=== PATIENT | female | born 1995 | race Caucasian/White ===

== ENCOUNTER 2020-08-31 16:00 | Outpatient (RCR) | payer MEDICAID, SELFPAY | END 2020-09-14 10:52 | disposition other institution (70) | LOC: HO.PT 16:00 | PROVIDERS: PCP Emergency Medicine; Visit Provider Emergency Medicine | DX: M51.36 Other intervertebral disc degeneration, lumbar region (principal); M54.41 Lumbago with sciatica, right side | CPT/HCPCS: 97110; 97112; 97140; 97161 ==

== ENCOUNTER 2020-10-28 10:05 | Outpatient (REF) | payer MEDICAID, SELFPAY ==
[2020-10-29 12:02] LABS: BV Int Neg Control Negative (Negative); BV Int Pos Control Positive (Positive)
[2020-10-30 03:51] LABS: C. trachomatis RNA TMA NOT DETECTED (NOT DETECTED); N. gonorrhoeae RNA TMA NOT DETECTED (NOT DETECTED)
== END 2020-10-28 10:06 | disposition home or self-care (01) ==
LOC: HO.LAB 10:05
PROVIDERS: Visit Provider Advanced Practice Midwife
DX: Z01.419 Encounter for gynecological examination (general) (routine) without abnormal findings (principal); N92.6 Irregular menstruation, unspecified; E66.9 Obesity, unspecified; Z86.32 Personal history of gestational diabetes; Z20.2 Contact with and (suspected) exposure to infections with a predominantly sexual mode of transmission
CPT/HCPCS: 36415; 87480; 87491; 87510; 87591; 87660; 88142

== ENCOUNTER 2020-11-29 13:10 | Outpatient (REF) | payer MEDICAID, SELFPAY ==
[2020-11-29 14:39] LABS: Glucose Fasting 118 mg/dL (60-99)
[2020-11-30 08:47] LABS: Syphilis Screen Nonreactive (Nonreactive)
[2020-11-30 12:36] LABS: CT PCR NOT DETECTED (Not Detect.); NG PCR NOT DETECTED (Not Detect.)
[2020-12-01 04:34] LABS: HIV AB/AG Nonreactive (Nonreactive); HIV Num 1 0.16 S/CO (0.00-0.99); ~HepC Num1 0.07 S/CO (0.00-0.79); ~Hepatitis C Antibody Nonreactive (Nonreactive)
[2020-12-01 04:49] LABS: HBsAGNum1 0.21 S/CO (0.00-0.99); Hepatitis B Surface Antigen Negative (Negative)
== END 2020-11-29 13:11 | disposition home or self-care (01) ==
LOC: HO.LAB 13:10
PROVIDERS: Visit Provider Advanced Practice Midwife
DX: Z01.419 Encounter for gynecological examination (general) (routine) without abnormal findings (principal); Z01.84 Encounter for antibody response examination; Z11.3 Encounter for screening for infections with a predominantly sexual mode of transmission; Z11.4 Encounter for screening for human immunodeficiency virus [HIV]; N92.6 Irregular menstruation, unspecified; E66.9 Obesity, unspecified; Z20.2 Contact with and (suspected) exposure to infections with a predominantly sexual mode of transmission; Z86.32 Personal history of gestational diabetes
CPT/HCPCS: 82947; 86780; 86803; 87340; 87389; 87491; 87591

== ENCOUNTER → 2020-12-20 10:11 | Outpatient (BNVA) | payer MEDICAID, SELFPAY | PROVIDERS: Visit Provider Advanced Practice Midwife ==

== ENCOUNTER → 2021-01-09 09:01 | Outpatient (BNVA) | payer MEDICAID, SELFPAY | PROVIDERS: PCP Nurse Practitioner Family; Visit Provider Nurse Practitioner Family | DX: M53.3 Sacrococcygeal disorders, not elsewhere classified (principal); M54.16 Radiculopathy, lumbar region | CPT/HCPCS: 99202 ==

== ENCOUNTER 2021-01-25 19:00 | Emergency (ER) | payer MEDICAID, SELFPAY ==
--- NOTE | ~2021-01-25 | US_ITS ---
EXAMINATION: ULTRASOUND PELVIC, COMPLETE CLINICAL INFORMATION: Right lower quadrant pain. Positive test. COMPARISON: Pelvic ultrasound 01/29/2019 TECHNIQUE: Transvaginal: Used to better visualize pelvic structures Transabdominal: Not adequate for visualization Spectral Doppler and color Doppler exam was utilized. LMP: 12/16/2020. Gestational age by LMP is 5 weeks 5 days. LINDSAY 09/22/2021 FINDINGS: UTERUS: Single intrauterine gestation. Gestational sac and yolk sac present. Gestational sac, 0.44 cm. Estimated gestational age by this measurement is 5 weeks 0 days.. Gestational sac does lie close to the serosal wall the uterus measuring 0.6 cm in depth. Image 47/57. Gestational sac is at the fundus of the uterus. (This does not therefore meet criteria for interstitial .) Incidental note made of a subserosal cyst in the myometrium of uterus measuring 7 mm. Uterus measures 7.1 x 4.7 x 4.6 cm. ADNEXA: Ovarian vascularity:Doppler demonstrates both arterial and venous vascular flow in the right and left ovary. No evidence of ovarian torsion. Right Ovary: 4.1 x 2.3 x 2.5 cm. Corpus luteum cyst measuring 2.1 x 1.8 x 1.8 cm Left Ovary: 3.4 x 1.7 x 1.4 cm. There is a 0.7 cm echogenic focus without posterior acoustic shadowing within the left ovary. Cul-de-sac: No Fluid US/US OB pelvic and transvaginal IMPRESSION: Single intrauterine gestation. Gestational sac measures 0.44 cm correlating to estimated gestational age of 5 weeks 0 days. This result was discussed with Dr. Maguire. on 01/25/2021, 11:00 PM and it was ascertained that the content and urgency of the report was understood at the time of direct communication.
[2021-01-25 20:26] VITALS: BP 123/67; PULSE 112; RESP 16; TEMP 36.9; O2SAT 96; BMI 36.8
[2021-01-25 21:22] LABS: MANUAL DIFF FLAG NO
[2021-01-25 21:24] LABS: Basophils Percent Auto 0.2 % (0-2); Eosinophils Absolute Auto 0.2 X10*3/uL (0.0-0.4); Eosinophils Percent Auto 1.6 % (0-4); Hemoglobin 13.4 g/dl (12.0-16.0); Imm Gran Abs Auto 0.05 X10*3/uL (0.00-0.03); Imm Gran Pct Auto 0.4 % (0.0-0.4); Lymphocytes Absolute Auto 2.8 X10*3/uL (1.2-4.9); Mean Corpuscular HGB Conc 33.5 g/dl (31.0-35.0); Mean Corpuscular Hemoglobin 28.9 pg (27.0-33.0); Mean Corpuscular Volume 86.2 fL (80-98); Mean Platelet Volume 9.8 fL (9.4-12.3); Monocytes Absolute Auto 0.7 X10*3/uL (0.1-1.2); Monocytes Percent Auto 5.4 % (2-11); Neutrophils Absolute Auto 8.5 X10*3/uL (2.0-8.3); Neutrophils Percent Auto 69.4 % (45-73); Platelet Count 313 X10*3/uL (160-400); Red Blood Count 4.64 X10*6/uL (4.20-5.50); Red Cell Distribution Width 13.2 % (11.0-16.0); White Blood Count 12.2 X10*3/uL (4.8-10.8)
[2021-01-25 21:42] LABS: Appearance Urine HAZY; Color Urine YELLOW; Glucose Urine UA 250 MG/DL (NEG); Leukocyte Esterase Urine 1+ (NEG); Nitrite Urine NEG (NEG); Specific Gravity - Urine 1.025 (1.005-1.025); UACC Culture Trigger YES; Urine Blood NEG (NEG); Urine Ketones 5 MG/DL (NEG); Urine Protein NEG (NEG-TRACE)
[2021-01-25 21:47] LABS: Anion Gap 14 (12-20); Blood Urea Nitrogen 11 mg/dL (9-16); Calcium 9.5 mg/dL (8.4-10.2); Carbon Dioxide 23 mmol/L (22-29); Chloride 104 mmol/L (96-108); Creatinine Clr Calc Pharmacy 127.8; Estimated Glomerular Filt Rate > 60; Glucose Random 154 mg/dL (60-115); Potassium 3.9 mmol/L (3.3-5.1); Sodium 137 mmol/L (135-145)
[2021-01-25 21:51] LABS: Bacteria Urine 1+ /LPF; RBC Urine 0 /HPF (0); Squamous Epithelial Cell Urine 1+ /LPF; WBC Urine 0-2 /HPF (0-4)
--- NOTE | 2021-01-25 21:52 | ED_ITS ---
HPI - Abdominal Pain General Chief Complaint: Abdominal Pain Stated Complaint: pain on right side of stomach Time Seen by Provider: 01/25/21 21:04 Source: patient Mode of arrival: ambulatory History of Present Illness HPI narrative: This is a 25-year-old female, with LMP-12/21 and presents now with onset of right lower quadrant pain since 0 not associated with fever, chills, nausea, vomiting, but reports a couple episodes of diarrhea as well as urinary frequency but no urinary pain/burning. In addition, patient denies any trauma or vaginal bleeding to me but on review of report in triage states that she had a difficult (she does mention loss in the 1st ) and states that she was recently diagnosed with diabetes 2-3 weeks ago and was started on metformin at that time. Related Data Home Medications Medication Instructions Recorded Confirmed cholecalciferol (vitamin D3) 25 25 mcg PO DAILY 10/28/20 01/09/21 mcg (1,000 unit) capsule naproxen 375 mg tablet 375 mg PO BID PRN 01/09/21 01/09/21 Previous Rx's Medication Instructions Recorded metronidazole 0.75 % vaginal gel 1 appful VAGINAL BEDTIME 5 Days 11/08/20 #70 g nitrofurantoin monohyd/m-cryst 100 mg PO Q12H 7 Days #14 cap 01/26/21 [Macrobid] Allergies Allergy/AdvReac Type Severity Reaction Status Date / Time SEAFOOD AdvReac Unknown DIFFICULTY Uncoded 01/25/21 20:31 BREATHING Review of Systems Review of Systems Pertinent positives and negatives as stated in HPI 10 point review of systems is otherwise negative. Physical Exam Vital Signs: Vital Signs: Last Vital Signs Temp 98.2 F 01/25/21 22:00 Pulse 79 01/25/21 22:00 Resp 18 01/25/21 22:00 BP 111/69 01/25/21 22:00 Pulse Ox 99 01/25/21 22:00 Body Mass Index 36.8 VITAL SIGNS: Reviewed. GENERAL: Well developed, well nourished, in no acute distress. HEAD: Normocephalic/atraumatic EYES: PERRLA, EOMI OROPHARYNX: no oral lesions noted, posterior pharynx clear NECK: Supple, no adenopathy LUNGS: Normal breath sounds. No adventitious sounds or accessory muscle use. SpO2<96> CARDIOVASCULAR: Regular rate and rhythm without noted murmurs ABDOMEN: Soft, tenderness on palpation in the right lower quadrant without rebound, non-distended with bowel sounds. SKIN: Inspection of the skin reveals no rashes NEUROLOGIC: Alert and oriented x 4. Course Course Course Narrative: This is a 25-year-old female with history and clinical presentation concerning for possible ectopic, appendicitis, ovarian torsion and less likely UTI. On review of all investigations patient has a UTI and received initial antibiotics here in the emergency room and then was discharged with remaining course. In addition the case was discussed with Obstetrics, Dr. Iglesias, with recommendations for the patient to call in case abdominal pain and to repeat ultrasound in 24 hours to reassess. Reevaluation(s) Reevaluation #1: IUP at fundus, 5.5wks, yolk sac, no pole as it is too early. Time: 22:57 MDM - Abdominal Pain Lab Data Result diagrams: 01/25/21 22:01 01/25/21 21:17 Labs: Lab Results 01/25/21 01/25/21 01/25/21 Range/Units 21:17 21:17 21:17 WBC 12.2 H (4.8-10.8) X10*3/uL RBC 4.64 (4.20-5.50) X10*6/uL Hgb 13.4 (12.0-16.0) g/dl Hct 40.0 (37-47) % MCV 86.2 (80-98) fL MCH 28.9 (27.0-33.0) pg MCHC 33.5 (31.0-35.0) g/dl RDW 13.2 (11.0-16.0) % Plt Count 313 (160-400) X10*3/uL MPV 9.8 (9.4-12.3) fL Immature Gran % (Auto) 0.4 (0.0-0.4) % Neut % (Auto) 69.4 (45-73) % Lymph % (Auto) 23.0 (20-40) % Dickens % (Auto) 5.4 (2-11) % Eos % (Auto) 1.6 (0-4) % Baso % (Auto) 0.2 (0-2) % Lymph # (Auto) 2.8 (1.2-4.9) X10*3/uL Dickens # (Auto) 0.7 (0.1-1.2) X10*3/uL Eos # (Auto) 0.2 (0.0-0.4) X10*3/uL Baso # (Auto) 0.0 (0.0-0.2) X10*3/uL Abs Immat Gran (auto) 0.05 H (0.00-0.03) X10*3/uL Absolute Neuts (auto) 8.5 H (2.0-8.3) X10*3/uL Absolute Nucleated RBC 0.000 (0.0-0.012) X10*3/uL Nucleated RBC % (auto) 0.0 (0.0-0.2) /100WBC Sodium 137 (135-145) mmol/L Potassium 3.9 (3.3-5.1) mmol/L Chloride 104 (96-108) mmol/L Carbon Dioxide 23 (22-29) mmol/L Anion Gap 14 (12-20) BUN 11 (9-16) mg/dL Creatinine 0.75 (0.5-1.4) mg/dL Estim Creat Clear Calc 127.8 Estimated GFR > 60 Random Glucose 154 H (60-115) mg/dL Calcium 9.5 (8.4-10.2) mg/dL Beta HCG, Quant 2207 mIU/mL Urine Color Urine Appearance Urine pH (5.0-8.0) Ur Specific [place] (1.005-1.025) Urine Protein (NEG-TRACE) MG/DL Urine Glucose (UA) (NEG) MG/DL Urine Ketones (NEG) MG/DL Urine Blood (NEG) Urine Nitrite (NEG) Ur Leukocyte Esterase (NEG) Urine RBC (0) /HPF Urine WBC (0-4) /HPF Ur Squamous Epith Cells /LPF Urine Bacteria /LPF 01/25/21 01/25/21 Range/Units 21:17 22:01 WBC 12.2 H (4.8-10.8) X10*3/uL RBC 4.17 L (4.20-5.50) X10*6/uL Hgb 12.1 (12.0-16.0) g/dl Hct 36.2 L (37-47) % MCV 86.8 (80-98) fL MCH 29.0 (27.0-33.0) pg MCHC 33.4 (31.0-35.0) g/dl RDW 13.2 (11.0-16.0) % Plt Count 298 (160-400) X10*3/uL MPV 9.8 (9.4-12.3) fL Immature Gran % (Auto) 0.4 (0.0-0.4) % Neut % (Auto) 66.8 (45-73) % Lymph % (Auto) 24.5 (20-40) % Dickens % (Auto) 6.1 (2-11) % Eos % (Auto) 2.0 (0-4) % Baso % (Auto) 0.2 (0-2) % Lymph # (Auto) 3.0 (1.2-4.9) X10*3/uL Dickens # (Auto) 0.7 (0.1-1.2) X10*3/uL Eos # (Auto) 0.3 (0.0-0.4) X10*3/uL Baso # (Auto) 0.0 (0.0-0.2) X10*3/uL Abs Immat Gran (auto) 0.05 H (0.00-0.03) X10*3/uL Absolute Neuts (auto) 8.2 (2.0-8.3) X10*3/uL Absolute Nucleated RBC 0.000 (0.0-0.012) X10*3/uL Nucleated RBC % (auto) 0.0 (0.0-0.2) /100WBC Sodium (135-145) mmol/L Potassium (3.3-5.1) mmol/L Chloride (96-108) mmol/L Carbon Dioxide (22-29) mmol/L Anion Gap (12-20) BUN (9-16) mg/dL Creatinine (0.5-1.4) mg/dL Estim Creat Clear Calc Estimated GFR Random Glucose (60-115) mg/dL Calcium (8.4-10.2) mg/dL Beta HCG, Quant mIU/mL Urine Color YELLOW Urine Appearance HAZY Urine pH 6.0 (5.0-8.0) Ur Specific [place] 1.025 (1.005-1.025) Urine Protein NEG (NEG-TRACE) MG/DL Urine Glucose (UA) 250 H (NEG) MG/DL Urine Ketones 5 (NEG) MG/DL Urine Blood NEG (NEG) Urine Nitrite NEG (NEG) Ur Leukocyte Esterase 1+ H (NEG) Urine RBC 0 (0) /HPF Urine WBC 0-2 (0-4) /HPF Ur Squamous Epith Cells 1+ /LPF Urine Bacteria 1+ /LPF Discharge Plan Discharge Clinical Impression: , Abdominal pain during intrauterine Patient Disposition: Home, Self-Care Instructions: (ED) Additional Instructions: 1. Empiece a ana maría vitaminas prenatales si a?n no lo valdez hecho. 2. Establecer cuidados con obstetricia. 3. Si experimenta un aumento del dolor, llame a garnica obstetra o regrese a la antoinette de emergencias. 4. Puede usar Tylenol para el dolor t?ligia bruce el embarazo. Regrese a la antoinette de emergencias por cualquier empeoramiento real de beau s?ntomas. Prescriptions: New nitrofurantoin monohyd/m-cryst [Macrobid] 100 mg capsule 100 mg PO Q12H 7 Days Qty: 14 RF: 0 No Action metronidazole [Metrogel Vaginal] 0.75 % gel 1 appful vaginal BEDTIME 5 Days Qty: 70 RF: 0 cholecalciferol (vitamin D3) 25 mcg (1,000 unit) capsule 25 mcg PO DAILY RF: 0 naproxen 375 mg tablet 375 mg PO BID PRNRF: 0 Referrals: [facility] [Primary Care Provider] - 2 days Print Language: Irish [facility] Past Medical History Source: nursing notes reviewed Medical History Hx gestational diabetes Social History Social History Alcohol intake: never Patient Tobacco Use Status: Current everyday Tobacco user Cigarettes Per Day: 4 Use of substances other than those prescribed or required for medical reasons: No Advance Directives: No Patient : Yes Gender identity: female
[2021-01-25 21:54] LABS: HCG Quantitative 2207 mIU/mL
[2021-01-25 22:00] VITALS: BP 111/69; PULSE 79; RESP 18; TEMP 36.8; O2SAT 99
[2021-01-25 22:13] LABS: Basophils Percent Auto 0.2 % (0-2); Eosinophils Absolute Auto 0.3 X10*3/uL (0.0-0.4); Hematocrit 36.2 % (37-47); Hemoglobin 12.1 g/dl (12.0-16.0); Imm Gran Abs Auto 0.05 X10*3/uL (0.00-0.03); Imm Gran Pct Auto 0.4 % (0.0-0.4); Lymphocytes Percent Auto 24.5 % (20-40); MANUAL DIFF FLAG NO; Mean Corpuscular HGB Conc 33.4 g/dl (31.0-35.0); Mean Corpuscular Volume 86.8 fL (80-98); Mean Platelet Volume 9.8 fL (9.4-12.3); Monocytes Absolute Auto 0.7 X10*3/uL (0.1-1.2); Monocytes Percent Auto 6.1 % (2-11); Neutrophils Absolute Auto 8.2 X10*3/uL (2.0-8.3); Neutrophils Percent Auto 66.8 % (45-73); Platelet Count 298 X10*3/uL (160-400); Red Blood Count 4.17 X10*6/uL (4.20-5.50); Red Cell Distribution Width 13.2 % (11.0-16.0); White Blood Count 12.2 X10*3/uL (4.8-10.8)
[2021-01-25] MEDS: cefTRIAXone sodium 1 GM in 0.9 % Sodium Chloride 50 ML IV (23:10)
== END 2021-01-26 00:47 | disposition home or self-care (01) ==
PROVIDERS: Emergency Provider Student in an Organized Health Care Education/Training Program
DX: O26.891 Other specified pregnancy related conditions, first trimester (principal); R10.31 Right lower quadrant pain; O34.81 Maternal care for other abnormalities of pelvic organs, first trimester; N83.11 Corpus luteum cyst of right ovary; O34.591 Maternal care for other abnormalities of gravid uterus, first trimester; N85.8 Other specified noninflammatory disorders of uterus; O24.415 Gestational diabetes mellitus in pregnancy, controlled by oral hypoglycemic drugs; O99.331 Smoking (tobacco) complicating pregnancy, first trimester; F17.210 Nicotine dependence, cigarettes, uncomplicated; Z3A.01 Less than 8 weeks gestation of pregnancy
CPT/HCPCS: 36415; 76801; 76817; 80048; 81001; 81003; 84702; 85025; 87086; 96365; 99284; J0696

== ENCOUNTER 2021-02-02 10:19 | Outpatient (REF) | payer MEDICAID, SELFPAY ==
[2021-02-02 12:46] LABS: HCG Quantitative 11827 mIU/mL
== END 2021-02-02 10:20 | disposition home or self-care (01) ==
LOC: HO.LAB 10:19
PROVIDERS: Visit Provider Advanced Practice Midwife
DX: O20.0 Threatened abortion (principal); O99.330 Smoking (tobacco) complicating pregnancy, unspecified trimester; F17.210 Nicotine dependence, cigarettes, uncomplicated
CPT/HCPCS: 36415; 84702; 86850; 86900; 86901; 99212

== ENCOUNTER → 2021-02-07 10:31 | Outpatient (BNVA) | payer MEDICAID, SELFPAY | PROVIDERS: Visit Provider Advanced Practice Midwife ==

== ENCOUNTER 2021-02-10 14:27 | Outpatient (REF) | payer MEDICAID, SELFPAY ==
--- NOTE | ~2021-02-10 | US_ITS ---
EXAMINATION: US OBSTETRICAL ULTRASOUND CLINICAL INFORMATION: Bleeding COMPARISON: Previous OB ultrasound most recent 01/25/2021 LMP: 12/16/2020. Gestational age by maternal dates is 8 weeks 0 days. Estimated date of delivery by maternal dates is 09/22/2021. TECHNIQUE: Transabdominal first trimester OB ultrasound FINDINGS: There is a single intrauterine gestational sac with visible yolk sac, embryo/fetus, and cardiac activity. There is no significant subchorionic hemorrhage or hematoma. HR: 160 beats per minute. CRL (crown rump length): 1.35 cm (7 weeks 5 days +/- 4 days). LINDSAY (estimated date of delivery): 09/24/2021 +/- 4 days. MATERNAL ADNEXA: The right maternal ovary measures 3.6 x 3.1 x 2.3 cm. The left maternal ovary measures 3.4 x 1.9 x 1.8 cm. There is no significant maternal adnexal mass. No maternal pelvic ascites. US/US OB <= 14 weeks fetus IMPRESSION: 1. Single intrauterine gestation with ultrasound gestational age of 7 weeks 5 days +/- 4 days. 2. Estimated date of delivery is 09/24/2021 +/- 4 days.
== END 2021-02-10 14:28 | disposition home or self-care (01) ==
LOC: HO.US 14:27
PROVIDERS: Visit Provider Advanced Practice Midwife
DX: O20.9 Hemorrhage in early pregnancy, unspecified (principal)
CPT/HCPCS: 76801

== ENCOUNTER 2021-02-19 17:45 | Emergency (ER) | payer MEDICAID, SELFPAY ==
--- NOTE | ~2021-02-19 | US_ITS ---
EXAMINATION: US OBSTETRICAL ULTRASOUND CLINICAL INFORMATION: Vaginal bleeding Real-time imaging by the pulping machine operator. Findings; Single live intrauterine . Salome-rump length 2.2 cm corresponds to 8 weeks 6 days. Positive heart rate 169 bpm. There is a yolk sac. There is lucency seen adjacent to the gestational sac. This would be most consistent with subchorionic bleed. The right ovary is 3.9 x 3 x 2.9 cm. Small 2.1 x 1.7 cm cyst associated The left ovary is measuring 2.7 x 1.8 x 2.1 cm. No suspicious fluid in the cul-de-sac. US/US OB <= 14 weeks fetus IMPRESSION: Single live intrauterine . 9 weeks by ultrasound criteria. There is a fluid collection measured by the pulping machine operator adjacent to the gestational sac measuring 2.2 cm which would indicate an area of subchorionic hemorrhage. Continued follow-up recommended No free fluid. Small cyst associated with the right ovary
[2021-02-19 18:22] VITALS: BP 142/72; PULSE 109; RESP 16; TEMP 36.4; O2SAT 99; BMI 40.8
--- NOTE | 2021-02-19 19:09 | ED_ITS ---
HPI - General Chief complaint: Vaginal Bleeding Stated complaint: vaginal bleeding, 9 weeks preg Time Seen by Provider: 02/19/21 18:37 Source: patient Mode of arrival: ambulatory Limitations: no limitations History of Present Illness HPI Narrative: 25-year-old female who is currently 9 weeks with a last menstrual period of 12/16/2020 with an estimated due date of 09/22/2021 to confirmed by ultrasound who is 0 negative for blood type and is [id number] presenting to the ED with complaints of vaginal bleeding bright red blood with clots since 16:00 this afternoon. Reports that she has had to change her pad 3 times. Reports mild abdominal cramping. Patient was last seen by OBGYN on 02/02/2021. Denies any fevers, nausea / vomiting, chest pain or shortness of breath, any dizziness, palpitations, back pain, abnormal vaginal discharge or any other symptoms complaints or concerns at this time. 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 ) Pain Consistency: constant Quality: Cramping and Aching Associated symptoms: denies other symptoms Vaginal discharge: none Vaginal bleeding: heavy and clots Number of Weeks : 9 OB History - Current : no complications OB History - Previous Pregnancies: gestational diabetes and miscarriage care: followed by OB and previous ultrasound confirms IUP Related Data : 3 Para: 1 Total number of abortions (spontaneous and elective): 1 Home Medications Medication Instructions Recorded Confirmed cholecalciferol (vitamin D3) 25 25 mcg PO DAILY 10/28/20 01/09/21 mcg (1,000 unit) capsule naproxen 375 mg tablet 375 mg PO BID PRN 01/09/21 01/09/21 Previous Rx's Medication Instructions Recorded metronidazole 0.75 % vaginal gel 1 appful VAGINAL BEDTIME 5 Days 11/08/20 #70 g nitrofurantoin monohyd/m-cryst 100 mg PO Q12H 7 Days #14 cap 01/26/21 [Macrobid] vitamin with calcium 1 tab PO DAILY #30 tab 02/02/21 no.72-iron 27 mg-folic acid 1 mg tablet Allergies Allergy/AdvReac Type Severity Reaction Status Date / Time SEAFOOD AdvReac Unknown DIFFICULTY Uncoded 01/25/21 20:31 BREATHING Review of Systems Review of Systems: Constitutional : No Fever, No Chills ENT/Mouth : No sore throat, No Rhinorrhea Eyes: No Eye Pain, No Redness Cardiovascular : No Chest Pain, No SOB Respiratory : No Cough, No Sputum, No Wheezing Gastrointestinal : Positive abdominal pain, No Nausea, No Vomiting, No Diarrhea Genitourinary : Positive irregular bleeding, No Dysuria, No Urinary Frequency, No pelvic pain, No vaginal discharge, no hematuria Musculoskeletal : No Myalgias Skin : No rash Neuro : No Weakness, No Headache Psych : No Anxiety/Panic, No Depression Heme/Lymph: No bruising, No Lymphadenopathy Endocrine : No Polyuria, No Polydipsia Yes all other systems are reviewed and are negative [facility] Past Medical History Attestation statement: The following information was validated with the patient. Medical History Hx gestational diabetes : 3 Para: 1 Total number of abortions (spontaneous and elective): 1 Social History Social History Alcohol intake: never Patient Tobacco Use Status: Current everyday Tobacco user Cigarettes Per Day: 4 Advance Directives: No Advance Directives Information Provided: Yes Patient : No Gender identity: female Physical Exam Vital Signs: Vital Signs: Last Vital Signs Temp 97.6 F 02/19/21 18:22 Pulse 109 H 02/19/21 18:22 Resp 16 02/19/21 18:22 BP 142/72 H 02/19/21 18:22 Pulse Ox 99 02/19/21 18:22 Body Mass Index 40.8 vital signs have been reviewed as normal and appeared to be correct. Blood pressure hypertensive at 142/72. Heart rate tachycardic at 109. Respiration rate normal. Temperature normal. Oxygen saturation normal. Appearance: Alert. Oriented X3. No acute distress. Head: Normal external exam. Normocephalic. Atraumatic. \ Eyes: PERRLA. EOMI. Conjunctiva and sclera normal. Eyelids normal. ENT: EAC normal. TM's Normal. Pharynx normal. Uvula midline. Moist mucous membranes. Neck: Normal inspection. Neck supple. FROM. No adenopathy. Thyroid Normal. No meningeal signs. No neck mass noted. CVS: Normal heart rate and rhythm. Heart sound normal. No murmurs noted. Pulses normal throughout. Respiratory: No respiratory distress. Painless inspiration. Breath sounds normal. No wheezes/rales/rhonchi noted. Chest nontender. No accessory muscle usage noted or decreased air movement noted. Abdomen: Soft and nontender. Bowel sounds normal in all 4 quadrants. No distention noted. No organomegaly noted. No visible injury noted. : Supervised by KERWIN Schwarz. Normal external appearance of urethra. No lesions/lacerations or discharge or tenderness noted. Speculum exam normal appearance/palpation of vagina normal. patient does have vaginal bleeding she has bright red blood on exam and a clot right at the cervix when the clot was removed patient did not have any active bleeding. No abnormal vaginal discharge noted. Otherwise no vaginal erythema. No foreign bodies noted. No vaginal laceration/lesions noted. No tissue present in vagina. No vaginal mass noted. No vaginal swelling noted. No vaginal tenderness noted. Normal appearance of cervix. Normal palpation of cervix. Cervical os is closed. No abnormal cervical discharge noted. No cervical lesion/mass. No Bartholin cyst noted. No cervical motion tenderness noted. Negative chandelier sign. Normal bimanual exam. Uterine size normal. Bladder normal to palpation. Uterine consistency normal. Normal cervical palpation. Uterine mobility normal. Uterine shape normal. Normal adnexa. Normal rectovaginal exam. Back: No CVA tenderness. Full range of motion noted. Skin: Skin warm and dry. Normal skin color. Normal skin turgor. No rashes /lesions/lacerations noted. Extremities: No lower extremity edema. Extremities exhibit normal range of motion. Extremities nontender. Neuro: Oriented X 3. No motor deficit. No sensory deficit. Reflexes normal. Course Course Course Narrative: 18:40pm 25-year-old female who is currently 9 weeks with a last menstrual period of 12/16/2020 with an estimated due date of 09/22/2019 to confirmed by ultrasound who is O negative for blood type and is [id number] presenting to the ED with complaints of vaginal bleeding bright red blood with clots since 16:00 this afternoon. Reports that she has had to change her pad 3 times. Reports mild abdominal cramping. Plan: Labs, RH factor, OB US. Give the patient RhoGAM. Provide a L of IV fluids and re-evaluate. Reevaluation(s) Reevaluation #1: - sign out to Dillon, OTHER SPATIAL SCIENTIST pending above Time: 19:38 Procedures Perimortem Number of Weeks : 9 MDM - OB/Uterine Contractions Medical Records Attestation: I reviewed the patient's medical records. Lab Data Attestation: I reviewed the patient's lab results. Result diagrams: 02/19/21 19:18 02/19/21 19:17 Labs: Lab Results 02/19/21 Range/Units 19:18 WBC 12.5 H (4.8-10.8) X10*3/uL RBC 4.41 (4.20-5.50) X10*6/uL Hgb 12.5 (12.0-16.0) g/dl Hct 37.4 (37-47) % MCV 84.8 (80-98) fL MCH 28.3 (27.0-33.0) pg MCHC 33.4 (31.0-35.0) g/dl RDW 12.4 (11.0-16.0) % Plt Count 329 (160-400) X10*3/uL MPV 9.7 (9.4-12.3) fL Immature Gran % (Auto) 0.5 H (0.0-0.4) % Neut % (Auto) 71.2 (45-73) % Lymph % (Auto) 20.7 (20-40) % [place] % (Auto) 5.4 (2-11) % Eos % (Auto) 2.0 (0-4) % Baso % (Auto) 0.2 (0-2) % Lymph # (Auto) 2.6 (1.2-4.9) X10*3/uL [place] # (Auto) 0.7 (0.1-1.2) X10*3/uL Eos # (Auto) 0.3 (0.0-0.4) X10*3/uL Baso # (Auto) 0.0 (0.0-0.2) X10*3/uL Abs Immat Gran (auto) 0.06 H (0.00-0.03) X10*3/uL Absolute Neuts (auto) 8.9 H (2.0-8.3) X10*3/uL Absolute Nucleated RBC 0.000 (0.0-0.012) X10*3/uL Nucleated RBC % (auto) 0.0 (0.0-0.2) /100WBC Critical Care Time Critical Care Time Critical Care Time: Yes Total Critical Care Time: 60 Attestation: I personally attest to this time spent taking care of the patient Discharge Plan Discharge Clinical Impression: Vaginal bleeding Prescriptions: No Action metronidazole [Metrogel Vaginal] 0.75 % gel 1 appful vaginal BEDTIME 5 Days Qty: 70 RF: 0 nitrofurantoin monohyd/m-cryst [Macrobid] 100 mg capsule 100 mg PO Q12H 7 Days Qty: 14 RF: 0 cholecalciferol (vitamin D3) 25 mcg (1,000 unit) capsule 25 mcg PO DAILY RF: 0 naproxen 375 mg tablet 375 mg PO BID PRNRF: 0 Vitamin Plus Low Iron 27 mg iron- 1 mg tablet 1 tab PO DAILY Qty: 30 RF: 11
[2021-02-19] MEDS: 0.9 % Sodium Chloride 1,000 ML 999 ML IVCONT (19:21)
[2021-02-19 19:25] LABS: MANUAL DIFF FLAG NO
[2021-02-19 19:28] LABS: Basophils Percent Auto 0.2 % (0-2); Eosinophils Absolute Auto 0.3 X10*3/uL (0.0-0.4); Hematocrit 37.4 % (37-47); Hemoglobin 12.5 g/dl (12.0-16.0); Imm Gran Abs Auto 0.06 X10*3/uL (0.00-0.03); Imm Gran Pct Auto 0.5 % (0.0-0.4); Lymphocytes Absolute Auto 2.6 X10*3/uL (1.2-4.9); Lymphocytes Percent Auto 20.7 % (20-40); Mean Corpuscular HGB Conc 33.4 g/dl (31.0-35.0); Mean Corpuscular Hemoglobin 28.3 pg (27.0-33.0); Mean Corpuscular Volume 84.8 fL (80-98); Mean Platelet Volume 9.7 fL (9.4-12.3); Monocytes Absolute Auto 0.7 X10*3/uL (0.1-1.2); Monocytes Percent Auto 5.4 % (2-11); Neutrophils Absolute Auto 8.9 X10*3/uL (2.0-8.3); Neutrophils Percent Auto 71.2 % (45-73); Platelet Count 329 X10*3/uL (160-400); Red Blood Count 4.41 X10*6/uL (4.20-5.50); Red Cell Distribution Width 12.4 % (11.0-16.0); White Blood Count 12.5 X10*3/uL (4.8-10.8)
[2021-02-19 19:33] LABS: Prothrombin Time 11.9 SEC (10.8-13.0)
[2021-02-19 19:43] LABS: COVID-19 Test Negative (Negative)
[2021-02-19 19:48] LABS: Alanine Aminotransferase 10 U/L (0-31); Albumin Level 3.9 g/dL (3.5-5.0); Alkaline Phosphatase 88 U/L (39-117); Anion Gap 13 (12-20); Aspartate Amino Transferase 8 U/L (5-31); Bilirubin Total 0.3 mg/dL (0.0-1.0); Blood Urea Nitrogen 12 mg/dL (9-16); Calcium 9.4 mg/dL (8.4-10.2); Carbon Dioxide 24 mmol/L (22-29); Chloride 106 mmol/L (96-108); Creatinine Clr Calc Pharmacy 117.6; Estimated Glomerular Filt Rate > 60; Glucose Random 229 mg/dL (60-115); Potassium 4.5 mmol/L (3.3-5.1); Sodium 138 mmol/L (135-145); Total Protein 7.6 g/dL (6.5-8.0)
[2021-02-19 20:08] LABS: Glucose Urine UA >=1000 MG/DL (NEG); Leukocyte Esterase Urine NEG (NEG); Nitrite Urine NEG (NEG); PH 5.5 (5.0-8.0); Specific Gravity - Urine >= 1.030 (1.005-1.025); UPreg QC Valid YES; Urine Blood 3+ (NEG); Urine Ketones 15 MG/DL (NEG); Urine Pregnancy POSITIVE (NEGATIVE); Urine Protein 1+ MG/DL (NEG-TRACE)
[2021-02-19 20:09] LABS: Appearance Urine CLOUDY
[2021-02-19 20:10] LABS: Color Urine PINK
[2021-02-19 20:15] LABS: HCG Quantitative 37345 mIU/mL
[2021-02-19 20:25] LABS: Bacteria Urine TRACE /LPF; RBC Urine TNTC /HPF (0); Squamous Epithelial Cell Urine TRACE /LPF; WBC Urine 0-2 /HPF (0-4)
[2021-02-19] MEDS: Rho(D) Immune Globulin 300 MCG SYRINGE IM (20:56)
[2021-02-20 02:51] LABS: CT PCR NOT DETECTED (Not Detect.); NG PCR NOT DETECTED (Not Detect.)
[2021-02-20 09:17] LABS: BV Int Neg Control Negative (Negative); BV Int Pos Control Positive (Positive)
== END 2021-02-19 22:20 | disposition home or self-care (01) ==
PROVIDERS: Physician Assistant Medical; Emergency Provider Internal Medicine
DX: O20.9 Hemorrhage in early pregnancy, unspecified (principal); O36.0110 Maternal care for anti-D [Rh] antibodies, first trimester, not applicable or unspecified; O34.81 Maternal care for other abnormalities of pelvic organs, first trimester; N83.201 Unspecified ovarian cyst, right side; Z3A.09 9 weeks gestation of pregnancy
CPT/HCPCS: 36415; 36430; 76801; 80053; 81001; 81025; 83735; 84702; 85025; 85610; 86900; 86901; 87480; 87491; 87510; 87591; 87635; 87660; 96360; 96372; 99284; 99291; J2790

== ENCOUNTER → 2021-02-20 13:56 | Outpatient (BNVA) | payer MEDICAID, SELFPAY | PROVIDERS: Visit Provider Advanced Practice Midwife | DX: O26.891 Other specified pregnancy related conditions, first trimester (principal); M53.3 Sacrococcygeal disorders, not elsewhere classified; O99.211 Obesity complicating pregnancy, first trimester; E66.9 Obesity, unspecified; O99.810 Abnormal glucose complicating pregnancy; Z3A.09 9 weeks gestation of pregnancy | CPT/HCPCS: 99212 ==

== ENCOUNTER → 2021-03-03 13:38 | Outpatient (BNVA) | payer MEDICAID, SELFPAY | PROVIDERS: Visit Provider Advanced Practice Midwife | DX: O24.311 Unspecified pre-existing diabetes mellitus in pregnancy, first trimester (principal); O99.810 Abnormal glucose complicating pregnancy; Z86.32 Personal history of gestational diabetes; Z3A.10 10 weeks gestation of pregnancy | CPT/HCPCS: 81003; 99212 ==

== ENCOUNTER 2021-03-10 11:40 | Outpatient (REF) | payer MEDICAID, SELFPAY ==
--- NOTE | ~2021-03-10 | US_ITS ---
EXAMINATION: OBSTETRICAL ULTRASOUND, FIRST TRIMESTER HISTORY: 25-year-old at 12.0 weeks of gestation History of delivery NT screening COMPARISON: 02/19/2021 TECHNIQUE: Real time transabdominal imaging with color and M-mode Doppler. FINDINGS: A single, live IUP CRL of 50.4 mm c/w 11.6wks is noted. Heart Rate: 150 beats per minute. Normal yolk sac seen. NT was 1.6.mm. NB Present The embryo appears sonographically wnl for this GA. Both maternal ovaries are seen and appear normal. GESTATIONAL AGE: 1. Established GA: 12.0 wks 2. GA from AUA: 11.6 wks ESTIMATED DATE OF DELIVERY: 1. Established LINDSAY: 09/22/2021 2. LINDSAY from AUA: 09/23/2021 US/US OB 1T nuc measure IMPRESSION: 1. A single live IUP 2. Size equals dates 3. NT of 1.6 mm MFM Consultation: I reviewed the ultrasound findings along with significance of NT measurement. The NT of less than 3mm is generally reassuring. However, the sensitivity for T21 detection is only 60%. I reviewed the availability of serum aneuploidy screening which includes cell-free DNA and placental protein based tests. I discussed the sensitivity, false-positive rate, and other limitations associated with each test. I also reviewed the availability of invasive diagnostic tests that are associated small but definite risk of miscarriage. We also reviewed the differences between screening tests and diagnostic tests. After our discussion, she opted for the First trimester screening that is based on cell-free DNA or non-invasive testing (NIPT). Her first resulted in delivery at approximately 32 weeks of gestation. The baby lived for approximately 1 day due to prematurity. The delivery was in [place]. Her second was approximately 4 years ago. She received weekly IM progesterone injection and went to term. Delivered a healthy baby with weight of approximately 8 lbs. She is 2 years of age and healthy. The recurrence risk of delivery is approximately 30%. Although there is controversy regarding the effectiveness of preventing delivery, given her history, I would suggest starting weekly IM progesterone injection btw 16 to 20 weeks of gestation until 36 wks. A follow up at 18 weeks for survey has been scheduled. Thank you very much for this referral. Total time 30 minutes. The time spent was devoted to counseling the patient about the disease and diagnosis, coordinating care including reviewing her records, pertinent lab data and studies, as well as discussing diagnostic evaluation and workup, plan therapeutic interventions and future disposition of care. This includes any additional research needed to obtain further information in formulating the plan of care of this patient. This note was generated with a voice recognition program. Please excuse any errors which may have been overlooked during my review of this note. Sometimes these errors may affect the content or meaning of a given sentence.
== END 2021-03-10 11:41 | disposition home or self-care (01) ==
LOC: HO.US 11:40
PROVIDERS: Visit Provider Advanced Practice Midwife
DX: Z34.91 Encounter for supervision of normal pregnancy, unspecified, first trimester (principal)
CPT/HCPCS: 76813

== ENCOUNTER → 2021-03-22 10:04 | Outpatient (BNVA) | payer MEDICAID, SELFPAY | PROVIDERS: Visit Provider Advanced Practice Midwife | DX: O24.311 Unspecified pre-existing diabetes mellitus in pregnancy, first trimester (principal); E11.9 Type 2 diabetes mellitus without complications; Z3A.13 13 weeks gestation of pregnancy; Z79.84 Long term (current) use of oral hypoglycemic drugs | CPT/HCPCS: 99212 ==

== ENCOUNTER 2021-05-19 10:04 | Emergency (ER) | payer MEDICAID, SELFPAY ==
[2021-05-19 10:17] VITALS: BP 131/68; PULSE 100; RESP 19; TEMP 37; O2SAT 97; BMI 37.2
--- NOTE | 2021-05-19 10:40 | ED_ITS ---
HPI - URI/Sore Throat General Chief Complaint: Upper Respiratory Symptoms Stated Complaint: COUGH RUNNING NOSE Time Seen by Provider: 05/19/21 10:40 Source: patient Mode of arrival: ambulatory Limitations: language barrier History of Present Illness HPI Narrative: 25-year-old female who is 22 weeks presents for cough and runny nose that started yesterday. No fevers, no abdominal pain, no nausea, no vomiting, no cough. Patient has been feeling the baby move, has no vaginal discharge, no vaginal bleeding. Patient states her right ear is a little sore. Patient is due for an ultrasound on Saturday because 3 days ago she had a very scant brown discharge. 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 Saturday Related Data Home Medications Medication Instructions Recorded Confirmed cholecalciferol (vitamin D3) 25 25 mcg PO DAILY 10/28/20 03/22/21 mcg (1,000 unit) capsule metformin 500 mg tablet 500 mg PO DAILY 03/03/21 03/22/21 Previous Rx's Medication Instructions Recorded vitamin with calcium 1 tab PO DAILY #30 tab 02/02/21 no.72-iron 27 mg-folic acid 1 mg tablet ( Vitamins Plus Low Iron) Allergies Allergy/AdvReac Type Severity Reaction Status Date / Time SEAFOOD AdvReac Unknown DIFFICULTY Uncoded 03/22/21 10:25 BREATHING Review of Systems Constitutional: Constitutional: Denies body ache(s), Denies chills, Denies fatigue, Denies fever(s), Denies headache(s), Denies malaise and Denies weakness Eyes: Eyes: Denies diplopia ENT: Denies vertigo, Denies dizziness, Reports otalgia, Denies headache(s), Denies sore throat and Denies throat swelling Cardiovascular: Cardiovascular: Denies chest pain, Denies syncope, Denies leg edema, Denies lightheadedness, Denies Loss of Consciousness, Denies palpitations and Denies dyspnea Respiratory: Respiratory: Denies chest congestion, Reports cough, Denies pain on inspiration, Denies pain with cough and Denies dyspnea Gastrointestinal: Gastrointestinal: Denies abdominal pain, Denies hematochezia, Denies constipation, Denies diarrhea and Denies vomiting Genitourinary: Genitourinary: Denies abnormal vaginal bleeding, Denies hematuria, Denies dysuria, Denies pelvic pain and Denies vaginal discharge Musculoskeletal: Musculoskeletal: Reports no additional musculoskeletal complaints Neurologic: Denies confusion, Denies vertigo, Denies dizziness, Denies syncope, Denies headache(s) and Denies weakness Psychiatric: Psychiatric: Denies anxiety, Denies confusion and Denies depression Endocrine: Endocrine: Denies fatigue and Denies palpitations Allergic/Immunologic: Allergic/Immunologic: Denies throat swelling PMFSH Past Medical History Medical History Hx gestational diabetes Family History Family History Mother Diabetes mellitus Lupus Asthma Maternal Grandmother Diabetes mellitus HTN (hypertension) CAD (coronary artery disease) Maternal Grandfather No problems noted. 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 Current occupational exposures/hazards: No Gender identity: Female Physical Exam Vital Signs: Vital Signs: Last Vital Signs Temp 98.6 F 05/19/21 10:17 Pulse 100 05/19/21 10:17 Resp 19 05/19/21 10:17 BP 131/68 05/19/21 10:17 Pulse Ox 97 05/19/21 10:17 Body Mass Index 37.2 Const: General: No confusion Nutritional Appearance: well nourished Orientation/consciousness: No confusion Limitations: no limitations HENMT: Head: Yes normal to inspection, Yes normocephalic and Yes atraumatic Ears: hearing grossly normal bilaterally, external ears normal, TM's normal bilaterally and EAC's normal General nose exam: Normal external nose present Face and sinus: Yes normal facial exam and Yes sinuses nontender Mouth: Normal oral and palatal mucosa present Throat: Yes posterior oropharynx normal Eyes: Conjunctivae: conjunctivae normal Pupils: Equal, round and reactive pupils present EOM: EOMs intact bilaterally Neck: Neck: Yes full ROM, Yes no lymphadenopathy and Yes supple Resp: Effort & Inspection: normal respiratory effort and able to speak in complete sentences Auscultation: clear to auscultation bilaterally, no crackles, no rales, no rhonchi and no wheezes Cardio: Rate: regular rate Rhythm: regular rhythm Heart sounds: S1 normal heart sound present and S2 normal heart sound present GI: Inspection: Yes normal to inspection Palpation (GI): Soft to palpation, nontender, no guarding and not rigid Percussion: Yes normal to percussion Auscultation: normal bowel sounds Skin: General skin exam: no rashes or lesions noted Neuro: General: No confusion Cranial nerves: Yes Equal, round and reactive pupils present Extrem: General: Yes normal to inspection and Yes full ROM Psych: Appearance: grossly normal Affect: normal affect Attitude: cooperative Thought process: Normal thought process present Course Course Course Narrative: Patient COVID negative, counseled supportive treatment such as push fluids, take Tylenol, rest MDM - URI/Sore Throat Lab Data Labs: Lab Results 05/19/21 Range/Units 10:48 COVID-19 (MYRA) Negative (Negative) COVID-19 Clin Com See Note Discharge Plan Discharge Clinical Impression: Viral syndrome Patient Disposition: Home, Self-Care Instructions: Viral Syndrome (ED) Additional Instructions: Please rest, drink plenty of fluids, follow-up with your OBGYN for appointment on Saturday Prescriptions: No Action cholecalciferol (vitamin D3) 25 mcg (1,000 unit) capsule 25 mcg PO DAILY RF: 0 Vitamin Plus Low Iron 27 mg iron- 1 mg tablet 1 tab PO DAILY Qty: 30 RF: 11 metformin 500 mg tablet 500 mg PO DAILY RF: 0 Stand Alone Forms: Work/School Release Interventions: ED Discharge Assessment Last Done: 05/19/21 11:58 Discharge Date/Time: 05/19/21 11:58
[2021-05-19 11:12] LABS: COVID-19 Test Negative (Negative); IDNOW Serial# 9DD0AD1C
== END 2021-05-19 11:58 | disposition home or self-care (01) ==
PROVIDERS: Physician Assistant; Emergency Provider Emergency Medicine
DX: O98.512 Other viral diseases complicating pregnancy, second trimester (principal); Z3A.22 22 weeks gestation of pregnancy; R05 Cough; Z20.822 Contact with and (suspected) exposure to COVID-19
CPT/HCPCS: 36415; 87635; 99283

== ENCOUNTER 2021-08-22 11:24 | Emergency (ER) | payer MEDICAID, SELFPAY ==
[2021-08-22 12:29] VITALS: BP 125/92; PULSE 132; RESP 18; TEMP 36.8; O2SAT 99; BMI 36.2
[2021-08-22 13:37] LABS: Influenza A PCR NEGATIVE (Negative); Influenza B PCR NEGATIVE (Negative); Resp Syncy Virus RNA Qual PCR NEGATIVE (Negative); SARS COV2 PCR INHOUSE NEGATIVE (Negative)
--- NOTE | 2021-08-22 16:14 | ED_ITS ---
HPI - URI/Sore Throat General Chief Complaint: Upper Respiratory Symptoms Stated Complaint: COVID Symptoms Time Seen by Provider: 08/22/21 15:42 History of Present Illness HPI Narrative: Patient who is 34 weeks complains of vomiting and diarrhea x1 day congestion and a mild sore throat, congestion and sore throat have been 2 or 3 days vomiting and diarrhea started yesterday She is able to eat peanuts and drink some water at this time She never had abdominal pain no shortness of breath no chest pain no vaginal bleeding Related Data Home Medications Medication Instructions Recorded Confirmed cholecalciferol (vitamin D3) 25 25 mcg PO DAILY 10/28/20 03/22/21 mcg (1,000 unit) capsule metformin 500 mg tablet 500 mg PO DAILY 03/03/21 03/22/21 Previous Rx's Medication Instructions Recorded vitamin with calcium 1 tab PO DAILY #30 tab 02/02/21 no.72-iron 27 mg-folic acid 1 mg tablet ( Vitamins Plus Low Iron) ondansetron HCl 4 mg tablet 4 mg PO Q6H PRN #10 tab 08/22/21 (Zofran) Allergies Allergy/AdvReac Type Severity Reaction Status Date / Time SEAFOOD AdvReac Unknown DIFFICULTY Uncoded 03/22/21 10:25 BREATHING Review of Systems Review of Systems: Positive for some vomiting and diarrhea and nasal congest ion and sore throat Negatives are no fever no chills no dizziness no weakness no fainting no feeling faint no headache no neck pain no stiff neck is no chest pain no shortness of breath no abdominal pain no vaginal bleeding no dysuria Yes all other systems are reviewed and are negative PMFSH Past Medical History [facility] Narrative: Patient is 36 weeks Source: nursing notes reviewed Medical History Hx gestational diabetes Family History Family History Mother Diabetes mellitus Lupus Asthma Maternal Grandmother Diabetes mellitus HTN (hypertension) CAD (coronary artery disease) Maternal Grandfather No problems noted. 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 Current occupational exposures/hazards: No Gender identity: Female Physical Exam Vital Signs: Vital Signs: Last Vital Signs Temp 98.2 F 08/22/21 12:29 Pulse 132 H 08/22/21 12:29 Resp 18 08/22/21 12:29 BP 125/92 H 08/22/21 12:29 Pulse Ox 99 08/22/21 12:29 BMI result Body Mass Index 36.2 General appearance is no acute distress The pupils equal round reactive to light extraocular motions are intact, anicteric no pallor The pharynx is dry mucous membranes no redness swelling or exudate The neck is supple Chest is clear to auscultation bilateral with full symmetric equal breath sounds Heart no murmur The abdomen is gravid but nontender Extremities full range of motion x4 Course Course Course Narrative: Patient vital signs were noted to have an initial pulse of 132 With no treatment we repeated it 117 was the pulse after she drank some water Prior to discharge I have manually checked her pulse which was 107 Her tachycardia was likely related to very mild dehydration and improved quickly now that she is tolerating p.o. and able to take fluids Right now she is not nauseous and has no discomfort and is discharged with a prescription for Zofran and recommended to hydrate well She can feel the baby moving and has no discomfort MDM - URI/Sore Throat Lab Data Labs: Lab Results 08/22/21 Range/Units 12:46 Influenza Type A (PCR) NEGATIVE (Negative) Influenza Type B (PCR) NEGATIVE (Negative) RSV RNA Qual (PCR) NEGATIVE (Negative) SARS-CoV-2 RNA (RT-PCR) NEGATIVE (Negative) Discharge Plan Discharge Clinical Impression: Gastroenteritis, Acute viral syndrome, Patient Disposition: Home, Self-Care Additional Instructions: In the ER your able to drink water without throwing up We wrote a prescription for Zofran anti nausea medication to use only if needed Drink plenty of fluids Return to the ER any time for abdominal pain, uncontrolled vomiting, dehydrat ion, vaginal bleeding, any worse condition or any concerns Your COVID test was negative but the symptoms you have are a classic COVID symptoms and as you are symptomatic I would recommend 5 days off work as being symptomatic you may be infectious Prescriptions: New ondansetron HCl [Zofran] 4 mg tablet 4 mg PO Q6H PRN (Reason: nausea and vomiting) Qty: 10 RF: 0 No Action cholecalciferol (vitamin D3) 25 mcg (1,000 unit) capsule 25 mcg PO DAILY RF: 0 Vitamin Plus Low Iron 27 mg iron- 1 mg tablet 1 tab PO DAILY Qty: 30 RF: 11 metformin 500 mg tablet 500 mg PO DAILY RF: 0 Stand Alone Forms: Work/School Release Interventions: ED Discharge Assessment Last Done: 08/22/21 18:07 Discharge Date/Time: 08/22/21 18:08
--- NOTE | 2021-08-22 18:08 | PC.NURSE ---
this patient was not seen by this nurse, pt discharged by provider
== END 2021-08-22 18:08 | disposition home or self-care (01) ==
PROVIDERS: Emergency Provider Emergency Medicine Emergency Medical Services
DX: O99.613 Diseases of the digestive system complicating pregnancy, third trimester (principal); K52.9 Noninfective gastroenteritis and colitis, unspecified; O98.513 Other viral diseases complicating pregnancy, third trimester; B34.9 Viral infection, unspecified; Z3A.34 34 weeks gestation of pregnancy; Z20.822 Contact with and (suspected) exposure to COVID-19
CPT/HCPCS: 0241U; 99283

== ENCOUNTER 2023-01-23 08:58 | Emergency (ER) | payer MEDICAID, SELFPAY ==
[2023-01-23 08:59] VITALS: BP 136/88; PULSE 110; RESP 20; TEMP 36.1; O2SAT 99; BMI 36.6
[2023-01-23 09:27] LABS: Hematocrit 42.1 % (37.0-47.0); Mean Corpuscular HGB Conc 33.3 g/dl (31.0-35.0); Mean Corpuscular Hemoglobin 28.7 pg (27.0-33.0); Mean Corpuscular Volume 86.3 fL (80.0-98.0); Mean Platelet Volume 10.2 fL (9.4-12.3); Platelet Count 287 X10*3/uL (160-400); Red Blood Count 4.88 X10*6/uL (4.20-5.50); Red Cell Distribution Width 13.2 % (11.0-16.0); White Blood Count 12.7 X10*3/uL (4.8-10.8)
[2023-01-23 09:40] LABS: Alanine Aminotransferase 11 U/L (0-31); Albumin Level 4.1 g/dL (3.5-5.0); Alkaline Phosphatase 86 U/L (39-117); Anion Gap 16 (12-20); Aspartate Amino Transferase 12 U/L (5-31); Bilirubin Direct 0.1 mg/dL (0.0-0.5); Bilirubin Total 0.4 mg/dL (0.0-1.0); Blood Urea Nitrogen 12 mg/dL (9-16); Calcium 9.5 mg/dL (8.4-10.2); Carbon Dioxide 23 mmol/L (22-29); Chloride 105 mmol/L (96-108); Creatinine Clr Calc Pharmacy 128.3; Estimated Glomerular Filt Rate > 60; Glucose Random 213 mg/dL (60-115); Lipase 15 U/L (8-78); Potassium 4.6 mmol/L (3.3-5.1); Sodium 139 mmol/L (135-145); Total Protein 8.2 g/dL (6.5-8.0)
--- NOTE | 2023-01-23 09:58 | ED.NAVMDI ---
HPI - Nausea/Vomiting/Diarrhea General Chief complaint: Nausea/Vomiting/Diarrhea Stated complaint: Sore throat/N/V/D Time Seen by Provider: 01/23/23 09:43 Source: patient Limitations: no limitations History of Present Illness HPI Narrative: Patient states she developed nausea vomiting and diarrhea yesterday. She states multiple episodes of vomiting as well as watery diarrhea since then. Last episode of both was earlier this morning. She has been unable to keep p.o. down since symptoms started. She attempted to drink coffee once but vomited it back up almost immediately. No fevers or chills No history of similar issues No sick contacts of which he is aware No other recent medical illnesses. She complains of some abdominal pain. Diffuse but maximum in the right mid to lower abdomen Related Data Home Medications Medication Instructions Recorded Confirmed cholecalciferol (vitamin D3) 25 25 mcg PO DAILY 10/28/20 03/22/21 mcg (1,000 unit) capsule metformin 500 mg tablet 500 mg PO DAILY 03/03/21 03/22/21 Previous Rx's Medication Instructions Recorded vitamin with calcium 1 tab PO DAILY #30 tabs 02/02/21 no.72-iron 27 mg-folic acid 1 mg tablet ( Vitamins Plus Low Iron) ondansetron HCl 4 mg tablet 4 mg PO Q6H PRN nausea and 08/22/21 (Zofran) vomiting #10 tabs ondansetron 4 mg disintegrating 4 mg PO Q8H PRN nausea and 01/23/23 tablet vomiting #14 tabs Allergies Allergy/AdvReac Type Severity Reaction Status Date / Time SEAFOOD AdvReac Unknown DIFFICULTY Uncoded 03/22/21 10:25 BREATHING Review of Systems Constitutional: Comments: No fevers or chills. Positive general malaise Cardiovascular: Comments: No chest pain Respiratory: Comments: No respiratory symptom Gastrointestinal: Gastrointestinal: Reports as per HPI Genitourinary: Comments: No urinary symptoms Integumentary/Breasts: Comments: No rash Neurologic: Comments: No focal weakness PMFSH Past Medical History Medical History Hx gestational diabetes Family History Family History Mother Diabetes mellitus Lupus Asthma Maternal Grandmother Diabetes mellitus HTN (hypertension) CAD (coronary artery disease) Maternal Grandfather No problems noted. 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 No acute distress. Vital signs stable but mildly tachycardic at 110 beats per minute HEENT: Other: Mucosa dry Resp: Other: Clear and equal bilaterally without wheezes rales or rhonchi Cardio: Other: Regular rate and rhythm without murmurs rubs or gallops GI: Other: Soft, nondistended. Some tenderness right mid to low abdomen without guarding or rebound Skin: Other: Warm pink and dry without rash Neuro: Other: Nonfocal neuro exam Medications Administered Discontinued Medications Generic Name Dose Route Start Last Admin Trade Name Freq PRN Reason Stop Dose Admin Al Hydroxide/Mg Hydroxide 30 ml 01/23/23 09:57 01/23/23 11:19 Magnesium Hydrox/Alum Hydrox 30 Ml Oral.Susp PO 01/23/23 09:58 30 ml ONCE ONE Administration Sodium Chloride 1,000 mls @ 999 mls/hr 01/23/23 10:00 01/23/23 12:24 Ns IV 01/23/23 11:00 Infused .Q1H1M WICHO Infusion Lidocaine HCl 15 ml 01/23/23 09:57 01/23/23 11:19 Lidocaine Hcl Viscous 2 % 15 Ml Solution PO 01/23/23 09:58 15 ml ONCE ONE Administration Ondansetron HCl 4 mg 01/23/23 09:57 01/23/23 11:19 Ondansetron Hcl 4 Mg/2 Ml Vial IVPUSH 01/23/23 09:58 4 mg ONCE ONE Administration Medical Decision Making Medical Decision Making [facility] Narrative: Patient with nausea vomiting diarrhea, likely viral gastroenteritis. She does have some abdominal tenderness which could be related to episodes of vomiting. Will treat with IV fluids and IV antiemetics and reassess. 10:02. CBC shows a white count of 12.2 which is at her baseline. Remainder of CBC is normal. Chemistries show normal electrolytes, normal creatinine. Glucose is mildly elevated to 213 which is also similar to past results. LFTs and lipase are normal. 13:59. After treatment patient is feeling much better. Able to tolerate p.o. so without difficulty. Will discharge home with a prescription for Zofran Lab Data 01/23/23 09:13 01/23/23 09:13 Labs: Lab Results 01/23/23 01/23/23 01/23/23 Range/Units 09:13 09:13 10:09 WBC 12.7 H (4.8-10.8) X10*3/uL RBC 4.88 (4.20-5.50) X10*6/uL Hgb 14.0 (12.0-16.0) g/dl Hct 42.1 (37.0-47.0) % MCV 86.3 (80.0-98.0) fL MCH 28.7 (27.0-33.0) pg MCHC 33.3 (31.0-35.0) g/dl RDW 13.2 (11.0-16.0) % Plt Count 287 (160-400) X10*3/uL MPV 10.2 (9.4-12.3) fL Absolute Nucleated RBC 0.000 (0.0-0.012) X10*3/uL Nucleated RBC % (auto) 0.0 (0.0-0.2) /100WBC Sodium 139 (135-145) mmol/L Potassium 4.6 (3.3-5.1) mmol/L Chloride 105 (96-108) mmol/L Carbon Dioxide 23 (22-29) mmol/L Anion Gap 16 (12-20) BUN 12 (9-16) mg/dL Creatinine 0.73 (0.5-1.4) mg/dL Estim Creat Clear Calc 128.3 Estimated GFR > 60 Random Glucose 213 H (60-115) mg/dL Calcium 9.5 (8.4-10.2) mg/dL Total Bilirubin 0.4 (0.0-1.0) mg/dL Direct Bilirubin 0.1 (0.0-0.5) mg/dL AST 12 (5-31) U/L ALT 11 (0-31) U/L Alkaline Phosphatase 86 (39-117) U/L Total Protein 8.2 H (6.5-8.0) g/dL Albumin 4.1 (3.5-5.0) g/dL Lipase 15 (8-78) U/L Urine Color Yellow Urine Appearance Clear Urine pH 5.5 (5.0-9.0) Ur Specific [place] >= 1.030 H (1.005-1.025) Urine Protein Trace (Neg-Trace) mg/dL Urine Glucose (UA) >=1000 H (Negative) mg/dL Urine Ketones 15 (Negative) mg/dL Urine Blood Negative (Negative) Urine Nitrite Negative (Negative) Ur Leukocyte Esterase Small (1+) H (Negative) Urine RBC 3-5 H (0-2) /HPF Urine WBC 6-10 H (0-5) /HPF Ur Squamous Epith Cells 6-10 (0-2) /HPF Urine Bacteria 1+ (None Seen) Hyaline Casts 0-2 (0-2) /LPF Urine Test (NEGATIVE) 01/23/23 Range/Units 10:09 WBC (4.8-10.8) X10*3/uL RBC (4.20-5.50) X10*6/uL Hgb (12.0-16.0) g/dl Hct (37.0-47.0) % MCV (80.0-98.0) fL MCH (27.0-33.0) pg MCHC (31.0-35.0) g/dl RDW (11.0-16.0) % Plt Count (160-400) X10*3/uL MPV (9.4-12.3) fL Absolute Nucleated RBC (0.0-0.012) X10*3/uL Nucleated RBC % (auto) (0.0-0.2) /100WBC Sodium (135-145) mmol/L Potassium (3.3-5.1) mmol/L Chloride (96-108) mmol/L Carbon Dioxide (22-29) mmol/L Anion Gap (12-20) BUN (9-16) mg/dL Creatinine (0.5-1.4) mg/dL Estim Creat Clear Calc Estimated GFR Random Glucose (60-115) mg/dL Calcium (8.4-10.2) mg/dL Total Bilirubin (0.0-1.0) mg/dL Direct Bilirubin (0.0-0.5) mg/dL AST (5-31) U/L ALT (0-31) U/L Alkaline Phosphatase (39-117) U/L Total Protein (6.5-8.0) g/dL Albumin (3.5-5.0) g/dL Lipase (8-78) U/L Urine Color Urine Appearance Urine pH (5.0-9.0) Ur Specific [place] (1.005-1.025) Urine Protein (Neg-Trace) mg/dL Urine Glucose (UA) (Negative) mg/dL Urine Ketones (Negative) mg/dL Urine Blood (Negative) Urine Nitrite (Negative) Ur Leukocyte Esterase (Negative) Urine RBC (0-2) /HPF Urine WBC (0-5) /HPF Ur Squamous Epith Cells (0-2) /HPF Urine Bacteria (None Seen) Hyaline Casts (0-2) /LPF Urine Test NEGATIVE (NEGATIVE) Discharge Plan Discharge Clinical Impression: Gastroenteritis Patient Disposition: Home, Self-Care Instructions: Gastroenteritis (ED) Prescriptions: New ondansetron 4 mg tablet,disintegrating 4 mg PO Q8H PRN (Reason: nausea and vomiting) Qty: 14 0RF No Action ondansetron HCl [Zofran] 4 mg tablet 4 mg PO Q6H PRN (Reason: nausea and vomiting) Qty: 10 0RF cholecalciferol (vitamin D3) 25 mcg (1,000 unit) capsule 25 mcg PO DAILY Vitamin Plus Low Iron 27 mg iron- 1 mg tablet 1 tab PO DAILY Qty: 30 11RF metformin 500 mg tablet 500 mg PO DAILY Stand Alone Forms: Work/School Release
[2023-01-23 10:19] LABS: Appearance Urine Clear; Color Urine Yellow; Glucose Urine UA >=1000 mg/dL (Negative); Leukocyte Esterase Urine Small (1+) (Negative); Nitrite Urine Negative (Negative); PH 5.5 (5.0-9.0); Specific Gravity - Urine >= 1.030 (1.005-1.025); UMIC TRIGGER UACC YES; Urine Blood Negative (Negative); Urine Ketones 15 mg/dL (Negative); Urine Protein Trace mg/dL (Neg-Trace)
[2023-01-23 10:21] LABS: UPreg QC Valid YES; Urine Pregnancy NEGATIVE (NEGATIVE)
[2023-01-23 10:44] LABS: Bacteria Urine 1+ (None Seen); Hyaline Casts Urine 0-2 /LPF (0-2); UACC Culture Trigger YES
[2023-01-23] MEDS: Lidocaine HCl Viscous 2 % 15 ML SOLUTION PO (11:19)
[2023-01-23] MEDS: Magnesium Hydrox/Alum Hydrox 30 ML ORAL.SUSP PO (11:19)
[2023-01-23] MEDS: 0.9 % Sodium Chloride 1,000 ML 999 ML IV (11:19)
[2023-01-23] MEDS: ondansetron HCL 4 MG/2 ML VIAL IVPUSH (11:19)
== END 2023-01-23 14:07 | disposition home or self-care (01) ==
PROVIDERS: Emergency Provider Emergency Medicine; PCP Registered Nurse
DX: K52.9 Noninfective gastroenteritis and colitis, unspecified (principal); R11.2 Nausea with vomiting, unspecified
CPT/HCPCS: 36415; 80048; 80076; 81001; 81025; 83690; 85027; 87086; 96361; 96374; 99284; J2405

== ENCOUNTER 2023-02-25 12:42 | Emergency (ER) | payer MEDICAID, SELFPAY ==
[2023-02-25 12:51] VITALS: BP 128/83; PULSE 90; RESP 16; TEMP 36.3; O2SAT 99; BMI 36.4
--- NOTE | 2023-02-25 13:48 | ED.GENADULT ---
HPI - General Adult General Chief complaint: Dental/Oral Stated complaint: Dental & Ear Pain Time Seen by Provider: 02/25/23 16:40 Source: patient, RN notes reviewed and labeling specialist Mode of arrival: ambulatory Limitations: no limitations History of Present Illness HPI narrative: 27-year-old female presents for evaluation of left upper tooth pain Patient reports her pain started this morning when she woke up Pain radiates to her left ear Patient reports that she cannot chew on that side due to the pain. She reports trying [id number] benzocaine without any improvement of symptoms Denies any fevers or chills Denies any recent tooth fractures She reports that she had surgery on an adjacent tooth a couple years ago Related Data Home Medications Medication Instructions Recorded Confirmed cholecalciferol (vitamin D3) 25 25 mcg PO DAILY 10/28/20 03/22/21 mcg (1,000 unit) capsule metformin 500 mg tablet 500 mg PO DAILY 03/03/21 03/22/21 Previous Rx's Medication Instructions Recorded vitamin with calcium 1 tab PO DAILY #30 tabs 02/02/21 no.72-iron 27 mg-folic acid 1 mg tablet ( Vitamins Plus Low Iron) ondansetron HCl 4 mg tablet 4 mg PO Q6H PRN nausea and 08/22/21 (Zofran) vomiting #10 tabs ondansetron 4 mg disintegrating 4 mg PO Q8H PRN nausea and 01/23/23 tablet vomiting #14 tabs amoxicillin 500 mg capsule 500 mg PO TID #21 caps 02/25/23 naproxen 500 mg tablet 500 mg PO BID #14 tabs 02/25/23 Allergies Allergy/AdvReac Type Severity Reaction Status Date / Time SEAFOOD AdvReac Unknown DIFFICULTY Uncoded 03/22/21 10:25 BREATHING Review of Systems ENT: Reports otalgia, Reports facial pain and Reports mouth pain PMFSH Past Medical History Medical History Hx gestational diabetes Family History Family History Mother Diabetes mellitus Lupus Asthma Maternal Grandmother Diabetes mellitus HTN (hypertension) CAD (coronary artery disease) Maternal Grandfather No problems noted. Social History Social History Household Members: Children and Other Housing: Apartment Are you a primary adult live in caregiver to a significant other at home: No Do you presently have visiting nurse or other home services: No Alcohol intake: never Patient Tobacco Use Status: Former Tobacco user Cigarettes Per Day: 0 Advance Directives: No Advance Directives Information Provided: Yes Current occupational status: employed Current occupation: [employer] Current occupational exposures/hazards: No Gender identity: Female Physical Exam ED Vital Signs: Vital Signs - 24 hr 02/25/23 12:51 02/25/23 16:32 Temperature 97.3 F 97.1 F Pulse Rate 90 83 Respiratory Rate 16 16 Blood Pressure 128/83 118/70 Pulse Oximetry 99 100 Oxygen Delivery Method Room Air Room Air BMI result Body Mass Index 36.4 Const General: healthy appearing, comfortable, no acute distress, alert and awake Nutritional Appearance: well nourished Orientation/consciousness: patient oriented x3 HENMT Head: Yes normocephalic and Yes atraumatic Ears: TM normal on the left and EAC's normal (On left) Mouth: Normal oral and palatal mucosa present, lip normal and tongue normal Teeth and gingiva: caries (Tooth 14. Minimal surrounding erythema, no significant edema or abscess) and fair dentition Throat: Yes posterior oropharynx normal Eyes Eyelids: Yes eyelids normal Conjunctivae: conjunctivae normal Sclerae: sclerae normal Corneas: corneas normal Pupils: Equal, round and reactive pupils present EOM: EOMs intact bilaterally Neck Neck: Yes full ROM Resp Effort & Inspection: normal respiratory effort, able to speak in complete sentences and not labored Skin General skin exam: no rashes or lesions noted and elasticity normal Neuro General: patient oriented x3 Cranial nerves: Yes Equal, round and reactive pupils present and Yes Bilaterally intact EOM present Cognition (Neuro): normal cognition Extrem Other: Moving all extremities well without any obvious deformities Course Course Course Narrative: RME: 27 yold female presents for left upper dental molar pain. patient has no facial swelling and denies any recent trauma. Medical Decision Making Medical Decision Making MDM Narrative: 27-year-old male presents for evaluation of left upper dental pain. The pain radiates to her left ear. Her exam is consistent with a developing left dental infection, no obvious abscess. Patient was started on amoxicillin and referred to her dentist. Differential Diagnosis Dental caries Dental abscess Gingivitis Otitis media Otitis externa Facial pain Discharge Plan Discharge Clinical Impression: Acute facial pain, Dental infection Patient Disposition: Home, Self-Care Instructions: Dental Abscess (ED) Additional Instructions: Take the amoxicillin 3 times daily for the next 7 days Use naproxen up to twice daily for pain You may want to take this on a full stomach to prevent GI upset Call your dentist as soon as possible to schedule follow-up Prescriptions: New amoxicillin 500 mg capsule 500 mg PO TID Qty: 21 0RF naproxen 500 mg tablet 500 mg PO BID Qty: 14 0RF No Action ondansetron HCl [Zofran] 4 mg tablet 4 mg PO Q6H PRN (Reason: nausea and vomiting) Qty: 10 0RF ondansetron 4 mg tablet,disintegrating 4 mg PO Q8H PRN (Reason: nausea and vomiting) Qty: 14 0RF cholecalciferol (vitamin D3) 25 mcg (1,000 unit) capsule 25 mcg PO DAILY Vitamin Plus Low Iron 27 mg iron- 1 mg tablet 1 tab PO DAILY Qty: 30 11RF metformin 500 mg tablet 500 mg PO DAILY Stand Alone Forms: Work/School Release Interventions: ED Discharge Assessment Last Done: 02/25/23 17:01 Discharge Date/Time: 02/25/23 17:02
[2023-02-25 16:32] VITALS: BP 118/70; PULSE 83; RESP 16; TEMP 36.2; O2SAT 100
== END 2023-02-25 17:02 | disposition home or self-care (01) ==
PROVIDERS: Emergency Provider Internal Medicine; PCP Registered Nurse
DX: R51.9 Headache, unspecified (principal); K04.7 Periapical abscess without sinus; K08.89 Other specified disorders of teeth and supporting structures; Z79.84 Long term (current) use of oral hypoglycemic drugs; Z79.899 Other long term (current) drug therapy; Z87.891 Personal history of nicotine dependence
CPT/HCPCS: 99282; 99283

== ENCOUNTER 2023-03-14 15:47 | Emergency (ER) | payer MEDICAID, SELFPAY ==
--- NOTE | ~2023-03-14 | XR_ITS ---
EXAMINATION: XR FOOT, LEFT CLINICAL INFORMATION: First toe metatarsal pain. COMPARISON: None available. TECHNIQUE: AP, lateral, and oblique views of the left foot. FINDINGS: Soft tissues appear unremarkable. No fracture appreciated. Small Achilles calcaneal spur. Alignment is anatomic. Question very mild degenerative change of the first MTP joint. Joint spaces otherwise appear maintained. XR/XR foot LT min 3V IMPRESSION: No acute finding. Question very mild degenerative change of the first MTP joint. Small Achilles calcaneal spur.
[2023-03-14 16:03] VITALS: BP 131/65; PULSE 116; RESP 18; TEMP 36.3; O2SAT 98; BMI 36.7
--- NOTE | 2023-03-14 16:07 | ED.GENADULT ---
HPI - General Adult General Chief complaint: Extremity Injury, Lower Stated complaint: left foot pain Time Seen by Provider: 03/14/23 17:53 Source: patient Mode of arrival: ambulatory Limitations: no limitations History of Present Illness HPI narrative: 27-year-old female presenting to the ER with complaints of left great toe pain after a Pallet fell onto her foot/great toe while she was at work on Saturday. She reports since then she has been trying to bear all her weight on her calcaneus aspect of the foot and now she is having pain to that area. She denies an actual fall, paresthesias, erythema, fevers or chills, weakness or any other symptoms complaints or concerns at this time. complaint: left great toe pain Onset (ago): day(s) (2) Radiation: non-radiation Severity: moderate Quality: aching Pain Consistency: constant Relieving factors: none Exacerbating factors: movement ( Palpation and ambulation/weight-bearing) Associated symptoms: denies other symptoms Treatments prior to arrival: none Related Data Home Medications Medication Instructions Recorded Confirmed cholecalciferol (vitamin D3) 25 25 mcg PO DAILY 10/28/20 03/22/21 mcg (1,000 unit) capsule metformin 500 mg tablet 500 mg PO DAILY 03/03/21 03/22/21 Previous Rx's Medication Instructions Recorded vitamin with calcium 1 tab PO DAILY #30 tabs 02/02/21 no.72-iron 27 mg-folic acid 1 mg tablet ( Vitamins Plus Low Iron) ondansetron HCl 4 mg tablet 4 mg PO Q6H PRN nausea and 08/22/21 (Zofran) vomiting #10 tabs ondansetron 4 mg disintegrating 4 mg PO Q8H PRN nausea and 01/23/23 tablet vomiting #14 tabs amoxicillin 500 mg capsule 500 mg PO TID #21 caps 02/25/23 naproxen 500 mg tablet 500 mg PO BID #14 tabs 02/25/23 ibuprofen 800 mg tablet 800 mg PO Q8H PRN pain #14 tabs 03/14/23 tramadol 50 mg tablet 50 mg PO Q8H PRN pain #14 tabs 03/14/23 Allergies Allergy/AdvReac Type Severity Reaction Status Date / Time SEAFOOD AdvReac Unknown DIFFICULTY Uncoded 03/22/21 10:25 BREATHING Review of Systems Review of Systems: Constitutional : No Weight loss, No Fever, No Chills, No Night Sweats, No Fatigue, No Malaise ENT/Mouth : No Hearing loss, No Ear Pain, No Nasal Congestion, No Sinus Pain, No Hoarseness, No sore throat, No Rhinorrhea, No Swallowing Difficulty Eyes: No Eye Pain, No Swelling, No Redness, No Foreign Body, No Discharge, No Vision Changes Cardiovascular : No Chest Pain, No SOB, No Dyspnea on Exertion, No Orthopnea, No Edema, No Palpitations Respiratory : No Cough, No Sputum, No Wheezing, No Smoke Exposure, No Dyspnea Gastrointestinal : No Nausea, No Vomiting, No Diarrhea, No Constipation, No abdominal Pain, No Hematochezia, No Melena Genitourinary : no irregular bleeding, No Dysuria, No Urinary Frequency, No Hematuria, No Urinary Incontinence, No Urgency, No Flank Pain, No Urinary Flow Changes, No Hesitancy Musculoskeletal : + left great toe joint pain, No Myalgias, No Joint Swelling Skin : No Skin Lesions, No rash Neuro : No Weakness, No Numbness, No Paresthesias, No Loss of Consciousness, No Dizziness, No Headache Psych : No Anxiety/Panic, No Depression, No SI/HI/AH/VH, No Social Issues, Heme/Lymph: No Bruising, No Bleeding,No Lymphadenopathy Endocrine : No Polyuria, No Polydipsia, No Temperature Intolerance Yes all other systems are reviewed and are negative [facility] Past Medical History Attestation statement: The following information was validated with the patient. Source: old records reviewed and nursing notes reviewed Medical History Hx gestational diabetes Family History Family History Mother Diabetes mellitus Lupus Asthma Maternal Grandmother Diabetes mellitus HTN (hypertension) CAD (coronary artery disease) Maternal Grandfather No problems noted. Social History Social History Household Members: Children and Other Housing: Apartment Are you a primary managed care manager to a significant other at home: No Do you presently have visiting nurse or other home services: No Alcohol intake: never Patient Tobacco Use Status: Former Tobacco user Cigarettes Per Day: 0 Advance Directives: No Advance Directives Information Provided: Yes Current occupational status: employed Current occupation: [employer]OR Current occupational exposures/hazards: No Gender identity: Female Physical Exam ED Vital Signs: Vital Signs - 24 hr 03/14/23 16:03 Temperature 97.3 F Pulse Rate 116 H Respiratory Rate 18 Blood Pressure 131/65 Pulse Oximetry 98 Oxygen Delivery Method Room Air BMI result Body Mass Index 36.7 vital signs have been reviewed as normal and appeared to be correct. Blood pressure normal. Heart rate 116. Respiration rate normal. Temperature normal. Oxygen saturation normal. Appearance: Alert. Oriented X3. No acute distress. Head: Normal external exam. Normocephalic. Atraumatic. Eyes: PERRLA. EOMI. Conjunctiva and sclera normal. Eyelids normal. ENT: Uvula midline. Moist mucous membranes. No lesions/ulcerations or masses noted on the tongue. Normal voice. No trismus noted. No drooling noted. No muffled voice noted. Neck: Normal inspection. Neck supple. FROM. No adenopathy. No meningeal signs. CVS: Normal heart rate and rhythm. Heart sound normal. Pulses normal throughout. No murmurs/rales/gallops. Respiratory: No respiratory distress. Painless inspiration. Breath sounds normal. No wheezes/rales/rhonchi noted. Chest nontender. No accessory muscle usage noted or decreased air movement noted. No signs of trauma. Abdomen: Soft and nontender. Bowel sounds normal in all 4 quadrants. No distention noted. No organomegaly noted. No visible injury noted. Back: No CVA tenderness. Full range of motion noted. Nontender. No signs of trauma. Patient neuro intact bilaterally and distally on all 4 extremities. Patient's reflexes intact bilaterally and distally on all 4 extremities. No rashes/lesion/induration/fluctuance or signs of infection noted. Skin: Skin warm and dry. Normal skin color. Normal skin turgor. No rashes/lesions/lacerations noted. Extremities: to left great toe patient has tenderness palpation overlying the distal aspect of the left great toe there is some ecchymosis noted although no obvious ligamentous or tendon injury. Not consistent with septic joint. No erythema or streaking. No subungual hematoma. Otherwise all other Extremities exhibit normal range of motion and nontender. Neuro: Oriented X 3. No motor deficit. No sensory deficit. Reflexes normal. Normal steady gait. No focal neuro deficits noted. CN's II-XII intact bilaterally? Vascular: + radial pulses/+ 2 distal pedal pulses/+2 dorsalis pedis b/l. Normal cap refill. No cyanosis noted to upper extremity nails and lower extremity toes nails. Course Course Course Narrative: This is an RME: Additional HPI, ROS, PE not included below will be deferred to primary provider. This is a [id number]-female presenting to the ER with complaints of left great toe pain x 2 days. Pt states that a pallet fell onto her left great toe. Pain worsens with ambulation. +Subugual hematoma and TTP over left great toe and metatarsal. Plan: Xray left great toe ordered Reevaluation(s) Reevaluation #1: patient able to bear weight on affected foot / toe. Patient most likely sprain. X-ray was obtained and negative for fracture. Not consistent with 5th metatarsal fracture. Not consistent with Achilles rupture. Not a Maisonneuve fx. No evidence of vascular injury. Therefore at this time will place and a ortho shoe provide crutches treat symptomatically and instructed follow-up with PCP/ [facility] and Orthopedics in the persist for longer than 2-3 weeks. Patient understands agrees with this plan. Time: 18:11 Medical Decision Making Medical Decision Making MDM Narrative: see course Differential Diagnosis Differential Diagnoses: The differential diagnosis associated with the presentation includes see course Independent Interpretation I performed an independent interpretation of an: Plain X-Ray ( X-ray of left foot reviewed by myself agreeable with radiologist reports no acute findings only chronic changes) Radiology Impression Discussion of test interpretation with radiology: I have reviewed the radiologist's reading. Radiologist Impression: FINDINGS: Soft tissues appear unremarkable. No fracture appreciated. Small Achilles calcaneal spur. Alignment is anatomic. Question very mild degenerative change of the first MTP joint. Joint spaces otherwise appear maintained.? XR/XR foot LT min 3V IMPRESSION: ? No acute finding. ? Question very mild degenerative change of the first MTP joint. ? Small Achilles calcaneal spur. External Record Review External record reviewed: Inpatient record, Office record, Outpatient record, Prior outpatient labs, Prior outpatient radiology, Primary care record and Outside ED record all prior labs/ imaging /EKG and notes that are accessible in our system reviewed by myself Prescription Management I considered prescription management with: Pain Medication Social Determinants Patient?s care significantly limited by Social Determinants of Health including: Low income and Other Social Determinant of Health Discharge Plan Discharge Clinical Impression: Sprain of great toe of left foot, Work related injury Patient Disposition: Home, Self-Care Instructions: Foot Sprain (ED) Prescriptions: New ibuprofen 800 mg tablet 800 mg PO Q8H PRN (Reason: pain) Qty: 14 0RF tramadol 50 mg tablet 50 mg PO Q8H PRN (Reason: pain) Qty: 14 0RF Rx Instructions: May partially fill upon patient request No Action ondansetron HCl [Zofran] 4 mg tablet 4 mg PO Q6H PRN (Reason: nausea and vomiting) Qty: 10 0RF ondansetron 4 mg tablet,disintegrating 4 mg PO Q8H PRN (Reason: nausea and vomiting) Qty: 14 0RF amoxicillin 500 mg capsule 500 mg PO TID Qty: 21 0RF naproxen 500 mg tablet 500 mg PO BID Qty: 14 0RF cholecalciferol (vitamin D3) 25 mcg (1,000 unit) capsule 25 mcg PO DAILY Vitamin Plus Low Iron 27 mg iron- 1 mg tablet 1 tab PO DAILY Qty: 30 11RF metformin 500 mg tablet 500 mg PO DAILY Referrals: [facility] [Provider Group] ( call to make a follow-up appointment within the next few weeks if symptoms persist) [facility] [Provider Group] ( follow-up with [facility] for your job) Lea Santiago FNP [Primary Care Provider] - 2 days Stand Alone Forms: Work/School Release
== END 2023-03-14 18:22 | disposition home or self-care (01) ==
PROVIDERS: Emergency Provider Emergency Medicine; PCP Registered Nurse
DX: S93.502A Unspecified sprain of left great toe, initial encounter (principal); W20.8XXA Other cause of strike by thrown, projected or falling object, initial encounter; Z87.891 Personal history of nicotine dependence; Y93.89 Activity, other specified; Y92.512 Supermarket, store or market as the place of occurrence of the external cause; Y99.0 Civilian activity done for income or pay
CPT/HCPCS: 73630; 99282; 99283

== ENCOUNTER 2023-04-09 03:07 | Emergency (ER) | payer MEDICAID, SELFPAY ==
--- NOTE | ~2023-04-09 | US_ITS ---
EXAMINATION: US ABDOMEN LIMITED CLINICAL INFORMATION: Right upper quadrant pain. Question cholecystitis.. COMPARISON: 04/15/2020 TECHNIQUE: Real-time imaging of the right upper quadrant abdominal viscera. FINDINGS: PANCREAS: Not evaluated. LIVER: Limited evaluation showing hepatic steatosis with focal fatty sparing along the gallbladder fossa. GALLBLADDER: Normal. The gallbladder is physiologically distended without evidence of stones, sludge, polyps, wall thickening or pericholecystic fluid. COMMON BILE DUCT: Normal in caliber measuring 0.3 cm in diameter. RIGHT KIDNEY: Not evaluated on this study. FREE FLUID: None. US/US abdomen limited IMPRESSION: 1. No evidence of cholelithiasis or cholecystitis. 2. Hepatic steatosis.
[2023-04-09 03:26] VITALS: BP 108/78; PULSE 109; RESP 18; TEMP 36.4; O2SAT 97; BMI 36.6
[2023-04-09 04:03] LABS: MANUAL DIFF FLAG NO
[2023-04-09 04:04] LABS: Basophils Percent Auto 0.2 % (0-2); Eosinophils Absolute Auto 0.3 X10*3/uL (0.0-0.4); Eosinophils Percent Auto 2.3 % (0-4); Hematocrit 40.4 % (37.0-47.0); Hemoglobin 13.6 g/dl (12.0-16.0); Imm Gran Abs Auto 0.05 X10*3/uL (0.00-0.03); Imm Gran Pct Auto 0.4 % (0.0-0.4); Lymphocytes Absolute Auto 2.8 X10*3/uL (1.2-4.9); Lymphocytes Percent Auto 24.5 % (20-40); Mean Corpuscular HGB Conc 33.7 g/dl (31.0-35.0); Mean Corpuscular Hemoglobin 28.5 pg (27.0-33.0); Mean Corpuscular Volume 84.5 fL (80.0-98.0); Mean Platelet Volume 10.1 fL (9.4-12.3); Monocytes Absolute Auto 0.7 X10*3/uL (0.1-1.2); Monocytes Percent Auto 6.1 % (2-11); Neutrophils Absolute Auto 7.7 x10*3/uL (2.0-8.3); Neutrophils Percent Auto 66.5 % (45-73); Platelet Count 293 X10*3/uL (160-400); Red Blood Count 4.78 X10*6/uL (4.20-5.50); White Blood Count 11.5 X10*3/uL (4.8-10.8)
[2023-04-09 04:18] LABS: Alanine Aminotransferase 12 U/L (0-31); Alkaline Phosphatase 79 U/L (39-117); Anion Gap 14 (12-20); Aspartate Amino Transferase 9 U/L (5-31); Bilirubin Direct < 0.2 mg/dL (0.0-0.5); Bilirubin Total 0.2 mg/dL (0.0-1.0); Blood Urea Nitrogen 13 mg/dL (9-16); Calcium 10.2 mg/dL (8.4-10.2); Carbon Dioxide 20 mmol/L (22-29); Chloride 108 mmol/L (96-108); Creatinine Clr Calc Pharmacy 118.5; Estimated Glomerular Filt Rate > 60; Glucose Random 224 mg/dL (60-115); Lipase 19 U/L (8-78); Sodium 138 mmol/L (135-145)
--- NOTE | 2023-04-09 04:45 | ED.ABDPAIN ---
HPI - Abdominal Pain General Chief Complaint: Abdominal Pain Stated Complaint: Abdominal pain, vomiting Time Seen by Provider: 04/09/23 04:45 Source: patient Mode of arrival: ambulatory Limitations: no limitations History of Present Illness HPI narrative: Patient with no significant abdominal complaints in the past had watery stool yesterday and today since 02:00 notice epigastric pain with nausea vomiting vomited about 8 times prior to arrival no fever no chills denies any urinary symptoms never had similar pain the past no history of kidney stone gallstones denies any recent travel Related Data Home Medications Medication Instructions Recorded Confirmed cholecalciferol (vitamin D3) 25 25 mcg PO DAILY 10/28/20 03/22/21 mcg (1,000 unit) capsule metformin 500 mg tablet 500 mg PO DAILY 03/03/21 03/22/21 Previous Rx's Medication Instructions Recorded vitamin with calcium 1 tab PO DAILY #30 tabs 02/02/21 no.72-iron 27 mg-folic acid 1 mg tablet ( Vitamins Plus Low Iron) ondansetron HCl 4 mg tablet 4 mg PO Q6H PRN nausea and 08/22/21 (Zofran) vomiting #10 tabs ondansetron 4 mg disintegrating 4 mg PO Q8H PRN nausea and 01/23/23 tablet vomiting #14 tabs amoxicillin 500 mg capsule 500 mg PO TID #21 caps 02/25/23 naproxen 500 mg tablet 500 mg PO BID #14 tabs 02/25/23 ibuprofen 800 mg tablet 800 mg PO Q8H PRN pain #14 tabs 03/14/23 tramadol 50 mg tablet 50 mg PO Q8H PRN pain #14 tabs 03/14/23 ondansetron 4 mg disintegrating 4 mg PO Q6-8H PRN nausea and 04/09/23 tablet vomiting #7 tabs Allergies Allergy/AdvReac Type Severity Reaction Status Date / Time SEAFOOD AdvReac Unknown DIFFICULTY Uncoded 03/22/21 10:25 BREATHING Review of Systems Review of Systems Yes all other systems are reviewed and are negative [facility] Past Medical History Medical History Hx gestational diabetes Family History Family History Mother Diabetes mellitus Lupus Asthma Maternal Grandmother Diabetes mellitus HTN (hypertension) CAD (coronary artery disease) Maternal Grandfather No problems noted. 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 Oriented X3. No acute distress. Eyes: PERRLA, No Nystagmus ENT: Pharynx normal. Oral Mucosa moist Neck: Normal inspection. Neck supple. CVS: Normal heart rate and rhythm. Pulses normal. Respiratory: No respiratory distress. Equal air entry bilateral, no wheezing/rales/rhonchi Abdomen: Soft , tenderness right upper quadrant epigastric area. Bowel sounds are present, no mass palpable, no CVA tenderness Skin: Skin warm and dry. Normal skin color. Normal skin turgor. Extremities: No lower extremity edema. No calf tenderness Neuro: Oriented X 3. Medical Decision Making Medical Decision Making [facility] Narrative: Patient with Gastroenteritis with upper abdominal pain ultrasound negative for cholelithiasis/cholecystitis patient taking p.o. fluids will check the UA plan to DC patient home Differential Diagnosis Differential Diagnoses: The differential diagnosis associated with the presentation includes Gastroenteritis/cholecystitis/cholelithiasis/UTI Lab Data [facility] Lab Attestation statement: I reviewed the patient's lab results. 04/09/23 04:00 04/09/23 04:00 Labs: Lab Results 04/09/23 04/09/23 Range/Units 04:00 04:00 WBC 11.5 H (4.8-10.8) X10*3/uL RBC 4.78 (4.20-5.50) X10*6/uL Hgb 13.6 (12.0-16.0) g/dl Hct 40.4 (37.0-47.0) % MCV 84.5 (80.0-98.0) fL MCH 28.5 (27.0-33.0) pg MCHC 33.7 (31.0-35.0) g/dl RDW 13.0 (11.0-16.0) % Plt Count 293 (160-400) X10*3/uL MPV 10.1 (9.4-12.3) fL Immature Gran % (Auto) 0.4 (0.0-0.4) % Neut % (Auto) 66.5 (45-73) % Lymph % (Auto) 24.5 (20-40) % [place] % (Auto) 6.1 (2-11) % Eos % (Auto) 2.3 (0-4) % Baso % (Auto) 0.2 (0-2) % Lymph # (Auto) 2.8 (1.2-4.9) X10*3/uL [place] # (Auto) 0.7 (0.1-1.2) X10*3/uL Eos # (Auto) 0.3 (0.0-0.4) X10*3/uL Baso # (Auto) 0.0 (0.0-0.2) X10*3/uL Abs Immat Gran (auto) 0.05 H (0.00-0.03) X10*3/uL Absolute Neuts (auto) 7.7 (2.0-8.3) x10*3/uL Absolute Nucleated RBC 0.000 (0.0-0.012) X10*3/uL Nucleated RBC % (auto) 0.0 (0.0-0.2) /100WBC Sodium 138 (135-145) mmol/L Potassium 4.0 (3.3-5.1) mmol/L Chloride 108 (96-108) mmol/L Carbon Dioxide 20 L (22-29) mmol/L Anion Gap 14 (12-20) BUN 13 (9-16) mg/dL Creatinine 0.79 (0.5-1.4) mg/dL Estim Creat Clear Calc 118.5 Estimated GFR > 60 Random Glucose 224 H (60-115) mg/dL Calcium 10.2 D (8.4-10.2) mg/dL Total Bilirubin 0.2 (0.0-1.0) mg/dL Direct Bilirubin < 0.2 (0.0-0.5) mg/dL AST 9 (5-31) U/L ALT 12 (0-31) U/L Alkaline Phosphatase 79 (39-117) U/L Total Protein 8.0 (6.5-8.0) g/dL Albumin 4.0 (3.5-5.0) g/dL Lipase 19 (8-78) U/L Medications Administered Discontinued Medications Generic Name Dose Route Start Last Admin Trade Name Freq PRN Reason Stop Dose Admin Famotidine 20 mg 04/09/23 04:55 04/09/23 05:02 Famotidine/Pf 20 Mg/2 Ml Vial IVPUSH 04/09/23 04:56 20 mg ONCE ONE Administration Sodium Chloride 1,000 mls @ 999 mls/hr 04/09/23 04:50 04/09/23 05:02 Ns IV 04/09/23 05:50 999 mls/hr .Q1H1M ONE Administration Ketorolac Tromethamine 30 mg 04/09/23 04:50 04/09/23 05:01 Ketorolac Tromethamine 30 Mg/Ml Vial IVPUSH 04/09/23 04:51 30 mg ONCE ONE Administration Ondansetron HCl 4 mg 04/09/23 04:50 04/09/23 05:02 Ondansetron Hcl 4 Mg/2 Ml Vial IVPUSH 04/09/23 04:51 4 mg ONCE ONE Administration Discharge Plan Discharge Clinical Impression: Gastroenteritis Patient Disposition: Home, Self-Care Instructions: Gastroenteritis (ED) Prescriptions: New ondansetron 4 mg tablet,disintegrating 4 mg PO Q6-8H PRN (Reason: nausea and vomiting) Qty: 7 0RF No Action ondansetron HCl [Zofran] 4 mg tablet 4 mg PO Q6H PRN (Reason: nausea and vomiting) Qty: 10 0RF ondansetron 4 mg tablet,disintegrating 4 mg PO Q8H PRN (Reason: nausea and vomiting) Qty: 14 0RF amoxicillin 500 mg capsule 500 mg PO TID Qty: 21 0RF naproxen 500 mg tablet 500 mg PO BID Qty: 14 0RF ibuprofen 800 mg tablet 800 mg PO Q8H PRN (Reason: pain) Qty: 14 0RF tramadol 50 mg tablet 50 mg PO Q8H PRN (Reason: pain) Qty: 14 0RF Rx Instructions: May partially fill upon patient request cholecalciferol (vitamin D3) 25 mcg (1,000 unit) capsule 25 mcg PO DAILY Vitamin Plus Low Iron 27 mg iron- 1 mg tablet 1 tab PO DAILY Qty: 30 11RF metformin 500 mg tablet 500 mg PO DAILY
[2023-04-09] MEDS: Ketorolac Tromethamine 30 MG/ML VIAL IVPUSH (05:01)
[2023-04-09] MEDS: Famotidine/PF 20 MG/2 ML VIAL IVPUSH (05:02)
[2023-04-09] MEDS: 0.9 % Sodium Chloride 1,000 ML 999 ML IV (05:02)
[2023-04-09] MEDS: ondansetron HCL 4 MG/2 ML VIAL IVPUSH (05:02)
[2023-04-09 06:36] VITALS: BP 94/57; PULSE 88; RESP 16; TEMP 36.9; O2SAT 98
--- NOTE | 2023-04-09 06:45 | PC.NURSE ---
this rn placed 20g iv in R Ac. pt medicated according to mar
[2023-04-09 08:08] VITALS: BP 113/64; PULSE 96; RESP 18; O2SAT 95
[2023-04-09 08:26] LABS: Appearance Urine Cloudy; Color Urine Yellow; Glucose Urine UA 500 mg/dL (Negative); Leukocyte Esterase Urine Trace (Negative); Nitrite Urine Negative (Negative); PH 5.5 (5.0-9.0); Specific Gravity - Urine >= 1.030 (1.005-1.025); UMIC TRIGGER UACC YES; Urine Blood Negative (Negative); Urine Ketones Trace mg/dL (Negative); Urine Protein 30 (1+) mg/dL (Neg-Trace)
[2023-04-09 08:27] LABS: Bacteria Urine 3+ (None Seen); UACC Culture Trigger YES; UPreg QC Valid YES; Urine Pregnancy NEGATIVE (NEGATIVE)
[2023-04-09 10:14] VITALS: BP 113/62; PULSE 92; RESP 17; O2SAT 99
[2023-04-09 12:08] VITALS: BP 117/63; PULSE 92; RESP 18; O2SAT 100
[2023-04-09] MEDS: Nitrofurantoin Monohyd/M-Cryst 100 MG CAPSULE PO (12:09)
--- NOTE | 2023-04-09 13:04 | PC.NURSE ---
denies si/hi/ah/vh. aox4. calm coopeartive. VSS. resting. talks w/o distress.
== END 2023-04-09 12:19 | disposition home or self-care (01) ==
PROVIDERS: Emergency Provider Internal Medicine; PCP Registered Nurse
DX: K52.9 Noninfective gastroenteritis and colitis, unspecified (principal); N39.0 Urinary tract infection, site not specified; B95.1 Streptococcus, group B, as the cause of diseases classified elsewhere; R10.13 Epigastric pain; E11.9 Type 2 diabetes mellitus without complications; Z79.84 Long term (current) use of oral hypoglycemic drugs; Z79.899 Other long term (current) drug therapy
CPT/HCPCS: 36415; 76705; 80048; 80076; 81001; 81025; 83690; 85025; 87086; 87147; 96361; 96374; 96375; 99285; J1885; J2405

== ENCOUNTER 2023-08-06 11:06 | Outpatient (AMB) | payer MEDICAID, SELFPAY ==
[2023-08-06 11:08] VITALS: BP 110/76; PULSE 111; BMI 34.4
--- NOTE | 2023-08-06 11:08 | A.OFFVIS_ITS ---
Intake Vital Signs 08/06/23 11:08 Height 5 ft 4 in Weight 200 lb 2.876 oz BMI 34.4 BP 110/76 Blood Pressure Location Lt brachial Position Sitting Pulse 111 H Intake Visit Reasons: NPV/Tachycardia/Lea Gilbert Intake Note: NPV w/ EKG Civil Engineering Director Required: Yes Civil Engineering Director Language: Policy And Planning Manager Name: [id number] Erby Accompanied by: Daughter Allergies SEAFOOD Adverse Reaction (Unknown, Uncoded 08/06/23 11:10) DIFFICULTY BREATHING Medication List - Last Reconciled 08/06/23 by Montez Douglas MD dulaglutide (Trulicity) mg subcut QWEEK ibuprofen 800 mg PO Q8H PRN naproxen 500 mg PO BID HPI HPI Comments History of Present Illness Details Yao is here for consultation regarding tachycardia. patient does not have any history of coronary disease myocardial infarction or cardiomyopathy or in fact any other cardiac issues. It seems that she developed gestational diabetes and now she has type 2 diabetes. She is on Trulicity. She does feel some sensations of rapid heartbeat off and on and she has felt this way for the last couple of years or so. Otherwise, no clear-cut chest pains. Otherwise, generally feeling okay. [facility] Medical History (Updated 08/06/23 @ 11:24 by Montez Douglas MD) Hx gestational diabetes Surgical History (Updated 08/06/23 @ 11:12 by Ese Ardon) Hx of tubal ligation Family History Mother Diabetes mellitus Lupus Asthma Maternal Grandmother Diabetes mellitus HTN (hypertension) CAD (coronary artery disease) Maternal Grandfather No problems noted. 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 Current occupational exposures/hazards: No Gender identity: Female Female Reproductive History Menstrual Age of Menarche: 10 Review of Systems Const Denies chills, Denies daytime sleepiness, Denies fatigue, Denies fever(s), Denies frequent falls, Denies night sweats, Denies snoring, Denies weakness, Denies weight gain and Denies weight loss Eyes Denies loss of vision ENT Denies dizziness and Denies hearing loss Card Denies chest pain, Denies chest pain with activity, Denies syncope, Denies rapid heart rate, Denies edema, Denies claudication, Denies leg edema, Denies lightheadedness, Denies dyspnea on exertion and Denies orthopnea Resp Denies cough, Denies excessive phlegm production, Denies dyspnea on exertion, Denies snoring and Denies wheezing GI Denies abdominal pain, Denies hematochezia, Denies change in bowel habits, Denies change in stool character, Denies heartburn, Denies nausea and Denies vomiting Denies hematuria, Denies urinary frequency and Denies dysuria Musc Denies arthralgias, Denies muscle weakness, Denies numbness and Denies tingling Skin/Breast Denies nail changes and Denies rash Neuro Denies Abnormal speech present, Denies dizziness, Denies syncope, Denies frequent falls, Denies loss of vision, Denies memory loss, Denies numbness, Denies tingling and Denies weakness Psych Denies depression and Denies memory loss Endo Denies fatigue Aller/Immun Denies wheezing Physical Exam Vital Signs: Last Vital Signs Pulse 111 H 08/06/23 11:08 BP 110/76 08/06/23 11:08 BMI result Body Mass Index 34.4 Const General: comfortable and no acute distress Orientation/consciousness: patient oriented x3 HEENT Other: Unremarkable Head: Yes normal to inspection Neck Neck: Yes normal visual inspection Chest Chest palpation & inspection: normal inspection of the chest Resp Auscultation: clear to auscultation bilaterally Cardio Palpation: normal PMI Heart sounds: S1 normal heart sound present, S2 normal heart sound present, no gallops, no murmurs and no rubs GI Palpation (GI): Soft to palpation Back/Spine/Pelvis Other: unremarkable Skin General skin exam: no rashes or lesions noted Neuro General: patient oriented x3 Speech: No Abnormal speech present Extrem General: Yes normal to inspection Psych Mental Status: mental status grossly normal Office Procedures EKG Details: EKG with sinus tachycardia at 111/Min; cannot exclude old anterior infarct but could be from body habitus; [place] [id number], Complete Assessment & Plan Assessment & Plan (1) Sinus tachycardia by electrocardiogram: Code(s): R00.0 - Tachycardia, unspecified (2) Type 2 diabetes mellitus with unspecified complications: Code(s): E11.8 - Type 2 diabetes mellitus with unspecified complications Plan EKG shows sinus tachycardia. Heart rate recorded in PCP's office was also high at 110/Min. She seems to have chronic sinus tachycardia. Unclear etiology. Needs evaluation for cardiomyopathy. Will also do 24 hour Holter for average heart rates. Follow-up after the above. Orders: Orders CA echo transthoracic complete Today R00.0 - Tachycardia, unspecified ECG holter monitor 48 hour Today R00.0 - Tachycardia, unspecified, R00.2 - Palpitations Coding Level of Care Code New Pt Level 3 (08166) Diagnoses Sinus tachycardia by electrocardiogram R00.0 Type 2 diabetes mellitus with unspecified complications E11.8 CPT Codes EKG - CPT: 47249-[id number], Complete ([id number])
== END 2023-08-06 11:59 | disposition home or self-care (01) ==
PROVIDERS: PCP Registered Nurse; Visit Provider Internal Medicine
DX: R00.0 Tachycardia, unspecified (principal); E11.8 Type 2 diabetes mellitus with unspecified complications
CPT/HCPCS: 93010; 99203

== ENCOUNTER → 2023-08-06 11:06 | Outpatient (BNVA) | payer MEDICAID, SELFPAY | PROVIDERS: PCP Registered Nurse; Visit Provider Internal Medicine | DX: R00.0 Tachycardia, unspecified (principal); E11.8 Type 2 diabetes mellitus with unspecified complications | CPT/HCPCS: 93005; 99202 ==

== ENCOUNTER 2023-08-07 15:43 | Outpatient (REF) | payer MEDICAID, SELFPAY ==
--- NOTE | 2023-08-07 16:35 | MHC.AU.HA1 ---
Hearing Aid Evaluation Date of Visit: 08/07/23 Historical Information: Description of Hearing: Mild to moderate sensorineural hearing loss, bilaterally. Hearing Aid Prescription: Based on the individual?s shared listening needs, communication environments, dexterity, desire for connectivity, and personal preferences, the following prescription for amplification has been made: Right ear: Make, Model, Color: Oticon Real 2 miniRITE R Battery Size: Rechargeable Visual Specialist/Slim Tube: #1 85g Type of Earmold/Dome/CShell/SlimTip: 6mm dbl young Left ear: Left ear prescription to be same as Right Hearing Aid above: Make, Model, Color: Oticon Real 2 miniRITE R Battery Size: Rechargeable Visual Specialist/Slim Tube: #1 85g Type of Earmold/Dome/CShell/SlimTip: 6mm dbl young Plan of Care: Patient wishes to purchase hearing aids as prescribed Action Taken/Action Needed: Medical Clearance to be requested from PCP/ENT Comments: Yao reports longstanding hearing loss that she believes has gotten worse recently. She has a significant family history of hearing loss including her daughter, mother, and grandmother. We discussed a possible ENT consult to gain more insight into why her hearing might be changing at a young age; she plans to discuss this with her PCP at an appointment later this week. She states she has tried her mothers hearing aids and was impressed by how well she could hear while wearing them. Yao gets frustrated by having to ask people to repeat themselves to the point that they raise their voice, and struggles to hear people if they are not facing her directly. We discussed hearing aid styles and options, and she selected Oticon Real 2 miniRITE R in chroma beige. She is looking forward to pairing them with her iPhone. Primary Diagnosis: H90.3 Bilateral Sensorineural Hearing Loss Signature: Provider: Will Willard, CCC-A
--- NOTE | 2023-08-07 16:43 | MHC.AU.MED ---
Medical Clearance for Hearing Instrumentation Date: 08/07/23 Patient Name: Yao Ugarte Date of : 1995 Referring Provider: GENE Huntley We have seen your patient on 08/07/23 and have determined that they are a candidate for amplification (See accompanying report). Specifically, they would benefit from: Hearing aid use in both ears There is a statute that addresses Medical Evaluation Requirements prior to fitting a patient with a hearing aid. According to [place] statute 265 CMR:6.03(1), (a) General. Except as provided in 265 CMR 6.03(1)(b), a trap setter shall not sell a hearing aid unless the prospective user has presented to the trap setter a written statement signed by a licensed physician that states that the patient's hearing loss has been medically evaluated and the patient may be considered a candidate for a hearing aid. The medical evaluation must have taken place within the preceding six months. Please note: Due to the [place] Statute referenced above, we cannot accept a signature other than that of a licensed physician. TRENCH DIGGING MACHINE OPERATOR and PA signatures cannot be accepted. I am in agreement with the above recommendation. There is no medical contraindication for hearing instrumentation. Physician Signature Date Physician Name (Printed)
== END 2023-08-07 15:44 | disposition home or self-care (01) ==
LOC: HO.SH 15:43
PROVIDERS: Visit Provider Registered Nurse
DX: Z01.118 Encounter for examination of ears and hearing with other abnormal findings (principal); Z46.1 Encounter for fitting and adjustment of hearing aid; H90.3 Sensorineural hearing loss, bilateral
CPT/HCPCS: 92557; 92591

== ENCOUNTER 2023-08-09 | Outpatient (REF) | payer MEDICAID, SELFPAY ==
[2023-08-12 11:24] LABS: C. trachomatis RNA TMA NOT DETECTED (NOT DETECTED); Candida glabrata RNA NOT DETECTED (NOT DETECTED); Candida species RNA NOT DETECTED (NOT DETECTED); N. gonorrhoeae RNA TMA NOT DETECTED (NOT DETECTED); Trichomonas vaginalis RNA NOT DETECTED (NOT DETECTED)
== END 2023-08-09 00:01 | disposition home or self-care (01) ==
LOC: HO.HHCLNP
PROVIDERS: Visit Provider Registered Nurse
DX: Z01.419 Encounter for gynecological examination (general) (routine) without abnormal findings (principal)
CPT/HCPCS: 81513; 87481; 87491; 87591; 87661; 88142

== ENCOUNTER → 2023-08-23 11:05 | Outpatient (REF) | payer MEDICAID, SELFPAY ==
--- NOTE | 2023-08-23 11:07 | HM_ITS ---
Conclusion: 1. Patient was monitored for total of 2 days 2. Baseline was normal sinus rhythm with average heart of 101 beats per minute 3. No significant pauses noted 4. Frequent sinus tachycardia noted with 43% of time heart rate about 100 beats per minute 5. Patient reported to events of heart racing 1 correlated with sinus rhythm the other with sinus tachycardia. MTDD
--- NOTE | 2023-08-23 11:07 | CA_ITS ---
Transthoracic Echocardiogram Patient (Last, First, Middle): Yao Sanches M Gender: Female Date of : 1995 Age: 28 Procedure Date: 08/23/2023 Procedure Type: Transthoracic Echocardiogram Location: OP Height: 162.56 cm Weight: 92.53 kg BSA: 1.97 m2 Heart Rate: bpm BP: 110 / 70 mmHg Job Placement Officer: TO Referring MD: Montez Douglas MD Symptoms: R00.0 - Tachycardia, unspecified Study Quality: Adequate ECG Rhythm: Sinus Conclusions: - The left ventricular systolic function is normal. The calculated ejection fraction is 60% by biplane method. - No obvious valvular pathology seen on this study. Findings Left Ventricle Normal left ventricular cavity size. There is normal left ventricular wall thickness. The left ventricular systolic function is normal. The calculated ejection fraction is 60% by biplane method. There is no evidence of regional wall motion abnormalities. Diastolic function is normal for age. LV peak GLS -19.2%. Right Ventricle Normal right ventricular cavity size and systolic function. Atria Both atria are normal in size. Aortic Valve There is a normal trileaflet aortic valve. There is no aortic valve stenosis. There is no aortic valve regurgitation. Mitral Valve The mitral valve appears normal. There is no mitral valve regurgitation. There is no mitral valve stenosis. Pulmonic Valve The pulmonic valve is likely normal. Tricuspid Valve There is no tricuspid valve regurgitation. Tricuspid regurgitation envelope is inadequate for calculation of right ventricular systolic pressure. Great Vessels The asc aorta is normal in size. Venous The inferior vena cava was not well visualized. The inferior vena cava is normal in size. Pericardium/Pleural There is a trivial pericardial effusion. Prior Study Comparison No prior study available for comparison. Recommendations, Care & Conclusions No obvious valvular pathology seen on this study. Measurements 2D Linear Measurements IVSd: 0.98 0.6-0.9/0.6-1.0 cm LVIDd: 4.13 3.9-5.3/4.2-5.9 cm LVIDd Index: 2.10 2.4-3.2/2.2-3.1 cm/m2 LVIDs: 2.69 2.0-3.6 cm LVPWd: 0.98 0.7-1.1 cm LA Diam: 3.90 2.7-3.8/3.0-4.0 cm LAIDs Index: 1.98 1.5-2.3 cm/m2 LV Mass: 161.64 67-162/88-224 g LV Mass Index: 82.05 43-95/49-115 g/m2 LVOT Diam: 2.10 3.0+(-)1.3 cm 2D Systolic Function EF 4C: 61.40 >55% EF 2C: 57.70 >55% EF BiP: 59.60 >55% Mitral Valve MV Pk E: 0.92 MV PK A: 0.53 MV Decel Time: 215.00 E/A: 1.70 E'Lateral: 10.70 E'Medial: 8.49 E/E' Med: 10.80 E/E' Lat: 8.60 PHT: 63.00 MVA PHT: 3.49 Decel Meriwether: 4.29 Aortic Valve AoV Pk Joel: 1.52 AoV Mn Joel: 1.08 AoV VTI: 0.29 AoV Pk Grad: 9.00 Aov Mn Grad: 5.00 JUAN R Cont.VTI: 2.29 LVOT LVOT Pk Joel: 1.10 LVOT Mn Joel: 0.64 LVOT VTI: 0.19 LVOT Pk Grad: 5.00 LVOT Mn Grad: 2.00 LVOT Diam: 2.10 LVOT Area: 3.46 Diastolic Function MV Pk E: 0.92 MV Pk A: 0.53 E/A: 1.70 E'Medial: 8.49 E/E' Med: 10.80 E' Laterial: 10.70 E/E' Lat: 8.60 Right Ventricle TAPSE (mm): 20.70 TVS' Joel: 12.60 Tricuspid Valve RA Press: 3.00 Great Vessels Aorta Sinus of Valsalva: 2.69 2.0-3.5 cm Ao Asc: 2.80 2.1-3.4 cm Updated in Other Vendor System with Status of Final Montez Douglas MD electronically signed on 08/24/2023 1:51:04 PM with status of Final
== END ==
LOC: HO.CARD 11:05
PROVIDERS: PCP Registered Nurse; Visit Provider Internal Medicine
DX: R00.0 Tachycardia, unspecified (principal); R00.2 Palpitations
CPT/HCPCS: 93225; 93306; 93356

== ENCOUNTER → 2023-08-23 11:07 | Outpatient (BNV) | payer MEDICAID, SELFPAY | PROVIDERS: PCP Registered Nurse; Visit Provider Internal Medicine | DX: R00.0 Tachycardia, unspecified (principal) | CPT/HCPCS: 93227; 93306 ==

== ENCOUNTER 2023-10-04 09:46 | Outpatient (REF) | payer MEDICAID, SELFPAY ==
--- NOTE | 2023-10-04 11:25 | MHC.AU.HA2 ---
Hearing Instrument Fitting- Adult- Binaural Date of Visit: 10/04/23 Hearing Instruments Dispensed: Right Ear: Make, Model, Color, Serial Number: Oticon Real 2 miniRITE R Chroma Beige SN [id number] Aviation Safety Inspector Repair Warranty: 09/28/2026 Aviation Safety Inspector Loss and Damage Warranty: 09/28/2026 [facility] Service Plan: 10/04/24 Battery Size: Rechargeable Assistant Teaching Professor/Slim Tube: #1 85g Earmold/Dome/CShell/SlimTip: 6mm dbl young Type of Wax Guard: ProWax MiniFit Left Ear: Make, Model, Color, Serial Number: Oticon Real 2 miniRITE R Chroma Beige SN [id number] Aviation Safety Inspector Repair Warranty: 09/28/2026 Aviation Safety Inspector Loss and Damage Warranty: 09/28/2026 [facility] Service Plan: 10/04/24 Battery Size: Rechargeable Assistant Teaching Professor/Slim Tube: #1 85g Earmold/Dome/CShell/SlimTip: 6mm dbl young Type of Wax Guard: ProWax MiniFit Accessories/Assistive Technology: Oticon Delivery Associate SN [id number] Summary of Fitting: Yao is here for hearing aid fitting with Real 2 miniRITE R. She is a first-time hearing aid user. Programmed to DSL 5.0 and adjusted from real ear measurements. Reduced to level 2 with auto adapt on for 1 month, as Yao has had hearing loss since childhood and never worn hearing aids. Her initial reaction was very positive. VC is active. Paired with her phone, she plans to download cristóbal at home. Reviewed basic use, cleaning/care, charging instructions. Follow up in 2-3 weeks. Recommendations: Recommendations: A hearing instrument follow-up is recommended in 2-3 weeks. Diagnosis Code(s): Primary Diagnosis: H90.3 Bilateral Sensorineural Hearing Loss Signature: Provider: Will Willard, [facility]
== END 2023-10-04 09:47 | disposition home or self-care (01) ==
LOC: HO.HAP 09:46
PROVIDERS: Visit Provider Registered Nurse
DX: Z46.1 Encounter for fitting and adjustment of hearing aid (principal); H90.3 Sensorineural hearing loss, bilateral
CPT/HCPCS: V5011; V5020; V5160; V5261

== ENCOUNTER 2023-10-29 11:23 | Outpatient (REF) | payer MEDICAID, SELFPAY | END 2023-10-29 11:24 | disposition home or self-care (01) | LOC: HO.HAP 11:23 | PROVIDERS: Visit Provider Registered Nurse | DX: Z13.89 Encounter for screening for other disorder (principal) ==

== ENCOUNTER 2023-11-19 15:25 | Outpatient (REF) | payer MEDICAID, SELFPAY | END 2023-11-19 15:26 | disposition home or self-care (01) | LOC: HO.HAP 15:25 | PROVIDERS: PCP Registered Nurse; Visit Provider Registered Nurse | DX: Z13.89 Encounter for screening for other disorder (principal) ==

== ENCOUNTER 2024-04-22 09:00 | Emergency (ER) | payer MEDICAID, SELFPAY ==
[2024-04-22 09:03] VITALS: BP 126/83; PULSE 123; RESP 19; TEMP 36.6; O2SAT 98; BMI 36.0
--- NOTE | 2024-04-22 09:21 | ED_ITS ---
HPI - General Adult General Chief complaint: Wound/Laceration Stated complaint: cyst on back Time Seen by Provider: 04/22/24 09:20 Source: patient and RN notes reviewed Mode of arrival: ambulatory Limitations: no limitations History of Present Illness ED Provider: Rabia Cota PA-C HPI narrative: This is a 28-year-old female, with a history of diabetes, who presents emergency department with complaints of lesion on back times 5 days. Patient states that she noticed an area of redness and swelling to her left back. She states that the area has been increasing in redness, pain and size. She states that she noticed that the area started to drain today. She denies any fevers or chills. She does endorse a slight headache. She denies history of similar symptoms in the past. She denies any body aches, chest pain, shortness breath, abdominal pain, nausea, vomiting or diarrhea. No other complaints or concerns at this time. MD complaint: Cellulitis Onset (ago): day(s) Radiation: non-radiation Pain Consistency: constant Relieving factors: none Exacerbating factors: none Associated symptoms: denies other symptoms Treatments prior to arrival: none Related Data Home Medications ?Medication ?Instructions ?Recorded ?Confirmed dulaglutide 0.75 mg/0.5 mL mg subcut QWEEK 08/06/23 08/06/23 subcutaneous [facility] Previous Rx's ?Medication ?Instructions ?Recorded naproxen 500 mg tablet 500 mg PO BID #14 tabs 02/25/23 ibuprofen 800 mg tablet 800 mg PO Q8H PRN pain #14 tabs 03/14/23 cephalexin 500 mg capsule 500 mg PO QID 7 days #28 caps 04/22/24 doxycycline hyclate 100 mg capsule 100 mg PO BID 7 days #14 caps 04/22/24 Allergies Allergy/AdvReac Type Severity Reaction Status Date / Time SEAFOOD AdvReac Unknown DIFFICULTY Uncoded 04/22/24 09:04 BREATHING Review of Systems Review of Systems: Yes all other systems are reviewed and are negative Constitutional: Constitutional: Reports as per HPI [facility] Past Medical History Medical History (Updated 04/22/24 @ 11:08 by STEPHANIE Kuhn) Hx gestational diabetes Surgical History (Updated 08/06/23 @ 11:12 by Ese Ardon) Hx of tubal ligation Family History Family History Mother Diabetes mellitus Lupus Asthma Maternal Grandmother Diabetes mellitus HTN (hypertension) CAD (coronary artery disease) Maternal Grandfather No problems noted. 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 Current occupational exposures/hazards: No Gender identity: Female Physical Exam ED Vital Signs: Vital Signs - 24 hr 04/22/24 09:03 04/22/24 11:15 Temperature 98 F 98.2 F Pulse Rate 123 H 100 Respiratory Rate 19 16 Blood Pressure 126/83 110/55 L Pulse Oximetry 98 100 Oxygen Delivery Method Room Air Room Air BMI result Body Mass Index 36.0 Const General: cooperative, comfortable and no acute distress Orientation/consciousness: patient oriented x3 Limitations: no limitations [facility] Head: Yes normal to inspection, Yes normocephalic and Yes atraumatic Ears: hearing grossly normal bilaterally General nose exam: Normal external nose present Face and sinus: Yes normal facial exam Mouth: Normal oral and palatal mucosa present, oropharynx normal and moist mucous membranes Throat: Yes posterior oropharynx normal Eyes General: appearance normal, both eyes and all related structures Eyelids: Yes eyelids normal Conjunctivae: conjunctivae normal Sclerae: sclerae normal Pupils: Equal, round and reactive pupils present EOM: EOMs intact bilaterally Neck Neck: Yes normal visual inspection, Yes full ROM and Yes no lymphadenopathy Lymphatic: no lymphadenopathy noted Chest Chest palpation & inspection: normal inspection of the chest Resp Effort & Inspection: normal respiratory effort and able to speak in complete sentences Auscultation: clear to auscultation bilaterally, no crackles, no rales, no rhonchi and no wheezes Cardio Rate: regular rate Rhythm: regular rhythm Heart sounds: S1 normal heart sound present and S2 normal heart sound present GI Inspection: Yes normal to inspection Skin Other: Left flank with 8x2cm area of erythema, induration, and tenderness. There is a pustule noted in the central region, normoactive drainage. No fluctuance. General skin exam: no rashes or lesions noted Trauma: no lacerations or abrasions Wounds: no wounds Neuro General: patient oriented x3 and moves all extremities Cranial nerves: Yes Equal, round and reactive pupils present Extrem General: Yes normal to inspection Right upper extremity: normal to inspection Left upper extremity: normal to inspection Right lower extremity: normal to inspection Left lower extremity: normal to inspection Medical Decision Making Medical Decision Making [facility] Narrative: This is a 28-year-old female who presents emergency department with complaints of left flank cellulitis which started 5 days ago. On arrival, vital signs within normal limits besides pulse of 123. She is afebrile and nontoxic appearing. She does have tenderness palpation along the left flank with associated cellulitis. No evidence of abscess, does not need to be drained at this time. Discussed findings with patient. She does have a history of diabetes, would like her sugars to be checked. Will treat with doxycycline, Keflex, and given strict return precautions. Area was outlined with skin marker. Blood glucose 182. Given return precautions. Patient stable for discharge. Differential Diagnosis Differential Diagnoses: The differential diagnosis associated with the presentation includes Cellulitis, abscess, folliculitis, contact dermatitis Lab Data [facility] Lab Attestation statement: I reviewed the patient's lab results. Labs: Lab Results 04/22/24 Range/Units 10:55 POC Glucose 182 H (60-115) mg/dL Discharge Plan Discharge Clinical Impression: Cellulitis Patient Disposition: Home, Self-Care Instructions: Cellulitis (ED) Additional Instructions: You were seen in the emergency department due to a skin infection. Please take prescribed antibiotics as directed. Finish the entire course even if your symptoms improve. Apply warm compresses 5-6 times per day. You may microwave a warm Joon clots, or apply a tea bag to the area to help get infection to the surface. Alternate between ibuprofen and Tylenol as needed for pain. If any new or worsening symptoms occur including but not limited to increased redness, swelling, pain, please return for re-evaluation. Your blood glucose level was 187 today. Please continue all at-home medications. Prescriptions: New doxycycline hyclate 100 mg capsule 100 mg PO BID 7 Days Qty: 14 0RF cephalexin 500 mg capsule 500 mg PO QID 7 Days Qty: 28 0RF No Action naproxen 500 mg tablet 500 mg PO BID Qty: 14 0RF ibuprofen 800 mg tablet 800 mg PO Q8H PRN (Reason: pain) Qty: 14 0RF Trulicity 0.75 mg/0.5 mL pen injector subcut QWEEK Interventions: ED Discharge Assessment Last Done: 04/22/24 11:15 Discharge Date/Time: 04/22/24 11:16 Print Language: Yoruba
[2024-04-22 10:59] LABS: Glucose, Whole Blood 182 mg/dL (60-115)
[2024-04-22 11:15] VITALS: BP 110/55; PULSE 100; RESP 16; TEMP 36.8; O2SAT 100
== END 2024-04-22 11:16 | disposition home or self-care (01) ==
PROVIDERS: Emergency Provider Emergency Medicine Emergency Medical Services; PCP Registered Nurse
DX: L03.312 Cellulitis of back [any part except buttock and flank] (principal); E11.9 Type 2 diabetes mellitus without complications; Z79.85 Long-term (current) use of injectable non-insulin antidiabetic drugs
CPT/HCPCS: 82947; 99282; 99283

== ENCOUNTER 2024-05-20 14:47 | Outpatient (REF) | payer MEDICAID, SELFPAY ==
[2024-05-20 16:53] LABS: Alanine Aminotransferase 16 U/L (0-31); Alkaline Phosphatase 73 U/L (39-117); Anion Gap 14 (12-20); Aspartate Amino Transferase 13 U/L (5-31); Bilirubin Total 0.2 mg/dL (0.0-1.0); Blood Urea Nitrogen 11 mg/dL (9-16); Calcium 9.4 mg/dL (8.4-10.2); Carbon Dioxide 24 mmol/L (22-29); Chloride 104 mmol/L (96-108); Estimated Glomerular Filt Rate > 60; Glucose Random 203 mg/dL (60-115); Potassium 3.8 mmol/L (3.3-5.1); Sodium 138 mmol/L (135-145); Total Protein 8.3 g/dL (6.5-8.0)
[2024-05-20 17:22] LABS: Creatinine Urine 137.08 mg/dL; Microalbum/Creatinine Ratio Ur 5.8 ug/mg cr (<30)
[2024-05-23 01:38] LABS: TS Negative Control Passed; TS Panel A 3; TS Panel B 2; TS Positive Control Passed; TSpotTB Negative (Negative)
== END 2024-05-20 14:48 | disposition home or self-care (01) ==
LOC: HO.HHCL 14:47
PROVIDERS: Visit Provider Registered Nurse
DX: E11.9 Type 2 diabetes mellitus without complications (principal); Z11.1 Encounter for screening for respiratory tuberculosis
CPT/HCPCS: 36415; 80053; 82043; 82570; 86481

== ENCOUNTER 2024-09-03 13:32 | Outpatient (REF) | payer MEDICAID, SELFPAY ==
[2024-09-04 02:25] LABS: CT PCR NOT DETECTED (Not Detect.); NG PCR NOT DETECTED (Not Detect.)
[2024-09-04 08:35] LABS: Bacterial Vaginosis PCR POSITIVE (Negative); Candida Group PCR NOT DETECTED (Not Detect); Candida glab krusei PCR NOT DETECTED (Not Detect); Trichomonas vaginalis PCR NOT DETECTED (Not Detect)
== END 2024-09-03 13:33 | disposition home or self-care (01) ==
LOC: HO.HHCLNP 13:32
PROVIDERS: Visit Provider Family Medicine
DX: R10.2 Pelvic and perineal pain (principal)
CPT/HCPCS: 81515; 87086; 87491; 87591

== ENCOUNTER 2024-11-27 12:22 | Outpatient (REF) | payer MEDICAID, SELFPAY ==
--- OUTSIDE RECORDS SUMMARY | 2024-11-27 14:15 | XMS_ITS | Encounter Summary ---
Author Organization [employer] Address [address] [place] [address] Care Team Providers Care Coremaker Bench Name Role Phone Lea Santiago [employer] Primary Care Provider [phone] Reason for Visit * Reason Onset Date Comments Med Refill 11/04/2023 Encounter Details Date Type Department Care Team (Late st Contact Info) Description 11/04/2023 Refill [facility] [address] [place] [address] Rizwan Almanzar MD [address] [place] [address] Social History Tobacco Use Types Packs/Day Years Used Date Smoking Tobacco: Former Cigarettes Q uit: 12/01/2022 Passive Smoke Exposure: Past Smokeless Tobacco: Never Alcohol Use Standard Drinks/Week Comments Not Currently 0 (1 standard drink = 0.6 oz pur e alcohol) Depression Answer Date Recorded Patient Health Questionnaire-9 Score 0 07/10/2023 Patient Health Questionnaire-9 Score 0 07/10/2023 Last PHQ-9: Questionnaire Data Not on file 1 09/09/2022 Housing Stability Answer Date Recorded What is your housing situation today? I have lizett perez 06/25/[address] you li ve. Do you have problems with any of the following? None of the above 06/25/2023 Food Insecurity Answer Date Recorded Within the past 12 months, y ou worried that your food would run out before you got money to buy more: Never True 06/25/2023 Within the past 12 months,th e food you bought just didn't last and you didn't have enough money to get more: Never True Transportation Answer Date Recorded In the past 12 months, has l ack of transportation kept you from medical appts, meetings, work or from getting things needed for daily living? No 06/25/2023 Utilities Answer Date Recorded In the past 12 months, has t he electric, gas, oil or water company threatened to shut off services in your home? No 06/25/2023 Depression Answer Date Recorded Patient Health Questionnaire-2 Score 0 07/10/2023 Comments Unknown Sex and Gender Information Value Date Recorded Sex Assigned at Female 06/25/2022 10:14 AM EDT Legal Sex Female 10:14 AM EDT Gender Identity Female 06/25/2022 10:14 AM EDT Sexual Orientation Straight 06/25/2022 10 :14 AM EDT documented as of this encounter Plan of Treatment Not on file documented as of this encounter Visit Diagnoses Not on filedocumented in this encounter Additional Health Concerns Assessment Noted Time PHQ-9 Depression Total Score: 0 07/10/20 23 10:14 AM EST documented as of this encounter Care Teams Coremaker Bench Relationship Specialty Start Date End Date Lea Santiago FNP [address] [place] [id number] PCP - General Family Medicine 04/22/22 documented as of this encounter
--- OUTSIDE RECORDS SUMMARY | 2024-11-27 14:15 | XMS_ITS | Clinical Summary ---
Author Organization [employer] Address [address] [place] [address] Care Team Providers Care Contact Lens Manufacturer Name Role Phone Lea Santiago SIGN LANGUAGE INTERPRETER Primary Care Provider Allergies Active Allergy Reactions Criticality Noted Date Comments Shellfish Allergy Shortness of breath High 1 Shellfish-Derived Products 7 Medications ketotifen (Zaditor) 0.025 % ophthalmic solutionIndicat ions:Mild intermittent asthma without complication ADMINISTER 1 DROP INTO BOTH EYES TWICE A DAY 10 mL 11/06/19 24 Active albuterol 108 (90 Base) MCG/ACT inhalerIndicati ons:Mild intermittent asthma without complication INHALE 2 PUFFS BY MOUTH EVERY 6 HOURS IF NEEDED FOR WHEEZING 18 g 11 01/27/20 24 Active triamcinolone (Nasacort) 55 MCG/ACT nasal inhaler SPRAY 2 SPRAYS INTO EACH NOSTRIL IN THE MORNING 50.7 mL 1 04/20/20 24 Active acetaminophen (Tylenol) 500 MG tablet TAKE 2 TABLETS BY MOUTH EVERY 6 HOURS IF NEEDED FOR MODERATE PAIN OR FEVER 50 tablet 05/04/20 24 Active Spacer/Aero-Hol ding Chambers (AeroChamber MV) inhalerIndicati ons:Mild intermittent asthma without complication USE as INSTRUCTED 1 each 2 05/04/20 24 Active Blood Glucose Monitoring Suppl (GNP Easy Touch Glucose Meter) deviceIndicatio ns:Type 2 diabetes mellitus without complication, without long-term current use of insulin (CMS/HCC) Use as directed to check blood sugar four times daily 1 each 05/08/20 24 Active loratadine (Claritin) 10 MG tablet TAKE 1 TABLET BY MOUTH EVERY DAY IN THE MORNING 90 tablet 10/07/19 25 Active Diclofenac Sodium 1 % gelIndications: Arthralgia of both hands APPLY 2 GRAMS TOPICALLY TO THE AFFECTED AREA TWICE A DAY 100 g 10/07/19 25 Active celecoxib (CeleBREX) 200 MG capsuleIndicati ons:Chronic pain of both feet Take 1 capsule (200 mg) by mouth 2 times daily. 60 capsule 11/28/19 25 025 Active Dulaglutide 0.75 MG/0.5ML solution auto-injectorIn dications:Type 2 diabetes mellitus without complication, without long-term current use of insulin (CMS/HCC) Inject 0.75 mg under the skin 1 (one) time per week. 2 mL 3 11/28/19 25 026 Active FreeStyle lancetsIndicati ons:Type 2 diabetes mellitus without complication, without long-term current use of insulin (CMS/HCC) 1 each by Other route 4 times daily. USE TO TEST BLOOD SUGAR FOUR TIMES A DAY 100 each 11/28/19 25 Active glucose blood test stripIndication s:Type 2 diabetes mellitus without complication, without long-term current use of insulin (CMS/HCC) USE TO TEST BLOOD SUGAR FOUR TIMES A DAY 100 each 11/28/19 25 Active Alcohol Swabs (Alcohol Prep) padsIndications :Type 2 diabetes mellitus without complication, without long-term current use of insulin (CMS/HCC) Use one pad each to prep skin prior to injection as directed 100 each 11/28/19 25 Active dulaglutide (Trulicity) 0.75 MG/0.5ML solution pen-injectorInd ications:Type 2 diabetes mellitus without complication, without long-term current use of insulin (CMS/HCC) Inject 0.75 mg under the skin 1 (one) time per week. 4 each 05/08/20 24 025 Discontinued(R eorder (will not trigger notification to Pharmacy)) Alcohol Swabs (Alcohol Prep) padsIndications :Type 2 diabetes mellitus without complication, without long-term current use of insulin (CMS/HCC) Use one pad each to prep skin prior to injection as directed 100 each 07/08/20 24 025 Discontinued(R eorder (will not trigger notification to Pharmacy)) FreeStyle lancetsIndicati ons:Type 2 diabetes mellitus without complication, without long-term current use of insulin ([facility]) 1 each by Other route 4 times daily. USE TO TEST BLOOD SUGAR FOUR TIMES A DAY 100 each 11 07/08/20 24 025 Discontinued(R eorder (will not trigger notification to Pharmacy)) glucose blood test stripIndication s:Type 2 diabetes mellitus without complication, without long-term current use of insulin ([facility]) USE TO TEST BLOOD SUGAR FOUR TIMES A DAY 100 each 11 07/08/20 24 025 Discontinued(R eorder (will not trigger notification to Pharmacy)) naproxen (Naprosyn) 500 MG tabletIndicatio ns:Arthralgia of both hands TAKE 1 TABLET BY MOUTH TWICE DAILY NEEDED FOR MODERATE PAIN 30 tablet 1 07/08/20 24 025 Discontinued ibuprofen 600 MG tablet Take 1 tablet (600 mg) by mouth every 6 (six) hours if needed for mild pain. 40 tablet 1 09/03/19 25 025 Active Problems Problem Noted Date Diagnosed Date Tachycardia 02/21/2023 Overview (02/21/2023): ?? Hx of intermittent tachycardia with shortness of breath ?? EKG neg 12/2022 ?? TSH/CBC WNL 11/2022 ?? Referral to cardiology 12/2022 Assessment & Plan (02/21/2023 5:59 AM EDT): ?? Has upcoming assessment with cardiology ?? Continue to monitor ?? ED if a/w shortness of breath, weakness, chest pain Healthcare maintenance 02/21/2023 Overview (02/21/2023): Mammo: Routine age 43 Pap: Approx 2 years ago, normal at [facility] C-scope: Routine age 43 Assessment & Plan (05/13/2023 11:21 AM EDT): ?? Pt declines flu vaccine today ?? Would prefer to follow up with cervical cancer screening through [facility]. Will schedule patient for pap follow up Mild intermittent asthma without complication Overview (02/21/2023): Albuterol PRN Assessment & Plan (02/21/2023 6:00 AM EDT): ?? Inhaler refilled ?? Contact HC if requiring rescue inhaler >2x/week ?? ACT score at follow up Intervertebral disc disorder of lumbar region with myelopathy 12/05/2022 Overview (02/21/2023): ?? Duloxetine Type 2 diabetes mellitus without complication Overview (05/13/2023): ?? Trulicity .75mg ?? Unable to tolerate metformin 01/2023- 9.0 BMP: 12/2022 Microalbumin: Pending Foot Exam: Complete at follow up Eye Exam: Referral placed 04/2023 Lipid panel:12/2022 Statin: No ASA: No SERGE/ARB: No Encouraged regular aerobic exercise for improved glycemic control Encouraged daily foot checks Encouraged lean protein snacks and to avoid foods high in sugar and simple carbohydrates Treatment Goals: A1c goal: <7% FBG goal: <130 2 hour post prandial goal: <180 Assessment & Plan (08/27/2023 9:31 PM EST): Lab Results Component Value Date HGBA1C 8.5 (A) 08/09/2023 ?? INCREASE Trulicity to 1.5mg subcutaneous ?? Plan to update labs at follow up Assessment & Plan (05/13/2023 11:20 AM EDT): Lab Results Component Value Date HGBA1C 8.5 (A) 05/13/2023 ?? A1c improving. Enaged in shared decision making with patient re treatment options. Patient prefers to restart trulicity at lower dose and trial strict dietary changes. ?? Accepts referral to [facility] DM educator Assessment & Plan (02/21/2023 5:52 AM EDT): Lab Results Component Value Date HGBA1C 9.0 (A) 02/18/2023 ?? INCREASE trulicity to 1.5mg Vitamin D deficiency 04/09/2017 Hypercholesterolemia 11/01/2015 Resolved Problems Problem Noted Date Diagnosed Date Resolved Date Lumbar disc disorder with myelopathy 04/27/2020 02/21/2023 Thoracic disc disorder with myelopathy 04/27/2020 02/21/2023 Disorder of thyroid gland 11/01/2015 Encounters Date Type Department Care Team Description 11/27/2024 11:00 AM EDT Office Visit [facility] [address] [place] [phone] Lea Santiago FNP Type 2 diabetes mellitus without complication, without long-term current use of insulin ([facility]) (Primary Dx); Chronic pain of both feet 11/27/2024 Travel 11/24/2024 Telephone [facility] [address] [place] [phone] Lea Santiago FNP Nurse Triage 11/24/2024 Telephone [facility] [address] [place] [phone] Lea Santiago FNP Med Refill 11/06/2024 Population Health Risk Score [facility] Department [address] [place] [phone] Provider, Population Health Generic 10/05/2024 Refill [facility] [address] [place] [address] Lea Santiago FNP Arthralgia of both hands; Type 2 diabetes mellitus without complication, without long-term current use of insulin (CMS/HCC) 09/03/2024 10:20 AM EST Office Visit [facility] [address] [place] [phone] Jody Ingram DO Suprapubic pain (Primary Dx); Vaginal discharge from Last 3 Months Immunizations Name Administration Dates Next Due Influenza injectable quadrivalent preservative f ree 07/10/2023,06/11/2016 Influenza, IIV3, injectable 06/23/2021 Influenza, Injectable, MDCK, preservative free 0 05/08/2024 Pneumococcal Conjugate PCV 20 05/08/2024 Tdap 06/23/2021 Family History Medical History Relation Name Comments Diabetes Mother Hypertension Mother Lupus Mother Breast cancer Neg Hx Colon cancer Neg Hx Relation Name Status Comments Mother Social History Tobacco Use Types Packs/Day Years Used Date Smoking Tobacco: Former Cigarettes Q uit: 12/01/2022 Passive Smoke Exposure: Past Smokeless Tobacco: Never Tobacco Cessation:Counseling Given: Not Answered Alcohol Use Standard Drinks/Week Comments Not Currently 0 (1 standard drink = 0.6 oz pur e alcohol) Depression Answer Date Recorded Patient Health Questionnaire-9 Score 0 07/10/2023 Patient Health Questionnaire-9 Score 0 07/10/2023 Last PHQ-9: Questionnaire Data Not on file 1 09/09/2022 Housing Stability Answer Date Recorded What is your housing situation today? I have housing today, but I am worried about losing housing in the future 06/15/[address] you li ve. Do you have problems with any of the following? None of the above 06/15/2024 Food Insecurity Answer Date Recorded Within the past 12 months, y ou worried that your food would run out before you got money to buy more: Sometimes True 2023 Within the past 12 months,th e food you bought just didn't last and you didn't have enough money to get more: Sometimes True 06/15/2024 Transportation Answer Date Recorded In the past 12 months, has l ack of transportation kept you from medical appts, meetings, work or from getting things needed for daily living? No 06/15/2024 Utilities Answer Date Recorded In the past 12 months, has t he electric, gas, oil or water company threatened to shut off services in your home? No 06/15/2024 Depression Answer Date Recorded Patient Health Questionnaire-2 Score 0 07/10/2023 Internet Access Answer Date Recorded Internet Access Q1 Yes 06/15/2024 Internet Access Q2 Not on file 06/15/2024 Comments Unknown Sex and Gender Information Value Date Recorded Sex Assigned at Female 06/25/2022 10:14 AM EDT Legal Sex Female 10:14 AM EDT Gender Identity Female 06/25/2022 10:14 AM EDT Sexual Orientation Straight 06/25/2022 10 :14 AM EDT Last Filed Vital Signs Vital Sign Reading Time Taken Comments Blood Pressure 124/82 11/27/2024 11:00 AM EDT Pulse 76 11/27/2024 11:00 AM EDT Temperature 36.2 ??C (97.2 ??F) 11/27/2024 1 1:00 AM EDT Respiratory Rate 20 11/27/2024 11:0 0 AM EDT Oxygen Saturation 98% 09/03/2024 10: 17 AM EST Inhaled Oxygen Concentration - - Weight 91.5 kg (201 lb 12.8 oz) 025 11:00 AM EDT Height 162.6 cm (5' 4 ) 11/27/2024 11:0 0 AM EDT Body Mass Index 34.64 11/27/2024 11:00 AM EDT Plan of Treatment Health Maintenance Due Date Last Done Comments HIV Screening 1995 Eye Exam 2003 Alcohol/Substance Use Screening 2005 Family Planning (PISQ) 2008 Hepatitis B Vaccines (1 of 3 - 19+ 3-dose series) 2012 Lipid Panel 03/28/2023 03/28/2022, 11/25, 05/31/2020 HPV/Cotest 2023 COVID-19 Vaccine ( season) 2024 08/15/2021, 07/14/2021 Depression Screening 07/10/2024 07/10/2023, 07/10/20 23 Diabetes: Hemoglobin A1C 08/07/2024 024, 08/09/2023, 05/13/2023, Additional history exists Diabetes: Foot Exam 05/08/2025 05/08/2024, 05/08/2024, 05/08/2024, Additional history exists Diabetes: Urine Protein Screening 05/20/2025 05/20/2024 SDOH Screening 06/15/2025 06/15/2024 Tobacco Screening 11/27/2025 11/27/2024 Cervical Cancer Screening 08/09/2028 Pap Smear 08/09/2028 08/09/2023 DTaP/Tdap/Td Vaccines (2 - Td or Tdap) 06/23/2031 06/23/2021 Zoster Vaccines (1 of 2) 2043 RSV Patients and Patients Aged 60 years or older (1 - 1-dose 75+ series) 2068 Hepatitis C Screening Completed 12/14/2020 Influenza Vaccine Completed 05/08/2024, , 06/23/2021, Additional history exists Pneumococcal Vaccine: Pediatrics (0 to 5 Years) and At-Risk Patients (6 to 49) Years) Completed 05/08/2024 HIB Vaccines Aged Out No longer eligi ble based on patient's age to complete this topic HPV Vaccines Aged Out No longer eligi ble based on patient's age to complete this topic Hepatitis A Vaccines Aged Out No long er eligible based on patient's age to complete this topic IPV Vaccines Aged Out No longer eligi ble based on patient's age to complete this topic Meningococcal Vaccine Aged Out No kirill shorty eligible based on patient's age to complete this topic RSV under 20 months Aged Out No longe r eligible based on patient's age to complete this topic Rotavirus Vaccines Aged Out No longer eligible based on patient's age to complete this topic Procedures Procedure Name Priority Date/Time Associated Diagnosis Comments POCT URINALYSIS DIPSTICK Routine 09/03/2024 11:44 AM EST Suprapubic pain CHLAMYDIA/N. GONORRHOEAE RNA, TMA, UROGENITAL Routine 09/03/2024 10:54 AM EST Suprapubic pain BACTERIAL VAGINOSIS PANEL Routine 09/03/2024 10:54 AM EST Suprapubic pain CULTURE, URINE, ROUTINE Routine 09/03/2024 10:54 AM EST Suprapubic pain ALBUMIN, RANDOM URINE W/CREATININE Routine 05/20/2024 3:03 PM EDT Type 2 diabetes mellitus without complication, without long-term current use of insulin ([facility]) POCT GLYCOSYLATED HEMOGLOBIN (HGB A1C) Routine 05/08/2024 12:04 PM EDT Type 2 diabetes mellitus without complication, without long-term current use of insulin ([facility]) PAP SMEAR Routine 08/09/2023 2:56 PM EST Encounter for routine gynecological examination with Papanicolaou smear of cervix LIPID PANEL, STANDARD Routine 03/28/2022 1:05 PM EDT DALIA HISTORICAL HEPATITIS C AB W/REFL TO HCV RNA, QN, PCR Routine 12/14/2020 11:04 AM EDT from Last 3 Months or Most Recently Relevant to Health Maintenance Results * POCT urinalysis dipstick manually resulted (09/03/2024 11:44 AM EST) Color, UA Yellow Clarity, UA Clear Glucose, UA Negative Bilirubin, UA Negative Ketones, UA Negative Spec Grav, UA 1.025 Blood, UA Negative Negative, None Detected pH, UA 5.5 Protein, UA Negative Urobilinogen, UA 0.2 Leukocytes, UA Negative Negative, Rare, Trace Nitrite, UA Negative Negative, None Detected Urine 09/03/2024 11:4 4 AM EST Jody Ingram DO POINT OF CARE TEST ENTER/ALYSSA T ORDERABLES Final Result * (ABNORMAL) Bacterial Vaginosis Panel (09/03/2024 10:54 AM EST) TRICHOMONAS VAGINALIS DETECTION BY PCR NOT DETECTED Not Detect [facility] BACTERIAL VAGINOSIS DETECTION BY PCR POSITIVE(A) Negative [facility] Comment:The BV organism targ ets of the Xpert Xpress MVP test can becommensal in women; Xpert Xpress MVP positive results forbacterial vaginosis should be considered in conjunction withother clinical and patient information to determine thedisease status. Organisms that are not detected by the XpertXpress MVP test have also been reported to be associatedwith BV and aerobic vaginitis.The Xpert Xpress MVP test performance has not been evaluatedin patients under the age of 14. KATINA GROUP DETECTION BY PCR NOT DETECTED Not Detect [facility] Katina glab krusei PCR NOT DETECTED Not Detect [facility] Swab Vaginal structure / Unknown 09/03/2024 10:54 AM EST 09/03/2024 1:33 PM EST Jody Ingram DO LAB MICROBIOLOGY - GENERAL O RDERABLES Final Result [facility] [address] [place] [phone] * Chlamydia/N. Gonorrhoeae RNA, TMA, Urogenitial (09/03/2024 10:54 AM EST) CT PCR NOT DETECTED Not Detect. [facility] Comment:A not detected test result does not exclude the possibilityof infection because test results can be affected byimproper specimen collection, concurrent antibiotic therapy,or the number of organisms in the specimen which may bebelow the sensitivity of the test. As with many diagnostictests, results from the Xpert CT/NG assay should beinterpreted in conjunction with other laboratory andclinical data available to the clinician.Xpert CT/NG performance has not been evaluated in patientsless than 14 years of age. The assay should not be used forthe evaluationof suspected sexual abuse or for other medico-legalindications. Additional testing is recommended in anycircumstance when false positive or false negative resultscould lead to adverse medical, social or psychologicalconsequences. NG PCR NOT DETECTED Not Detect. [facility] Comment:A not detected test result does not exclude the possibilityof infection because test results can be affected byimproper specimen collection, concurrent antibiotic therapy,or the number of organisms in the specimen which may bebelow the sensitivity of the test. As with many diagnostictests, results from the Xpert CT/NG assay should beinterpreted in conjunction with other laboratory andclinical data available to the clinician.Xpert CT/NG performance has not been evaluated in patientsless than 14 years of age. The assay should not be used forthe evaluationof suspected sexual abuse or for other medico-legalindications. Additional testing is recommended in anycircumstance when false positive or false negative resultscould lead to adverse medical, social or psychologicalconsequences. Swab (Vaginal Swab) 09/03/2024 10:54 AM EST 09/03/2024 1:33 PM EST Narrative [facility] - 09/04/2024 2:25 AM EST Vaginal Jody Juan Jose JARQUIN LAB MICROBIOLOGY - GENERAL O RDERABLES Final Result Performing Organization Address City/[facility]/ZIP Co de Phone Number [facility] [address] [place] [address] [phone] * Culture, Urine, Routine (09/03/2024 10:54 AM EST) Urine Urine specimen obtained by clean catch procedure / Unknown 09/03/2024 10:54 AM EST 09/03/2024 1:33 PM EST Comment:UACC Narrative [facility] - 09/04/2024 11:50 AM EST Urine Culture No growth. Specimen Source: Urine clean catch Jody Ingram DO LAB MICROBIOLOGY - GENERAL O RDERABLES Final Result Performing Organization Address [facility] Co de Phone Number [facility] [address] [place] [address] [phone] * Albumin, Random Urine W/Creatinine (05/20/2024 3:03 PM EDT) Creatinine, Urine 137.08 mg/dL [facility] Microalbumin Urine 8.0 mg/L [facility] Microalbum Creatinine Ratio Ur 5.8 <30 ug/mg cr [facility] Comment:Albumin/Creatinine R atio Reference Ranges: Normal: < 30 ug/mg creatinine Microalbuminuria: 30 - 300 ug/mg creatinineClinical Albuminuria: > 300 ug/mg creatinine Urine 05/20/2024 3:03 PM EDT 05/20/2024 4:26 PM EDT [facility] LAB URINE ORDERABLES Final Re sult Performing Organization Address City/[facility]/ZIP Co de Phone Number [facility] [address] [place] [address] [phone] * (ABNORMAL) POCT glycosylated hemoglobin (Hgb A1c) (05/08/2024 12:04 PM EDT) Hemoglobin A1C 7.8(A) 4.0 - 6.0 % QC Media Lot # [id number] Lot# Expiration Date [id number] Blood Capillary blood specimen / Unknown 05/08/2024 12:04 PM EDT [facility] SIGN LANGUAGE INTERPRETER POINT OF CARE TEST ENTER/EDIT ORDERABLES Final Result * Pap Smear (08/09/2023 2:56 PM EST) Swab 08/09/2023 2:56 PM EST 08/12/2023 12:00 PM EST Narrative [facility] - 08/14/2023 11:37 AM EST ----- ------- Name: Yao Sanches ? Age/Sex: 28/F ? : 1995 Unit#: [id number] ?? Attend Dr: ?Re08/09/23 ?Status: PRE REF ? Location: HO.LNP ?Disch: ? ----- ------- SPEC : [id number] ?RECD: 08/12/23-1200 ? STATUS: ??SOUT ? REQ NUM: [id number] ? BATSHEVA: 08/09/23-6496 ? SUBM DR: Lea Santiago ? ENTERED: ??08/12/23-5 ?SP TYPE: Pap Smr ?OTHR DR: ? ORDERED: ??Pap Smear ? Interpretation ?? Satisfactory for evaluation. ?? Coccobacilli consistent with shift in vaginal lurdes. ?? Negative for intraepithelial lesion or malignancy. ?Clinical Information LMP: 07/31/2023 Previous PAP test: Unknown date/findings ? Material Received ?? ThinPrep-Vaginal/Cervical ----- ------- Signed (signature on file) GURMEET Cali (ASCP) 08/14/23 1137 ? ----- ------- ? END OF REPORT ? [facility] LAB CYTOLOGY ORDERABLES Final Result [facility] [address] [place] [phone] * (ABNORMAL) LIPID PANEL, STANDARD (03/28/2022 1:05 PM EDT) Chol/HDLC Ratio 4.5 <5.0 (calc) [facility] Cholesterol, Total 250(H) <200 mg/dL [facility] HDL Cholesterol 56 > OR = 50 mg/dL [facility] LDL Cholesterol 147(H) mg/dL (calc) [facility] Comment: Reference range: <100 ?? Desirable range <100 mg/dL for primary prevention; ?? <70 mg/dL for patients with CHD or diabetic patients ?? with > or = 2 CHD risk factors. ?? LDL-C is now calculated using the Vickie ?? calculation, which is a validated novel method providing ?? better accuracy than the Friedewald equation in the ?? estimation of LDL-C. ?? Ricci YAÑEZ et al. PRETTY. 2013;310(19): 6835-4149 ?? (http://education.PublicStuff.Workec/faq/HOF359) Non-HDL Cholesterol 194(H) <130 mg/dL (calc) [facility] Comment: For patients with diabetes plus 1 major ASCVD risk ?? factor, treating to a non-HDL-C goal of <100 mg/dL ?? (LDL-C of <70 mg/dL) is considered a therapeutic ?? option. Triglycerides 305(H) <150 mg/dL [facility] Comment: ?? If a non-fasting specimen was collected, consider repeat triglyceride testing on a fasting specimen if clinically indicated. ?? Nikhil et al. J. of Clin. Lipidol. 2015;9:129-169. ?? 03/28/2022 1:05 PM EDT Honey Cooper SIGN LANGUAGE INTERPRETER LAB BLOOD ORDERABLES Final Res ult Performing Organization Address [facility] de Phone Number [facility] [address] * HEPATITIS C AB W/REFL TO HCV RNA, QN, PCR (12/14/2020 11:04 AM EDT) HEPATITIS C ANTIBODY NON-REACT FRITZ NON-REACT FRITZ [facility] INDEX 0.03 <1.00 [facility] Comment: ?? HCV antibody was non-reactive. There is no laboratory ?? evidence of HCV infection. ?? In most cases, no further action is required. However, if recent HCV exposure is suspected, a test for HCV RNA (test code 75266) is suggested. ?? For additional information please refer to http://education.Datadecision/faq/SZZ84n2 (This link is being provided for informational/ educational purposes only.) ?? 12/14/2020 11:0 4 AM EDT Honey Kenneth SIGN LANGUAGE INTERPRETER HISTORICAL/NON ORDERABLE LABS Final Result Performing Organization Address [facility] de Phone Number [facility] [address] from Last 3 Months or Most Recently Relevant to Health Maintenance Insurance [facility]3 Care Teams Contact Lens Manufacturer Relationship Specialty Start Date End Date Lea Santiago FNP [address] [place] [phone] PCP - General Family Medicine 04/22/22
--- OUTSIDE RECORDS SUMMARY | 2024-11-27 14:15 | XMS_ITS | Encounter Summary ---
Author Organization [employer] Address [address] [facility] 7t [place] [address] Care Team Providers Care Flatbed Owner Operator Name Role Phone [facility] Primary Care Provider [phone] Reason for Visit * Reason Onset Date Comments Med Refill 11/24/2024 Encounter Details Date Type Department Care Team (Late st Contact Info) Description 11/24/2024 Telephone [facility] [address] [place] [address] [facility] 230 [place] [address] Med Refill Social History Tobacco Use Types Packs/Day Years [...] AM EDT documented as of this encounter Miscellaneous Notes * Telephone Encounter - Jody Dubon LPN - 11/24/2024 1:06 PM EDT Medication was sent to [facility] with 11 refills please advise patient to call pharmacy and transfer medication. * Telephone Encounter - Dawson Ruffin - 11/24/2024 12:23 PM EDT TC from pt requesting medication refill. Medications needing refill : dulaglutide (Trulicity) 0.75 MG/0.5ML solution pen-injector To be sent to: [facility]/pharmacy #[id number] [facility] [place] - [address] [place] [address] documented in this encounter Plan of Treatment Not on file documented as of this encounter Visit Diagnoses Not on filedocumented in this encounter Additional Health Concerns Assessment Noted Time PHQ-9 Depression Total Score: 0 07/10/20 10:14 AM EST documented as of this encounter Care Teams Flatbed Owner Operator Relationship Specialty Start Date End Date [facility] GENE Tate [address] [place] [address] PCP - General Family Medicine 04/22/22 documented as of this encounter
--- OUTSIDE RECORDS SUMMARY | 2024-11-27 14:15 | XMS_ITS | Encounter Summary ---
Author Organization [employer] Address [address] [facility] 7t [place] [address] Care Team Providers Care Rn Lab Name Role Phone Lea Santiago TREATING ENGINEER Primary Care Provider [phone] Reason for Visit * Reason Onset Date Comments Med Refill 11/04/2023 Encounter Details Date Type Department Care Team (Late st Contact Info) Description 11/04/2023 Refill [facility] 230 [place] [address] Jody Ingram DO [address] [place], [place] [phone] Social History Tobacco Use Types Packs/Day Years [...] documented as of this encounter Care Teams Rn Lab Relationship Specialty Start Date End Date Lea Santiago FNP [address] [place] [address] PCP - General Family Medicine 04/22/22 documented as of this encounter
--- OUTSIDE RECORDS SUMMARY | 2024-11-27 14:15 | XMS_ITS | Encounter Summary ---
Demographics Address [address] [facility] [address] [place] [address] Mobile Phone Work Phone Email Address Preferred Language en Marital Status Single Bahai Affiliation Unknown Race Other Race Ethnic Group or Author Organization [employer] Address [address] [facility] 7t [place] [address] Care Team Providers Care Car Greaser Name Role Phone Lea Santiago CUSHION COVER INSPECTOR Primary Care Provider [phone] Encounter Details Date Type Department Care Team (Latest Contact Info) Description 11/27/2024 Travel Social History Tobacco Use Types Packs/Day Years [...] documented as of this encounter Care Teams Car Greaser Relationship Specialty Start Date End Date Lea Santiago FNP [address] [place] [address] PCP - General Family Medicine 04/22/22 documented as of this encounter
--- OUTSIDE RECORDS SUMMARY | 2024-11-27 14:15 | XMS_ITS | Data Portability ---
Author Organization [place] [facility], [facility] Address [address] [address] Care Team Providers Care Wool Carder Name Role Phone COSTA ROBERTO Primary Care Provider [phone] Assessment No assessment recorded. Plan of Treatment Reminders Order Date Submit Date Provider Last Modified By Organization Details Last Modified Time Details Appointments None recorded. Lab None recorded. Referral None recorded. Procedures None recorded. Surgeries None recorded. Imaging audiogram 2023 024 [email or web address] Not available 08:49:34 Medication Orders None recorded. Patient TargetsNo targets recorded. Patient InstructionsNo instructions recorded. Reason for Referral None Reported. Results Created Date Observation Date Name Description Value Unit Range Abnormal Flag Note LastModifiedBy Organization Detail LastModifiedTime 02/05/20 24 audio gram No observ ation record ed. BARCODE Not Available 2023 13:04:49 06/02/20 24 audio gram No observ ation record ed. [email or web address] Not Available 03/2024 14:42:47 Result Notes None recorded. Problems Name Problem SNOMED Code Status Onset Date Resolution Date Notes Provider Name and Address Organization Details Recorded Time Abnormal auditory perception 73840414 Active 024 Sunitha leach [facility] 4 12:19:17 Problem Notes None recorded. Procedures Surgical History Date Name Laterality Status Provider Name and Address Organization Details Recorded Time 06/02/20 24 Air & Speech Audio with Tymps (40932, 31132 & 48635) completed WILLY CADE, ANTON [address] [facility], [place], [address], [facility] 06/02/2024 11:15:23 02/04/20 24 Air only Audio (16471) completed Sunitha [facility] 02/04/2024 12:18:55 02/04/20 24 OAE (distortion product, limited - 52022) completed Sunitha [facility] 02/04/2024 12:19:03 02/04/20 24 Tympanometry (89753) completed Sunitha [facility] 02/04/2024 12:18:39 02/04/20 24 SRT & Speech Recognition (49952) completed Sunitha [facility] 02/04/2024 12:18:31 Imaging Results Imaging Date Name Status [facility] by [facility] Details LastModified Time 02/05/2024 audiogram completed BARCODE Information no t available 02/05/2024 13:04:49 06/02/2024 audiogram completed [email or web address] Information n ot available 06/02/2024 14:42:47 Procedure Notes None recorded. Medical Equipment None Reported. Medications Name Sig Start Date Stop Date Status Note LastModified by Organization Details LastModified Time metformin 500 mg tablet TAKE 1 TABLET BY MOUTH TWICE DAILY IN THE MORNING AND IN THE EVENING WITH MEALS active Not Available Not Available N ot Available doxycycline hyclate 100 mg capsule TAKE 1 CAPSULE BY MOUTH TWICE A DAY FOR 7 DAYS active Not Available Not Available No t Available acetaminophe n 500 mg tablet TAKE 2 TABLETS BY MOUTH EVERY 6 HOURS IF NEEDED FOR MODERATE PAIN OR FEVER active Not Available Not Available No t Available cephalexin 500 mg capsule TAKE 1 CAPSULE BY MOUTH FOUR TIMES A DAY FOR 7 DAYS active Not Available Not Available N ot Available triamcinolon e acetonide 55 mcg nasal spray aerosol USE 2 SPRAYS IN EACH NOSTRIL ONCE DAILY IN THE MORNING active Not Available Not Available No t Available capsaicin 0.025 % topical cream APPLY TOPICALLY TO THE AFFECTED AREA(S) TWICE DAILY active Not Available Not Available Not Available ibuprofen 600 mg tablet TAKE 1 TABLET BY MOUTH 3 TIMES DAILY. active Not Available Not Available No t Available loratadine 10 mg tablet TAKE 1 TABLET BY MOUTH EVERY DAY IN THE MORNING active Not Available Not Available No t Available naproxen 500 mg tablet TAKE 1 TABLET BY MOUTH TWICE DAILY NEEDED FOR MODERATE PAIN active Not Available Not Available No t Available Ventolin HFA 90 mcg/actuatio n aerosol inhaler INHALE 2 PUFFS BY MOUTH EVERY 6 HOURS NEEDED FOR WHEEZING active Not Available Not Available No t Available Alcohol Prep Pads USE DIRECTED TO CLEAN SKIN DIRECTED active Not Available Not Available Not Available duloxetine 30 mg capsule,jian yed release TAKE 1 CAPSULE BY MOUTH EVERY DAY FOR 1 WEEK THEN INCREASE TO 2 CAPSULE EVERY DAY DO NOT BREAK, CRUSH, DISSOLVE OR CHEW active Not Available Not Available No t Available FreeStyle Lite Strips USE DIRECTED TO TEST BLOOD SUGAR FOUR TIMES DAILY active Not Available Not Available Not Available FreeStyle [place] Lite kit USE DIRECTED TO TEST BLOOD SUGAR FOUR TIMES DAILY active Not Available Not Available Not Available diclofenac 1 % topical gel APPLY 2 GRAMS TOPICALLY TO THE AFFECTED AREA TWICE A DAY active Not Available Not Available No t Available Eye Itch Relief 0.025 % (0.035 %) drops INSTILL 1 DROP IN EACH EYE TWICE DAILY active Not Available Not Available Not Available TRUEplus Lancets 33 gauge USE DIRECTED TO TEST BLOOD SUGAR FOUR TIMES DAILY active Not Available Not Available Not Available Trulicity 1.5 mg/0.5 mL subcutaneous pen injector INJECT 1.5 MG UNDER THE SKIN 1 (ONE) TIME PER WEEK. active Not Available Not Available No t Available Trulicity 0.75 mg/0.5 mL subcutaneous pen injector INJECT ONE PEN (=0.75MG) SUBCUTANEOU SLY ONCE A WEEK DIRECTED active Not Available Not Available No t Available Compact Space Chamber USE WITH INHALER DIRECTED active Not Available Not Available No t Available Paxlovid 300 mg (150 mg x 2)-100 mg tablets in a dose pack TAKE 2 TABLETS (300 MG) OF NIRMATRELVI R & 1 TABLET (100 MG) OF RITONAVIR BY MOUTH TWICE DAILY FOR 5 DAYS active Not Available Not Available N ot Available Vitals Date Recorded Body height Body mass index (BMI) Body weight Provider Name and Address Organization Details Last Updated DateTime 06/02/2024 162.56 cm 25.7 kg/m2 16968.86 g Edgardo Lo [facility] 06/02/2024 11:29:17 Date Recorded Body height Provider Name an d Address Organization Details Last Updated DateTime 02/04/2024 162.56 cm Edgardo Lo [facility] 02/04/2024 12:33:20 Social History None recorded. Functional Status None recorded. Mental Status None recorded. Family History Nothing Reported. Medical History No medical history recorded. Gynecological HistoryNo gynecological history recorded. Obstetrics History GPAL:G 0 P 0 0 0 0 Past Encounters Encounter ID Performer Location Encounter Start Date Encounter Closed Date Diagnosis/Indication Diagnosis SNOMED-CT Code Diagnosis ICD10 Code Diagnosis Note [id number] JASWANT FONSECA MD [facility] [address] [address] 02/04/2024 11:18:05 02/04/2024 12:37:47 Abnormal auditory perception 53878810 H93.299 Audiologic al evaluation results:Ri ght ear:concer ns of non-organi c hearing loss, see audiogramL eft ear:concer ns of non-organi c hearing loss, see audiogram Tympanomet ry:Right Ear:{{Type A Type As Type Ad Type C* Type C, shallow & rounded Ty pe B Type B with large volume Cou ld not maintain a hermetic seal}}Left Ear:{{Type A Type As Type Ad Type C* Type C, shallow & rounded Ty pe B Type B with large volume Cou ld not maintain a hermetic seal}}Dist ortion Product Otoacousti c Emission Testing Results:Ri ght Ear:Normal at 1.5, 2, 3, 4, 5, 6, 7, 8 kHzLeft Ear:Normal at 1.5, 2, 3, 4, 5, 6, 7, 8 kHzThe presence of a normal otoacousti c emission is consistent with normal outer hair cell function at the test frequency. Reliabilit y was poor today. I will bring back to repeat the audiogram to confirm hearing loss before moving to a hearing aid evaluation . Ear exam was normal today. JASWANT FONSECA MD [facility] [address] [id number] 06/02/2024 10:35:16 06/02/2024 11:58:37 Abnormal auditory perception [id number] H93.299 Audiologic al evaluation results: 06/02/2024 ight ear:Normal hearing with excellent speech recognitio nLeft ear:Normal hearing with excellent speech recognitio n Tympanomet ry:Right Ear:{{Type A* Type As Type Ad Type C Type C, shallow & rounded Ty pe B Type B with large volume Cou ld not maintain a hermetic seal}}Left Ear:{{Type A* Type As Type Ad Type C Type C, shallow & rounded Ty pe B Type B with large volume Cou ld not maintain a hermetic seal}} Audio was normal today. I gave reassuranc e hearing is normal. I suggested avoiding situations with background noise when she feels she has trouble hearing. She may f/u as needed. Health Concerns Section Related Observation LastModified by Organization Detai ls LastModified Time None Recorded Concern Status LastModified by Organization Details LastModified Time None Recorded Advance Directives Directive None Recorded Payers Encounter Date Sequence Insurance Name Policy Number Policy Mesa Covered Member ID Mesa Member ID Guarantor Name 02/04/2024 1 [place] [facility] Yao Ugarte [id number] Yao Ugarte 06/02/2024 1 [place] [facility]ao Ugarte [id number] [facility] Notes Date Note Type Note Provider Name and Address Organization Details Recorded Time 02/04/2024 text/html She reports longstanding hearing loss worse in the last few years. She has trouble when her back is turned to the speaker. Denies tinnitus. Has occasional ear pain. No otorrhea. Audio today showed mild hearing loss across all frequencies in both ears but reliability was poor. JASWANT FONSECA MD [address] [place] [address], [phone], [facility] - [facility] 02/04/2024 12:36:28 06/02/2024 text/html concern for hearing loss. Was seen 01/2024 with hearing concern. Audio was not very reliable. She reports she still has trouble hearing in some situations. Audio today showed normal hearing. Her reliability was fair. JASWANT FONSECA MD [address] [place] [address], [phone], [facility] - [facility] 06/02/2024 12:45:33 OBGyn Episode No OBEpisode recorded.
--- OUTSIDE RECORDS SUMMARY | 2024-11-27 14:16 | XMS_ITS | Encounter Summary ---
Author Organization [employer] Address 75 [facility] 7t [place] [address] Care Team Providers Care Inside Finisher Name Role Phone Lea Santiago MACHINE SCALLOP CUTTER Primary Care Provider [phone] Reason for Visit * Reason Comments Med Refill Encounter Details Date Type Department Care Team (Late st Contact Info) Description 05/21/2023 Refill [facility] 230 [place] [address] Rizwan Almanzar MD [address] [place] [address] Social History Tobacco Use Types Packs/Day Years Used Date Smoking Tobacco: Former Cigarettes Q uit: 12/01/2022 Passive Smoke Exposure: Past Smokeless Tobacco: Never Alcohol Use Standard Drinks/Week Comments Not Currently 0 (1 standard drink = 0.6 oz pur e alcohol) Depression Answer Date Recorded Patient Health Questionnaire-9 Score 0 05/13/2023 Depression Answer Date Recorded Patient Health Questionnaire-2 Score 0 05/13/2023 Comments Unknown Sex and Gender Information Value [...] Noted Time PHQ-9 Depression Total Score: 0 05/13/20 23 9:11 AM EDT documented as of this encounter Care Teams Inside Finisher Relationship Specialty Start Date End Date [place] GENE Tate [address] [place] [address] PCP - General Family Medicine 04/22/22 documented as of this encounter
--- OUTSIDE RECORDS SUMMARY | 2024-11-27 14:16 | XMS_ITS | Encounter Summary ---
Author Organization [employer] Address 75 [facility] 7t [place] [address] Care Team Providers Care Refuse And Recycling Worker Name Role Phone Patterson [facility] Primary Care Provider [phone] Reason for Visit * Reason Comments sick onsite Encounter Details Date Type Department Care Team (Late st Contact Info) Description 11/27/2024 11:00 AM EDT Office Visit [facility] 230 [place] [address] [facility] 230 [place], [place] [phone] Type 2 diabetes mellitus without complication, without long-term current use of insulin (CMS/HCC) (Primary Dx); Chronic pain of both feet Social History Tobacco Use Types Packs/Day Years [...] the past 12 months, has t he [employer] gas, oil or water [employer] threatened to shut off services in your [...] AM EDT documented as of this encounter Last Filed Vital Signs Vital Sign Reading Time Taken Comments Blood Pressure 124/82 11/27/2024 11:00 AM EDT Pulse 76 11/27/2024 11:00 AM EDT Temperature 36.2 ??C (97.2 ??F) 11/27/2024 1 1:00 AM EDT Respiratory Rate 20 11/27/2024 11:0 0 AM EDT Oxygen Saturation - - Inhaled Oxygen Concentration - - Weight 91.5 kg (201 lb 12.8 oz) 025 11:00 AM EDT Height 162.6 cm (5' 4 ) 11/27/2024 11:0 0 AM EDT Body Mass Index 34.64 11/27/2024 11:00 AM EDT documented in this encounter Plan of Treatment Scheduled Orders Name Type Priority Associated Diagnoses Orde r Schedule Hemoglobin A1c Lab Routine Type 2 diabetes mellitus without complication, without long-term current use of insulin ([facility]) Expected: 11/27/2024 (Approximate), Expires: 11/27/2025 Basic Metabolic Panel Lab Routine Type 2 diabetes mellitus without complication, without long-term current use of insulin (CMS/HCC) Expected: 11/27/2024 (Approximate), Expires: 11/27/2025 Sed Rate by Modified Westergren Lab Routine Chronic pain of both feet Expected: 11/27/2024, Expires: 11/27/2025 C-reactive Protein Lab Routine Chronic pain of both feet Expected: 11/27/2024 (Approximate), Expires: 11/27/2025 Rheumatoid Factor Lab Routine Chronic pain of both feet Expected: 11/27/2024, Expires: 11/27/2025 Cyclic Citrullinated Peptide (CCP) Antibody (IgG) Lab Routine Chronic pain of both feet Expected: 11/27/2024 (Approximate), Expires: 11/27/2025 BORIS Screen,IFA, with Reflex to Titer and Pattern Lab Routine Chronic pain of both feet Expected: 11/27/2024 (Approximate), Expires: 11/27/2025 XR Foot 3+ Views Left Imaging Routine Chronic pain of both feet Expected: 11/27/2024, Expires: 11/27/2025 XR Foot 3+ Views Right Imaging Routine Chronic pain of both feet Expected: 11/27/2024, Expires: 11/27/2025 documented as of this encounter Visit Diagnoses Diagnosis Type 2 diabetes mellitus without complication, without long-term current use of insulin (CMS/[facility])- Primary Chronic pain of both feet documented in this encounter Additional Health Concerns Assessment Noted Time PHQ-9 Depression Total Score: 0 07/10/20 23 10:14 AM EST documented as of this encounter Care Teams Refuse And Recycling Worker Relationship Specialty Start Date End Date Lea Santiago FNP [address] [place] [address] PCP - General Family Medicine 04/22/22 documented as of this encounter
--- OUTSIDE RECORDS SUMMARY | 2024-11-27 14:16 | XMS_ITS | Encounter Summary ---
Author Organization [employer] Address 75 [facility] 7t [place] [address] Care Team Providers Care Vp Delivery Name Role Phone Lea Santiago TRANSMISSION REBUILDER Primary Care Provider [phone] Reason for Visit * Reason Onset Date Comments Med Refill 01/27/2024 Encounter Details Date Type Department Care Team (Late st Contact Info) Description 01/27/2024 Refill [facility] 230 [place], [place] [phone] Name, MD Tesfaye 230 [place] [address] Mild intermittent asthma without complication Social History Tobacco Use Types Packs/Day Years [...] as of this encounter Visit Diagnoses Diagnosis Mild intermittent asthma without complication documented in this encounter Additional Health Concerns Assessment Noted Time PHQ-9 Depression Total Score: 0 07/10/20 23 10:14 AM EST documented as of this encounter Care Teams Vp Delivery Relationship Specialty Start Date End Date Lea Santiago FNP [address] [place] [address] PCP - General Family Medicine 04/22/22 documented as of this encounter
--- OUTSIDE RECORDS SUMMARY | 2024-11-27 14:16 | XMS_ITS | Encounter Summary ---
Author Organization [employer] Address [address] [facility] 7t [place] [address] Care Team Providers Care Guide Travel Name Role Phone Lea Santiago [facility] Primary Care Provider [phone] Reason for Visit * Reason Onset Date Comments Med Refill 11/04/2023 Encounter Details Date Type Department Care Team (Late st Contact Info) Description 11/04/2023 Refill [facility] [address] [place] [address] Rhonda Orr FNP 230 [place], [place] [phone] Social History Tobacco Use Types Packs/Day Years [...] documented as of this encounter Care Teams Guide Travel Relationship Specialty Start Date End Date Lea Santiago FNP [address] [place] [address] PCP - General Family Medicine 04/22/22 documented as of this encounter
--- OUTSIDE RECORDS SUMMARY | 2024-11-27 14:16 | XMS_ITS | Encounter Summary ---
Author Organization [employer] Address 75 [facility] 7t [place] [address] Care Team Providers Care Coffee Host Name Role Phone [facility] Primary Care Provider [phone] Reason for Visit * Reason Comments Med Refill Encounter Details Date Type Department Care Team (Late st Contact Info) Description 02/18/2023 Refill [facility] 230 [place] [address] [facility] 230 [place] [address] Social History Tobacco Use Types Packs/Day Years Used Date Smoking Tobacco: Former Cigarettes Q uit: 12/01/2022 Passive Smoke Exposure: Past Smokeless Tobacco: Never Alcohol Use Standard Drinks/Week Comments Not Currently 0 (1 standard drink = 0.6 oz pur e alcohol) Comments Unknown Sex and Gender Information Value Date Recorded Sex Assigned at Female 06/25/2022 10:14 AM EDT Legal Sex Female 10:14 AM EDT Gender Identity Female 06/25/2022 10:14 AM EDT Sexual Orientation Straight 06/25/2022 10 :14 AM EDT COVID-19 Exposure Response Date Recorded In the last 10 days, have yo u been in contact with someone who was confirmed or suspected to have Coronavirus/COVID-19? No / Unsure 02/18/2023 9:18 AM EDT documented as of this encounter Plan of Treatment Not on file documented as of this encounter Visit Diagnoses Not on filedocumented in this encounter Additional Health Concerns Assessment Noted Time PHQ-9 Depression Total Score: 0 02/19/20 23 4:20 PM EDT documented as of this encounter Care Teams Coffee Host Relationship Specialty Start Date End Date Lea Santiago FNP 230 [place] [address] PCP - General Family Medicine 04/22/22 documented as of this encounter
--- OUTSIDE RECORDS SUMMARY | 2024-11-27 14:16 | XMS_ITS | Encounter Summary ---
Author Organization [employer] Address [address] [facility] 7t [place] [address] Care Team Providers Care Ibm Mainframe Developer Name Role Phone [facility] Primary Care Provider [phone] Reason for Visit * Reason Comments Med Change Request Encounter Details Date Type Department Care Team ([facility] st Contact Info) Description 02/18/2023 Refill [facility] 230 [place] [address] [facility] 230 [place] [address] Type 2 diabetes mellitus without complication, without long-term current use of insulin ([facility]) Social History Tobacco Use Types Packs/Day Years [...] complication, without long-term current use of insulin ([facility]) documented in this encounter Additional Health Concerns Assessment Noted Time PHQ-9 Depression Total Score: 0 02/19/20 23 4:20 PM EDT documented as of this encounter Care Teams Ibm Mainframe Developer Relationship Specialty Start Date End Date Lea Santiago FNP [address] [place] [address] PCP - General Family Medicine 04/22/22 documented as of this encounter
--- OUTSIDE RECORDS SUMMARY | 2024-11-27 14:16 | XMS_ITS | Encounter Summary ---
Author Organization [employer] Address 75 [facility] 7t [place] [address] Care Team Providers Care Wheel Installer Name Role Phone Lea Santiago SNAG GRINDER Primary Care Provider [phone] Reason for Visit * Reason Onset Date Comments Med Refill 11/04/2023 Encounter Details Date Type Department Care Team (Late st Contact Info) Description 11/04/2023 Refill [facility] [address] [place], [place] [phone] Name, MD Tesfaye [address] [place] [address] Mild intermittent asthma without complication Social History [...] documented as of this encounter Care Teams Wheel Installer Relationship Specialty Start Date End Date Lea Santiago FNP [address] [place] [address] PCP - General Family Medicine 04/22/22 documented as of this encounter
--- OUTSIDE RECORDS SUMMARY | 2024-11-27 14:16 | XMS_ITS | Encounter Summary ---
Author Organization [employer] Address 75 [facility] 7t [place] [address] Care Team Providers Care Fur Blower Operator Name Role Phone [place] [facility] Primary Care Provider [phone] Reason for Visit * Reason Onset Date Comments Nurse Triage 11/24/2024 Encounter Details Date Type Department Care Team ([facility] st Contact Info) Description 11/24/2024 Telephone [facility] MED[facility] [address] [place] [address] [facility] [address] [place], [place] [phone] Nurse Triage Social History Tobacco Use Types Packs/Day Years [...] got money to buy more: Sometimes True 10/21/ 2024 Within the past 12 months,th e food [...] encounter Miscellaneous Notes * Telephone Encounter - Stephenie Dimas RN - 11/24/2024 12:32 PM EDT Call returned to Yao Ugarte to triage below. Reports having bilateral foot pain x2 months. Pt denies any swelling, rash or bruising. Mild redness. Pt using Topical Diclofenac and OTC ibuprofen with mild relief. Pt does endorse intermittent pain of join of great big toe. Pt advised of disposition, agrees to sick on site with PCP this week. Protocol Used: Foot Pain (Adult) Protocol-Based Disposition: See in Office or Video Visit within 3 Days Future Appointments Date Time Provider Department Center 11/27/2024 11:00 AM [facility] Insurance verified as active per Real Time Eligibility in [facility]. Video visit offer not recorded Positive Triage Question: * Pain in the big toe joint * All higher-acuity triage questions were negative Care Advice Discussed: * Reassurance and Education - Foot Pain * Reasons To Call Back - You become worse * Telephone Encounter - Dawson Ruffin - 11/24/2024 12:25 PM EDT Symptom: Foot or Ankle Pain - Not From Injury Outcome: Schedule an urgent appointment (within 1 hour) or talk to a nurse or provider soon Reason: Trouble walking The caller accepted this outcome. Contact pt at [phone] documented in this encounter Plan of Treatment Not on file documented as of this encounter Visit Diagnoses Not on filedocumented in this encounter Additional Health Concerns Assessment Noted Time PHQ-9 Depression Total Score: 0 07/10/20 23 10:14 AM EST documented as of this encounter Care Teams Fur Blower Operator Relationship Specialty Start Date End Date Lea Santiago FNP [address] [place] [address] PCP - General Family Medicine 04/22/22 documented as of this encounter
[2024-11-27 14:17] LABS: Erythrocyte Sedimentation Rate 40 MM/HR (0-20)
[2024-11-27 14:20] LABS: Estimated Average Glucose 166 mg/dL; Hemoglobin A1C 205.1146 umol/L; Hemoglobin A1c % 7.4 % (<6.0); Total Hemoglobin (HGBA1C) 3581.2961 umol/L
[2024-11-27 14:49] LABS: Anion Gap 15 (12-20); Blood Urea Nitrogen 11 mg/dL (9-16); C Reactive Protein 4.45 mg/dL (< or = 0.50); Calcium 9.8 mg/dL (8.4-10.2); Carbon Dioxide 24 mmol/L (22-29); Chloride 104 mmol/L (96-108); Cholesterol 237 mg/dL (<200); Estimated Glomerular Filt Rate > 60; Glucose Random 138 mg/dL (60-115); HDL Cholesterol 49 mg/dL (>40); LDL Cholesterol Calculated 139 mg/dL (<100); Potassium 3.8 mmol/L (3.3-5.1); Rheumatoid Factor < 13.0 IU/mL (<15.0); Sodium 139 mmol/L (135-145); Triglycerides 246 mg/dL (<150)
[2024-12-01 06:44] LABS: Cyclic Citrullinated Peptide <16 UNITS
[2024-12-03 13:39] LABS: Anti Nuclear Antibody Screen NEGATIVE (NEGATIVE)
== END 2024-11-27 12:23 | disposition home or self-care (01) ==
LOC: HO.HHCL 12:22
PROVIDERS: Visit Provider Registered Nurse
DX: E11.9 Type 2 diabetes mellitus without complications (principal); G89.29 Other chronic pain; M79.672 Pain in left foot; M79.671 Pain in right foot
CPT/HCPCS: 36415; 80048; 80061; 83036; 85652; 86038; 86140; 86200; 86431

== ENCOUNTER 2025-06-08 18:52 | Outpatient (REF) | payer MEDICAID, SELFPAY ==
--- OUTSIDE RECORDS SUMMARY | 2025-06-08 09:40 | XMS_ITS | Encounter Summary ---
Author Organization [employer] Address 75 [facility] 7t [place] [address] Care Team Providers Care Hot Plate Plywood Press Offbearer Name Role Phone Lea Santiago SPRAYER AUTOMATIC SPRAY MACHINE Primary Care Provider [phone] Reason for Visit * Reason Comments Vaginal Discharge Encounter Details Date Type Department Care Team ([facility] Contact Info) Description 06/08/2025 9:40 AM EDT Office Visit [facility] 230 [place] [address] Neha Roque MD [address] [place] [address] Vaginal bleeding (Primary Dx); Vaginal discharge Social History Tobacco Use Types Packs/Day Years [...] Reading Time Taken Comments Blood Pressure 124/82 06/08/2025 10:40 AM EDT Pulse 120 06/08/2025 10:40 AM EDT Temperature 36.7 C (98 F) 06/08/2025 9:54 AM EDT Respiratory Rate 16 06/08/2025 9:54 AM EDT Oxygen Saturation 99% 06/08/2025 9:54 AM EDT Inhaled Oxygen Concentration - - Weight 90.7 kg (200 lb) 06/08/2025 9:54 AM EDT Height - - Body Mass Index 34.33 01/05/2025 11:26 AM EDT documented in this encounter Progress Notes * Neha Roque MD - 06/08/2025 9:40 AM EDT TRISHA Ugarte is a 30 y.o. female patient of [facility] who presents for pelvic pain and passing blood clots. JOSELIN Samayoa was well until last evening when she started having constant pelvic pain that radiates to her back. She had not had prior trauma or intercourse. After the pain started, she started having vaginal bleeding that was much heavier than her normal periods. Then she started passing very large clots repeatedly. She does not normally pass clots like this. Her LMP was one month ago and she normally has her period monthly. She does not take any contraceptives, is not sexually active currently, noIUD or contraceptive. She was recently treated with methotrexate 10 mg weekly for one week then 15 mg weekly for one week. She started feeling short of breath, so her shaker tender, Dr. Ascencio, disc ontinued the medication. He ordered sulfasalazine but she has not taken it. She denies bleeding or bruising. Review of Systems Constitutional: Positive for fatigue. Negative for fever. Genitourinary: Positive for pelvic pain and vaginal bleeding. Negative for dyspareunia, hematuria and urgency. Neurological: Positive for light-headedness. OBJECTIVE Vitals: 06/08/25 0954 BP: 138/84 BP Location: Right arm Patient Position: Sitting BP Cuff Size: Adult Pulse: 69 Resp: 16 Temp: 98 ??F (36.7 ??C) TempSrc: Temporal SpO2: 99% Weight: 200 lb (90.7 kg) BP 124/82 Pulse (!) 120 Temp 98 ??F (36.7 ??C) (Temporal) Resp 16 Wt 200 lb (90.7 kg) SpO2 99% BMI 34.33 kg/m?? ' Physical Exam Constitutional: Appearance: She is ill-appearing. HENT: Head: Normocephalic. Mouth/Throat: Mouth: Mucous membranes are moist. Eyes: General: No scleral icterus. Pupils: Pupils are equal, round, and reactive to light. Cardiovascular: Rate and Rhythm: Regular rhythm. Tachycardia present. Pulses: Normal pulses. Heart sounds: Normal heart sounds. Pulmonary: Effort: Pulmonary effort is normal. Breath sounds: Normal breath sounds. Abdominal: General: Abdomen is flat. Bowel sounds are normal. Palpations: There is no mass. Tenderness: There is abdominal tenderness (tenderness to percussion RLQ, suprapubic, LLQ). There isright CVA tenderness. There is no left CVA tenderness, guarding or rebound. Skin: Capillary Refill: Capillary refill takes less than 2 seconds. Neurological: General: No focal deficit present. Mental Status: She is alert. Psychiatric: Mood and Affect: Mood normal. Behavior: Behavior normal. Assessment/Plan Assessment/Plan Diagnoses and all orders for this visit: Vaginal bleeding: Passing large amounts of blood and large clots and having pelvic pain and tenderness. Urine test is negative today and she reports not being sexually active, prior LMP 1 month ago. She has always has normal Pap smears. She had been on methotrexate for 2 weeks so I am concerned about thrombocytopenia. I have referred her urgently to [facility] and given report to them. Vaginal discharge - Bacterial Vaginosis - Chlamydia/N. Gonorrhoeae RNA, TMA, Urogenitial - POCT urinalysis dipstick manually resulted (CPT 26110) - POCT , urine manually resulted documented in this encounter Plan of Treatment Scheduled Orders Name Type Priority Associated Diagnoses Orde r Schedule Bacterial Vaginosis Microbiology Routine Vaginal discharge Ordered: 06/08/2025 Chlamydia/N. Gonorrhoeae RNA, TMA, Urogenitial Microbiology Routine Vaginal discharge Ordered: 06/08/2025 documented as of this encounter Procedures Procedure Name Priority Date/Time Associated Diagnosis Comments POCT , URINE Routine 06/08/2025 10:28 AM EDT Vaginal discharge POCT URINALYSIS DIPSTICK Routine 06/08/2025 10:10 AM EDT Vaginal discharge documented in this encounter Results * POCT , urine manually resulted (06/08/2025 10:28 AM EDT) Preg Test, Ur Negative Negative, Indeterminate, None Detected, Invalid, Specimen unsatisfactory for evaluation, Weakly Positive, 2+ Urine 06/08/2025 10:2 8 AM EDT Neha Roque MD POINT OF CARE TEST ENTER/EDIT ORDERABLES Final Result * (ABNORMAL) POCT urinalysis dipstick manually resulted (CPT 56269) (06/08/2025 10:10 AM EDT) Color, UA [facility] Clarity, UA Clear Glucose, UA Negative Bilirubin, UA Few 15 Comment:Small Ketones, UA Positive Comment:15Mg Spec Grav, UA 1.030 Blood, UA Positive(A) Negative, None Detected Comment:Large pH, UA 5.5 Protein, UA 2+ 125++ Comment:100Mg Urobilinogen, UA 0.2 Leukocytes, UA Negative Negative, Rare, Trace Nitrite, UA Negative Negative, None Detected Appearance, UA OK Urine (Urine, Random) 06/08/2025 10:10 AM EDT Neha Roque MD POINT OF CARE TEST ENTER/EDIT ORDERABLES Final Result documented in this encounter Visit Diagnoses Diagnosis Vaginal bleeding- Primary Other specified noninflammatory disorder of vagina Vaginal discharge Leukorrhea, not specified as infective documented in this encounter Additional Health Concerns Assessment Noted Time PHQ-9 Depression Total Score: 0 07/10/20 23 10:14 AM EST documented as of this encounter Care Teams Hot Plate Plywood Press Offbearer Relationship Specialty Start Date End Date Lea Santiago FNP [address] [place] [phone] PCP - General Family Medicine 04/22/22 documented as of this encounter
--- OUTSIDE RECORDS SUMMARY | 2025-06-08 18:55 | XMS_ITS | Encounter Summary ---
Author Organization [employer] Address 75 [facility] 7t [place] [address] Care Team Providers Care Medical Practice Assistant Name Role Phone Lea Santiago RETURN AGENT Primary Care Provider [phone] Reason for Visit * Reason Onset Date Comments Med Refill 11/04/2023 Encounter Details Date Type Department Care Team (Late st Contact Info) Description 11/04/2023 Refill [facility] [address] [place] [address] Jody Ingram DO [address] [place], [place] [phone] Social History Tobacco Use Types Packs/Day Years [...] documented as of this encounter Care Teams Medical Practice Assistant Relationship Specialty Start Date End Date Lea Santiago FNP [address] [place] [address] PCP - General Family Medicine 04/22/22 documented as of this encounter
--- OUTSIDE RECORDS SUMMARY | 2025-06-08 18:55 | XMS_ITS | Data Portability ---
Author Organization [place] - [facility], Allergy Address [address] [facility] [address] [place] [address] Care Team Providers Care Security Flex Utility Officer Name Role Phone COSTA ROBERTO Primary Care Provider Assessment No assessment recorded. Plan of Treatment Reminders Order Date Submit Date Provider Last Modified By Organization Details Last Modified Time Details Appointments None recorded. Lab None recorded. Referral None recorded. Procedures None recorded. Surgeries None recorded. Imaging audiogram 2023 024 [email or web address] Not available 08:49:34 Medication Orders None recorded. Patient TargetsNo targets recorded. Patient InstructionsNo instructions recorded. Reason for Referral None Reported. Results Created Date Observation Date Name Description Value Unit Range Abnormal Flag Note LastModifiedBy Organization Detail LastModifiedTime 02/05/20 24 audio gram No observ ation record ed. BARCODE Not Available 2023 13:04:49 06/02/20 24 audio gram No observ ation record ed. [email or web address] Not Available 03/2024 14:42:47 Result Notes None recorded. Problems Name Problem SNOMED Code Status Onset Date Resolution Date Notes Provider Name and Address Organization Details Recorded Time Abnormal auditory perception [id number] Active 024 Sunitha leach [facility] 4 12:19:17 Problem Notes None recorded. Procedures Surgical History Date Name Laterality Status Provider Name and Address Organization Details Recorded Time 06/02/20 24 Air & Speech Audio with Tymps - 54193, 10229 & 14227 completed WILLY CADE, AUD [address] [facility], [place], [address], [facility] 06/02/2024 11:15:23 02/04/20 24 Air only Audio - 04995 completed Sunitha [facility] 02/04/2024 12:18:55 02/04/20 24 OAE distortion product, limited - 96428 completed Sunitha [facility] 02/04/2024 12:19:03 02/04/20 24 Tympanometry - 32682 completed Sunitha [facility] 02/04/2024 12:18:39 02/04/20 24 SRT & Speech Recognition - 68844 completed Sunitha [facility] 02/04/2024 12:18:31 Imaging Results None recorded. Procedure Notes None recorded. Medical Equipment None [...] Not Available Not Available Not Available FreeStyle [place] Lite kit USE DIRECTED TO TEST BLOOD [...] ot Available Vitals Date Recorded Body height Provider Name an d Address Organization Details Last Updated DateTime 02/04/2024 162.56 cm Edgardo Lo [place] - [facility] 02/04/2024 12:33:20 Date Recorded Body height Body mass index (BMI) Body weight Provider Name and Address Organization Details Last Updated DateTime 06/02/2024 162.56 cm 25.7 kg/m2 69762.86 g Edgardo Lo [place] - [facility] 06/02/2024 11:29:17 Social History None recorded. Functional Status None recorded. Mental Status None recorded. Family History Nothing Reported. Medical History No medical history recorded. Gynecological HistoryNo gynecological history recorded. Obstetrics History GPAL:G 0 P 0 0 0 0 Past Encounters Encounter ID Performer Location Encounter Start Date Encounter Closed Date Diagnosis/Indication Diagnosis SNOMED-CT Code Diagnosis ICD10 Code Diagnosis IMO Codes Diagnosis Note [id number] JASWANT FONSECA MD [facility] [address] [address] 02/04/2024 11:18:05 02/04/2024 12:37:47 Abnormal auditory perception 13696209 H93.299 Audiologic al evaluation results:Ri ght ear:concer ns of non-organi c hearing loss, see audiogramL eft ear:concer ns of non-organi c hearing loss, see audiogram Tympanomet ry:Right Ear:Type CLeft Ear:Type CDistortio n Product Otoacousti c Emission Testing Results:Ri ght [...] normal today. JASWANT FONSECA MD [facility] [address] [address] 06/02/2024 10:35:16 06/02/2024 11:58:37 Abnormal auditory perception 61607974 H93.299 Audiologic al evaluation results: 06/02/2024 ight ear:Normal hearing with excellent speech recognitio nLeft ear:Normal hearing with excellent speech recognitio n Tympanomet ry:Right Ear:Type ALeft Ear:Type A Audio was normal today. I gave reassuranc e hearing is normal. I suggested avoiding situations with background noise when she feels she has trouble hearing. She may f/u as needed. Health Concerns Section Related Observation LastModified by Organization Detai ls LastModified Time None Recorded Concern Status LastModified by Organization Details LastModified Time None Recorded Advance Directives Directive None Recorded Payers Insurance Date Sequence Insurance Name Policy Number Policy Mesa Covered Member ID Mesa Member ID Guarantor Name 05/30/2024 1 [place] Yao Ugarte [id number] Yao Ugarte Notes Date Note Type Note Provider Name and Address Organization Details Recorded Time 02/04/2024 text/html ROS as noted in the HPI She reports longstanding hearing loss worse in the last few years. She has trouble when her back is turned to the speaker. Denies tinnitus. Has occasional ear pain. No otorrhea. Audio today showed mild hearing loss across all frequencies in both ears but reliability was poor. JASWANT FONSECA MD [address] [place] [address], [id number], [facility] - [facility] 02/04/2024 12:36:28 06/02/2024 text/html ROS as noted in the HPI concern for hearing loss. Was seen 01/2024 with hearing concern. Audio was not very reliable. She reports she still has trouble hearing in some situations. Audio today showed normal hearing. Her reliability was fair. JASWANT FONSECA MD [address] [place] [address], [phone], [facility] 06/02/2024 12:45:33 OBGyn Episode No OBEpisode recorded.
--- OUTSIDE RECORDS SUMMARY | 2025-06-08 18:55 | XMS_ITS | Encounter Summary ---
Author Organization [employer] Address [address] [facility] 7t [place] [address] Care Team Providers Care Apron Cleaner Name Role Phone Lea Santiago RESIDENTIAL NURSE Primary Care Provider [phone] Reason for Visit * Reason Onset Date Comments Med Refill 11/04/2023 Encounter Details Date Type Department Care Team (Late st Contact Info) Description 11/04/[address] [facility] [address] [place], [place] [phone] Name, MD Tesfaye [address] [place] [address] Mild intermittent asthma without complication Social History [...] documented as of this encounter Care Teams Apron Cleaner Relationship Specialty Start Date End Date Lea Santiago FNP [address] [place] [phone] PCP - General Family Medicine 04/22/22 documented as of this encounter
--- OUTSIDE RECORDS SUMMARY | 2025-06-08 18:55 | XMS_ITS | Encounter Summary ---
Author Organization [employer] Address [address] [facility] 7t [place] [address] Care Team Providers Care Skidder Runner Name Role Phone Lae Santiago STORE DETECTIVE Primary Care Provider [phone] Reason for Visit * Reason Onset Date Comments Med Refill 11/04/2023 Encounter Details Date Type Department Care Team (Late st Contact Info) Description 11/04/2023 Refill [facility] [address] [place] [address] Rhonda Orr FNP [address] [place], [place] [phone] Social History Tobacco Use Types Packs/Day Years [...] documented as of this encounter Care Teams Skidder Runner Relationship Specialty Start Date End Date Lea Santiago FNP [address] [place] [id number] PCP - General Family Medicine 04/22/22 documented as of this encounter
--- OUTSIDE RECORDS SUMMARY | 2025-06-08 18:55 | XMS_ITS | Clinical Summary ---
Author Organization [facility] Address [address] [place] [address] Phone Care Team Providers Care Control Operator Name Role Phone Unavailable Primary Care Provider Unavailabl e Encounters Date Type Department Care Team Description 03/25/2025 Orders Only [facility] Genetics Metabolism [address] [place] [phone] John Paul Jeong MD Family history of genetic disorder (Primary Dx) 03/25/2025 Telephone [facility] Genetics Metabolism [address] [place] [phone] John Paul Jeong MD 03/25/2025 Orders Only [facility] Genetics Metabolism [address] [place] [phone] John Paul Jeong MD Family history of genetic disorder (Primary Dx) from Last 3 Months Social History Tobacco Use Types Packs/Day Years Used Date Smoking Tobacco: Never Assessed Comments Unknown Sex and Gender Information Value Date Recorded Sex Assigned at Not on file Legal Sex Female 9:00 AM EDT Gender Identity Not on file Sexual Orientation Not on file Plan of Treatment Health Maintenance Due Date Last Done Comments Chlamydia and Gonorrhea Screening 1993 HIV Screening 1993 MMR Vaccines (1 of 1 - Standard series) 1994 Anemia Screening 2005 Varicella Vaccines (1 of 2 - 13+ 2-dose series) 2006 Hepatitis C Screening 2011 Hepatitis B Vaccines (1 of 3 - 19+ 3-dose series) 2012 DTaP/Tdap/Td Vaccines (2 - Td or Tdap) 07/21/2021 06/23/2021 Influenza Vaccine (#1) 2025 , 07/10/2023, 06/23/2021, Additional history exists Pneumococcal Vaccine: Pediatrics (0 to 5 Years) and At-Risk Patients (6 to 49 Years) Aged Out 05/08/2024 No longer eligible based on patient's age to complete this topic HIB Vaccines Aged Out No longer eligi ble based on patient's age to complete this topic HPV Vaccines (No Doses Required) Completed Hepatitis A Vaccines Aged Out No long er eligible based on patient's age to complete this topic IPV Vaccines Aged Out No longer eligi ble based on patient's age to complete this topic Meningococcal B Vaccine Aged Out No l onger eligible based on patient's age to complete this topic Meningococcal Vaccine Aged Out No kirill shorty eligible based on patient's age to complete this topic Rotavirus Vaccines Aged Out No longer eligible based on patient's age to complete this topic Procedures Procedure Name Priority Date/Time Associated Diagnosis Comments TARGETED VARIANT ANALYSIS ([facility]) Routine 03/25/2025 5:08 PM EDT Family history of genetic disorder from Last 3 Months Results * Targeted Variant (03/25/2025 5:08 PM EDT) Swab Buccal mucosa / Unknown Non-blood Collection / Unknown 03/25/2025 5:08 PM EDT 03/25/2025 5:08 PM EDT John Paul Jeong MD LAB GENETICS ORDERABLES Fin al Result [facility] [address] [place] [address], from Last 3 Months Insurance [facility]
--- OUTSIDE RECORDS SUMMARY | 2025-06-08 18:55 | XMS_ITS | Encounter Summary ---
Author Organization [employer] Address 75 [facility] 7t [place] [address] Care Team Providers Care Finishing Range Supervisor Name Role Phone [facility] Primary Care Provider [phone] Reason for Visit * Reason Onset Date Comments Med Refill 04/30/2025 Encounter Details Date Type Department Care Team (Late st Contact Info) Description 04/30/2025 Refill [facility] MEDICINE [address] [place] [address] [facility] [address] [place] [address] Social History Tobacco Use Types Packs/Day Years [...] documented as of this encounter Care Teams Finishing Range Supervisor Relationship Specialty Start Date End Date Lea Santiago FNP [address] [place] [phone] PCP - General Family Medicine 04/22/22 documented as of this encounter
--- OUTSIDE RECORDS SUMMARY | 2025-06-08 18:55 | XMS_ITS | Encounter Summary ---
Author Organization [employer] Address [address] [facility] 7t [place] [address] Care Team Providers Care Steam Brush Operator Name Role Phone Maxie [facility] Primary Care Provider [phone] Reason for Visit * Reason Onset Date Comments Med Refill 11/24/2024 Encounter Details Date Type Department Care Team (Late st Contact Info) Description 11/24/2024 Telephone [facility] MEDICINE [address] [place] [address] [facility] [address] [place], [place] [id number] Med Refill Social History Tobacco Use Types [...] 1:06 PM EDT Medication was sent to [facility] Pharmacy with 11 refills please advise patient to call pharmacy and transfer medication. * Telephone Encounter - Dawson Ruffin - 11/24/2024 12:23 PM EDT TC from pt requesting medication refill. Medications needing refill : dulaglutide (Trulicity) 0.75 MG/0.5ML solution pen-injector To be sent to: [facility]/pharmacy #[id number] [facility], [place] - [address] [place] [address] documented in this encounter Plan of Treatment Not on file documented as of this encounter Visit Diagnoses Not on filedocumented in this encounter Additional Health Concerns Assessment Noted Time PHQ-9 Depression Total Score: 0 07/10/20 10:14 AM EST documented as of this encounter Care Teams Steam Brush Operator Relationship Specialty Start Date End Date [facility] GENE Tate [address] [place] [address] PCP - General Family Medicine 04/22/22 documented as of this encounter
--- OUTSIDE RECORDS SUMMARY | 2025-06-08 18:55 | XMS_ITS | Clinical Summary ---
Author Organization [address] [facility] Address [address] [place] [address] Phone Care Team Providers Care Anchor Operator Name Role Phone Pamela Kerrick Primary Care Provider [phone] Encounters Date Type Department Care Team Description 04/15/2025 10:30 AM EDT Office Visit Orthopedic Surgery [facility] [address] [address] Adrián Mayer, JUNIOR Metatarsalgia of both feet (Primary Dx); Neuritis from Last 3 Months Social History Tobacco Use Types Packs/Day Years Used Date Smoking Tobacco: Never Assessed Comments Unknown Sex and Gender Information Value Date Recorded Sex Assigned at Not on file Legal Sex Female 11:40 AM EDT Gender Identity Not on file Sexual Orientation Not on file Last Filed Vital Signs Vital Sign Reading Time Taken Comments Blood Pressure - - Pulse - - Temperature - - Respiratory Rate - - Oxygen Saturation - - Inhaled Oxygen Concentration - - Weight 92.1 kg (203 lb) 04/15/2025 11:01 AM EDT Height 162.6 cm (5' 4 ) 04/15/2025 11:01 AM EDT Body Mass Index 34.84 04/15/2025 11:01 AM EDT Plan of Treatment Health Maintenance Due Date Last Done Comments Diabetes: Annual Foot Exam 2003 Hepatitis B Vaccines (1 of 3 - 19+ 3-dose series) 2012 HPV Vaccines (1 - 3-dose SCDM series) 2020 Depression Screening 08/26/2024 HIV Screening 12/26/2024 Hepatitis C Screening 12/26/2024 Social Influencers of Health Screening 12/26/2024 Diabetes: Annual Urine Albumin-Creatinine Ratio (uACR) 02/17/2025 COVID-19 Vaccine ( season) 2025 Influenza Vaccine (#1) 2025 , 07/10/2023, 06/23/2021, Additional history exists Diabetes: Blood Sugar Control Test (HGBA1C) 05/29/2025 11/27/2024 Diabetes: Annual GFR (Glomerular Filtration Rate) 11/27/2025 11/27/2024 Diabetes: Annual Retina Eye Exam 02/16/2026 02/16/2025 Cervical Cancer Screening: Pap Smear 08/09/2026 08/09/2023 Cholesterol Screening (Lipid Panel) 11/27/2029 11/27/2024 DTaP,Tdap,and Td Vaccines (2 - Td or Tdap) 06/23/2031 06/23/2021 RSV Immunization Adult Patients (1 - 1-dose 75+ series) 2068 Pneumococcal Vaccine: Pediatrics (0 to 5 Years) and At-Risk Patients (6 to 49 Years) Completed 05/08/2024 HIB Vaccines Aged Out No longer eligi ble based on patient's age to complete this topic Hepatitis A Vaccines Aged Out No long er eligible based on patient's age to complete this topic IPV Vaccines Aged Out No longer eligi ble based on patient's age to complete this topic MMR Vaccines Aged Out No longer eligi ble based on patient's age to complete this topic Meningococcal ACWY Vaccine Aged Out N o longer eligible based on patient's age to complete this topic Meningococcal B Vaccine Aged Out No l onger eligible based on patient's age to complete this topic RSV Immunization Patients Under 20 months Aged Out No longer eligible based on patient's age to complete this topic Varicella Vaccines Aged Out No longer eligible based on patient's age to complete this topic Insurance [place] - [place] Care Teams Anchor Operator Relationship Specialty Start Date End Date [facility] [address] [address] PCP - General Family Medicine 12/26/24
--- OUTSIDE RECORDS SUMMARY | 2025-06-08 18:55 | XMS_ITS | Encounter Summary ---
Author Organization [employer] Address [address] [facility] 7t [place] [address] Care Team Providers Care Hospital Admissions Clerk Name Role Phone Lea Santiago DIE MOUNTER Primary Care Provider [phone] Reason for Visit * Reason Comments Med Refill Encounter Details Date Type Department Care Team (Late st Contact Info) Description 05/21/2023 Refill [facility] [address] [place] [address] Rizwan Almanzar MD [address] [place] [address] Social History Tobacco Use Types Packs/Day Years [...] documented as of this encounter Care Teams Hospital Admissions Clerk Relationship Specialty Start Date End Date [place] GENE Tate [address] [place] [id number] PCP - General Family Medicine 04/22/22 documented as of this encounter
--- OUTSIDE RECORDS SUMMARY | 2025-06-08 18:55 | XMS_ITS | Encounter Summary ---
Author Organization [employer] Address [address] [facility] 7t [place] [address] Care Team Providers Care Medical Records Receptionist Name Role Phone [facility] Primary Care Provider [phone] Reason for Visit * Reason Comments Med Change Request Encounter Details Date Type Department Care Team ([facility] st Contact Info) Description 02/18/2023 Refill [facility] MEDICINE [address] [place] [address] [facility] [address] [place] [address] Type 2 diabetes mellitus without complication, without long-term current use of insulin ([facility]) Social History Tobacco Use Types Packs/Day [...] AM EDT documented as of this encounter Functional Status * Over the past 2 weeks, how often have you been bothered by any of the following problems? Question Answer Date of Assessment Author Patient Health Questionnaire-2 Score 0 02/18/2023 4:20 PM FRACISCOT Lore Nichole [place] * Over the past 2 weeks, how often have you been bothered by any of the following problems? Question Answer Date of Assessment Author Little interest or pleasure in doing things Not at all 02/18/2023 4:20 PM FRACISCOT Lore Nichole [place] Feeling down, depressed, or hopeless Not at all 02/18/2023 4:20 PM EDT Lore Nichole [place] Trouble falling or staying asleep, or sleeping too much Not at all 02/18/2023 4:20 PM EDT Lore López MA Feeling tired or having little energy Not at all 02/18/2023 4:20 PM FRACISCOT Lore Nichole [place] Poor appetite or overeating Not at all 02/18/2023 4: 20 PM EDT Lore Nichole MA Feeling bad about yourself - or that you are a failure or have let yourself or your family down Not at all 02/18/2023 4:20 PM FRACISCOT Lore Nichole MA Trouble concentrating on things, such as reading the newspaper or watching television Not at all 02/18/2023 4:20 PM FRACISCOT Lore Nichole MA Moving or speaking so slowly that other people could have noticed? Or the opposite - being so fidgety or restless that you have been moving around a lot more than usual. Not at all 02/18/2023 4:20 PM EDT Lore Mandel MA Thoughts that you would be better off or hurting yourself in some way Not at all 02/18/2023 4:20 PM FRACISCOT Lore Nichole MA Patient Health Questionnaire-9 Score 0 02/18/2023 4:20 PM FRACISCOT Lore Nichole [place] documented as of this encounter Plan of Treatment Not on file documented as of this encounter Visit Diagnoses Diagnosis Type 2 diabetes mellitus without complication, without long-term current use of insulin (HCC) documented in this encounter Additional Health Concerns Assessment Noted Time PHQ-9 Depression Total Score: 0 02/19/20 23 4:20 PM EDT documented as of this encounter Care Teams Medical Records Receptionist Relationship Specialty Start Date End Date Lea Santiago FNP [address] [place] [id number] PCP - General Family Medicine 04/22/22 documented as of this encounter
--- OUTSIDE RECORDS SUMMARY | 2025-06-08 18:55 | XMS_ITS | Encounter Summary ---
Demographics Address [address] [facility] [address] [place] [address] Mobile Phone Work Phone Email Address Preferred Language en Marital Status Single Yarsanism Affiliation Unknown Race Other Race Ethnic Group Unknown Author Organization [employer] Address [address] [facility] 7t [place] [address] Care Team Providers Care Vending Machine Servicer Name Role Phone Lea Santiago HOSPITAL LABORATORY TECHNICIAN Primary Care Provider [phone] Encounter Details Date Type Department Care Team (Latest Contact Info) Description 06/08/2025 Travel Social History Tobacco Use Types Packs/Day [...] documented as of this encounter Care Teams Vending Machine Servicer Relationship Specialty Start Date End Date Lea Santiago FNP [address] [place] [id number] PCP - General Family Medicine 04/22/22 documented as of this encounter
--- OUTSIDE RECORDS SUMMARY | 2025-06-08 18:55 | XMS_ITS | Clinical Summary ---
Author Organization [employer] Address 75 [facility] 7t [place] [address] Care Team Providers Care Talent Manager Name Role Phone Lea Santiago BRASS INSTRUMENT REPAIR TECHNICIAN Primary Care Provider [phone] Allergies Active Allergy Reactions Criticality Noted Date Comments Shellfish Allergy Shortness of breath High 1 Shellfish Protein-Containing Drug Products 03/25/2017 Medications ketotifen (Zaditor) 0.025 % ophthalmic solutionIndicati ons:Mild intermittent asthma without complication ADMINISTER 1 DROP INTO BOTH EYES TWICE A DAY 10 mL 11/06/19 24 Active triamcinolone (Nasacort) 55 MCG/ACT nasal inhaler SPRAY 2 SPRAYS INTO EACH NOSTRIL IN THE MORNING 50.7 mL 1 04/20/20 24 Active acetaminophen (Tylenol) 500 MG tablet TAKE 2 TABLETS BY MOUTH EVERY 6 HOURS IF NEEDED FOR MODERATE PAIN OR FEVER 50 tablet 05/04/20 24 Active Diclofenac Sodium 1 % gelIndications:A rthralgia of both hands APPLY 2 GRAMS TOPICALLY TO THE AFFECTED AREA TWICE A DAY 100 g 1 10/07/19 25 Active FreeStyle lancetsIndicatio ns:Type 2 diabetes mellitus without complication, without long-term current use of insulin (HCC) 1 each by Other route 4 times daily. USE TO TEST BLOOD SUGAR FOUR TIMES A DAY 100 each 11/28/19 25 Active glucose blood test stripIndications :Type 2 diabetes mellitus without complication, without long-term current use of insulin (HCC) USE TO TEST BLOOD SUGAR FOUR TIMES A DAY 100 each 11/28/19 25 Active Alcohol Swabs (Alcohol Prep) padsIndications: Type 2 diabetes mellitus without complication, without long-term current use of insulin ([facility]) Use one pad each to prep skin prior to injection as directed 100 each 11 11/28/19 25 Active Blood Glucose Monitoring Suppl (GNP Easy Touch Glucose Meter) deviceIndication s:Type 2 diabetes mellitus without complication, without long-term current use of insulin ([facility]) Use as directed to check blood sugar four times daily 1 each 02/20/20 25 Active capsaicin (Zostrix) 0.025 % cream APPLY TOPICALLY TO THE AFFECTED AREA(S) TWICE DAILY Active ibuprofen 600 MG tablet Take 1 tablet by mouth 3 times daily. 11/03/19 22 Active metFORMIN (Glucophage) 500 MG tablet TAKE 1 TABLET BY MOUTH TWICE DAILY IN THE MORNING AND IN THE EVENING WITH MEALS Active naproxen (Naprosyn) 500 MG tablet TAKE 1 TABLET BY MOUTH TWICE DAILY NEEDED FOR MODERATE PAIN Active Dulaglutide 0.75 MG/0.5ML solution auto-injectorInd ications:Type 2 diabetes mellitus without complication, without long-term current use of insulin ([facility]) Inject 0.75 mg under the skin 1 (one) time per week. 2 mL 3 04/07/20 25 026 Active albuterol 108 (90 Base) MCG/ACT inhalerIndicatio ns:Mild intermittent asthma without complication INHALE 2 PUFFS BY MOUTH EVERY 6 HOURS IF NEEDED FOR WHEEZING 18 g 11 04/30/20 25 Active Spacer/Aero-Hold ing Chambers (AeroChamber MV) inhalerIndicatio ns:Mild intermittent asthma without complication USE as INSTRUCTED 1 each 2 04/30/20 25 Active loratadine (Claritin) 10 MG tablet TAKE 1 TABLET BY MOUTH EVERY DAY IN THE MORNING 90 tablet 1 04/30/20 25 Active celecoxib (CeleBREX) 200 MG capsuleIndicatio ns:Chronic pain of both feet TAKE 1 CAPSULE BY MOUTH TWICE A DAY 60 capsule 05/12/20 25 Active celecoxib (CeleBREX) 200 MG capsuleIndicatio ns:Chronic pain of both feet TAKE 1 CAPSULE BY MOUTH TWICE A DAY 60 capsule 04/13/20 25 025 Discontinued Active Problems Problem Noted Date Diagnosed Date Mixed hyperlipidemia 12/11/2024 Tachycardia 02/21/2023 Overview (02/21/2023): Hx of intermittent tachycardia with shortness of breath EKG neg 12/2022 TSH/CBC WNL 11/2022 Referral to cardiology 12/2022 Assessment & Plan (02/21/2023 5:59 AM EDT): Has upcoming assessment with cardiology Continue to monitor ED if a/w shortness of breath, weakness, chest pain Healthcare maintenance 02/21/2023 Overview (02/21/2023): Mammo: Routine age 43 Pap: Approx 2 years ago, normal at [facility] C-scope: Routine age 43 Assessment & Plan (05/13/2023 11:21 AM EDT): Pt declines flu vaccine today Would prefer to follow up with cervical cancer screening through [facility]. Will schedule patient for pap follow up Mild intermittent asthma without complication Overview (02/21/2023): Albuterol PRN Assessment & Plan (02/21/2023 6:00 AM EDT): Inhaler refilled Contact HC if requiring rescue inhaler >2x/week ACT score at follow up Intervertebral disc disorder of lumbar region with myelopathy 12/05/2022 Overview (02/21/2023): Duloxetine Type 2 diabetes mellitus without complication Overview (05/13/2023): Trulicity .75mg Unable to tolerate metformin 01/2023- 9.0 BMP: [...] Component Value Date HGBA1C 8.5 (A) 08/09/2023 INCREASE Trulicity to 1.5mg subcutaneous Plan to update labs at follow up Assessment & Plan (05/13/2023 11:20 AM EDT): Lab Results Component Value Date HGBA1C 8.5 (A) 05/13/2023 A1c improving. Enaged in shared decision making with patient re treatment options. Patient prefers to restart trulicity at lower dose and trial strict dietary changes. 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/2020 02/21/2023 Disorder of thyroid gland 11/01/2015 Encounters Date Type Department Care Team Description 06/08/2025 9:40 AM EDT Office Visit [facility] [address] [place] [address] Neha Roque MD Vaginal bleeding (Primary Dx); Vaginal discharge 06/08/2025 Travel 05/20/2025 3:15 PM EDT Office Visit [facility] OPTOMETRY [address] [place] [address] Bell Klein, EMERITA Diabetes type 2, no ocular involvement ([facility]) (Primary Dx); Myopia, bilateral; Accommodative insufficiency 05/20/2025 Travel 05/19/2025 Travel 05/11/2025 Refill [facility] MEDICINE [address] [place] [address] Ana Villar MD Chronic pain of both feet 05/07/2025 Telephone [facility] MED[facility] [address] [place] [address] Lea Santiago FNP Medication Question 04/30/2025 Refill [facility] MED[facility]INE [address] [place] [address] [facility] Mild intermittent asthma without complication 04/30/2025 Refill [facility] MED[facility] [address] [place] [address] [facility] 04/13/2025 Refill C MEDICINE [address] [place] [address] Jody Ingram DO Chronic pain of both feet 04/09/2025 Telephone [facility] MED[facility] [address] [place] [address] [facility] fax report 04/06/2025 Refill [facility] MED[facility] [address] [place] [address] Kate Mcdonald NP Type 2 diabetes mellitus without complication, without long-term current use of insulin ([facility]) 03/19/2025 Refill [facility] MED[facility] [address] [place] [address] [facility] Type 2 diabetes mellitus without complication, without long-term current use of insulin ([facility]) 03/16/2025 Refill [facility] MED[facility]INE [address] [place] [address] [facility] Chronic pain of both feet from Last 3 Months Immunizations Immunization Administration Dates Next Due Influenza injectable quadrivalent [...] (200 lb) 06/08/2025 9:54 AM EDT Height 162.6 cm (5' 4 ) 01/05/2025 11:26 AM EDT Body Mass Index 34.33 01/05/2025 11:26 AM EDT Plan of Treatment Health Maintenance Due Date Last Done Comments HIV Screening 1995 Disability Screening 1993 Alcohol/Substance Use Screening 2005 Family Planning (PISQ) 2008 HPV Vaccines (1 - 3-dose series) 2008 Hepatitis B Vaccines (1 of 3 - 19+ 3-dose series) 2012 HPV/Cotest 2023 Depression Screening 07/10/2024 07/10/2023, 07/10/20 23 Diabetes: Hemoglobin A1C 02/26/2025 025, 05/08/2024, 08/09/2023, Additional history exists COVID-19 Vaccine () 04/26/2025 08/15/2021, 07/14/2021 Influenza Vaccine (#1) 2025 , 07/10/2023, 06/23/2021, Additional history exists Diabetes: Foot Exam 05/08/2025 05/08/2024, 05/08/2024, 05/08/2024, Additional history exists Diabetes: Urine Protein Screening 05/20/2025 05/20/2024 SDOH Screening 06/15/2025 06/15/2024 Lipid Panel 11/27/2025 11/27/2024, 08/0 10/2021, 12/14/2020, Additional history exists Tobacco Screening 06/08/2026 06/08/2025 Eye Exam 05/20/2027 05/20/2025, 04/27, 05/20/2025, Additional history exists Cervical Cancer Screening 08/09/2028 Pap Smear 08/09/2028 08/09/2023 DTaP/Tdap/Td Vaccines (2 - Td or Tdap) 06/23/2031 06/23/2021 Zoster Vaccines (1 of 2) 2043 RSV Patients and Patients Aged 60 years or older (1 - 1-dose 75+ series) 2068 Hepatitis C Screening Completed 12/14/2020 Pneumococcal Vaccine: Pediatrics (0 to 5 Years) and At-Risk Patients (6 to 49) Years Completed 05/08/2024 HIB Vaccines Aged Out No [...] Routine 06/08/2025 10:10 AM EDT Vaginal discharge HEMOGLOBIN A1C Routine 11/27/2024 12:25 PM EDT Type 2 diabetes mellitus without complication, without long-term current use of insulin (CMS/HCC) LIPID PANEL, STANDARD Routine 11/27/2024 12:25 PM EDT Type 2 diabetes mellitus without complication, without long-term current use of insulin (CMS/HCC) ALBUMIN, RANDOM URINE W/CREATININE Routine 05/20/2024 3:03 PM EDT Type 2 diabetes mellitus without complication, without long-term current use of insulin (CMS/HCC) PAP SMEAR Routine 08/09/2023 2:56 PM EST Encounter for routine gynecological examination with Papanicolaou smear of cervix ZZZ HISTORICAL HEPATITIS C AB W/REFL TO HCV RNA, QN, PCR Routine 12/14/2020 11:04 AM EDT from Last 3 Months or Most Recently Relevant to Health Maintenance Results * POCT , urine manually resulted (06/08/2025 10:28 AM EDT) Preg Test, Ur Negative Negative, Indeterminate, None Detected, Invalid, Specimen unsatisfactory for evaluation, Weakly Positive, 2+ Urine 06/08/2025 10:2 8 AM EDT Neha Roque MD POINT OF CARE TEST ENTER/EDIT ORDERABLES Final Result * (ABNORMAL) POCT urinalysis dipstick manually resulted (CPT 33596) (06/08/2025 10:10 AM EDT) Color, UA Robeline Clarity, UA Clear Glucose, UA Negative Bilirubin, [...] TEST ENTER/EDIT ORDERABLES Final Result * (ABNORMAL) Hemoglobin A1c (11/27/2024 12:25 PM EDT) Hemoglobin A1c 7.4(H) <6.0 % [facility] Comment:Hemoglobin A1C Refer ence Range Adults: 4.8 - 6.0 % Non diabetic: < 6.0 % Goal: < 7.0 %Additional Action Suggested: > 8.0 %Note: Hemoglobin A1c results are invalid for patients with abnormal amounts of HbF. Blood transfusions may impact the HbA1c concentration in the patient sample. Estimated Average Glucose 166 mg/dL [facility] Comment:eAG = Estimated ave rage glucose which is %A1C expressed asaverage glucose, using the formula of the [id number] Glucose study (ADAG), Diabetes Care, Vol.31,#8,2007 Blood Venous blood specimen / Unknown 11/27/2024 12:25 PM EDT 11/27/2024 1:21 PM EDT [facility] LAB BLOOD ORDERABLES Final Re sult Performing Organization Address City/[facility]/ZIP Co de Phone Number [facility] [address] [place] [address] [phone] * (ABNORMAL) Lipid Panel, Standard (11/27/2024 12:25 PM EDT) Triglycerides 246(H) <150 mg/dL [facility] Comment:Desirable Triglyceri de: less than 150 mg/dLBorderline High Triglyceride 150-199 mg/dLHigh Triglyceride: 200-499 mg/dLVery High Triglyceride: greater than or equal to 5OO mg/dL Cholesterol 237(H) <200 mg/dL [facility] Comment:Desirable Cholestero l: less than 200 mg/dLBorderline High Cholesterol: 200-239 mg/dLHigh Cholesterol: greater than 239 mg/dL LDL Cholesterol Calculated 139(H) <100 mg/dL [facility] Comment:Desirable LDL: less than 100 mg/dLNear Optimal/Above Optimal LDL: 110- 129 mg/dLBorderline High LDL: 130-159 mg/dLHigh LDL: 160-189 mg/dLVery High LDL: greater than or equal to 190 mg/dL HDL Cholesterol 49 >40 mg/dL [facility] Comment:Desirable HDL: great er than 40 mg/dL Note: This HDL assay may give artificially low results in patients with liver disease. Blood Venous blood specimen / Unknown 11/27/2024 12:25 PM EDT 11/27/2024 1:38 PM EDT [facility] LAB BLOOD ORDERABLES Final Re sult Performing Organization Address City/[facility]/ZIP Co de Phone Number [facility] [address] [place] [address] [phone] * Albumin, Random Urine W/Creatinine (05/20/2024 3:03 PM EDT) Creatinine, Urine 137.08 mg/dL [facility] Microalbumin Urine 8.0 mg/L [facility] Microalbum Creatinine Ratio Ur 5.8 <30 ug/mg cr [facility] Comment:Albumin/Creatinine R atio Reference Ranges: Normal: < 30 ug/mg creatinine Microalbuminuria: 30 - 300 ug/mg creatinineClinical Albuminuria: > 300 ug/mg creatinine Urine 05/20/2024 3:03 PM EDT 05/20/2024 4:26 PM EDT [facility] URINE ORDERABLES Final Re sult [facility] [address] [place] [phone] * Pap Smear (08/09/2023 2:56 PM EST) Swab 08/09/2023 2:56 PM EST 08/12/2023 12:00 PM EST Narrative [facility] - 08/14/2023 11:37 AM EST ----- ------- Name: Yao Sanches Age/Sex: 28/F : 1995 Unit#: [id number] Manish Dr: Re08/09/23 Status: PRE REF Location: [facility] Disch: ----- ------- SPEC : [id number] RECD: 08/12/23-1199 STATUS: MAEGAN JONES NUM: [id number] BATSHEVA: 08/09/23-[address] ENTERED: 08/12/23-1325 SP TYPE: Pap Smr OTHR DR: ORDERED: Pap Smear Interpretation Satisfactory for evaluation. Coccobacilli consistent with shift in vaginal lurdes. Negative for intraepithelial lesion or malignancy. Clinical Information LMP: 07/31/2023 Previous PAP test: Unknown date/findings Material Received ThinPrep-Vaginal/Cervical ----- ------- Signed (signature on file) GURMEET Cali (ASCP) 08/14/23 1137 ----- ------- END OF REPORT [facility] CYTOLOGY ORDERABLES Final Result [facility] [address] [place] [phone] * HEPATITIS C AB W/REFL TO HCV RNA, QN, PCR (12/14/2020 11:04 AM EDT) HEPATITIS C ANTIBODY NON-REACT FRITZ NON-REACT FRITZ [facility] INDEX 0.03 <1.00 [facility] Comment: HCV antibody was non-reactive. There is no laboratory evidence of HCV infection. In most cases, no further action is required. However, if recent HCV exposure is suspected, a test for HCV RNA (test code 75954) is suggested. For additional information please refer to http://education.[employer]/faq/QLL89x6 (This link is being provided for informational/ educational purposes only.) 12/14/2020 11:0 4 AM EDT Honey Cooper BRASS INSTRUMENT REPAIR TECHNICIAN HISTORICAL/NON ORDERABLE LABS Final Result [facility] [address] from Last 3 Months or Most Recently Relevant to Health Maintenance Insurance [facility] Care Teams Talent Manager Relationship Specialty Start Date End Date Lea Santiago FNP [address] [place] [phone] PCP - General Family Medicine 04/22/22
--- OUTSIDE RECORDS SUMMARY | 2025-06-08 18:55 | XMS_ITS | Encounter Summary ---
Author Organization [employer] Address [address] [facility] 7t [place] [address] Care Team Providers Care High Energy Forming Equipment Operator Name Role Phone [place] [facility] Primary Care Provider [phone] Reason for Visit * Reason Comments Med Refill Encounter Details Date Type Department Care Team (Late st Contact Info) Description 02/18/2023 Refill [facility] [address] [place], [place] [phone] [facility] [address] [place] [address] Social History Tobacco Use Types Packs/Day Years [...] Health Questionnaire-2 Score 0 02/18/2023 4:20 PM EDT Lore Nichole MA * Over the past 2 weeks, how often have you been bothered by any of the following problems? Question Answer Date of Assessment Author Little interest or pleasure in doing things Not at all 02/18/2023 4:20 PM EDT Lore Nichole MA Feeling down, depressed, or hopeless Not at all 02/18/2023 4:20 PM EDT Lore Nichole MA Trouble falling or staying asleep, or sleeping too much Not at all 02/18/2023 4:20 PM EDT Lore López MA Feeling tired or having little energy Not at all 02/18/2023 4:20 PM EDT Lore Nichole MA Poor appetite or overeating Not at all 02/18/2023 4: 20 PM EDT Lore Nichole MA Feeling bad about yourself - or that you are a failure or have let yourself or your family down Not at all 02/18/2023 4:20 PM EDT Lore Nichole MA Trouble concentrating on things, such as reading the newspaper or watching television Not at all 02/18/2023 4:20 PM EDT Lore Nichole MA Moving or speaking so [...] documented as of this encounter Care Teams High Energy Forming Equipment Operator Relationship Specialty Start Date End Date Lea Santiago FNP [address] [place] [phone] PCP - General Family Medicine 04/22/22 documented as of this encounter
--- OUTSIDE RECORDS SUMMARY | 2025-06-08 18:55 | XMS_ITS | Encounter Summary ---
Author Organization [employer] Address [address] [facility] 7t [place] [address] Care Team Providers Care Medical Assistant Name Role Phone Lea Santiago FRUIT GROWER Primary Care Provider [phone] Reason for Visit * Reason Onset Date Comments Med Refill 01/27/2024 Encounter Details Date Type Department Care Team (Late st Contact Info) Description 01/27/2024 Refill [facility] [address] [place], [place] [phone] Name, MD [place] [address] [place] [address] Mild intermittent asthma without complication Social History [...] as of this encounter Care Teams Medical Assistant Relationship Specialty Start Date End Date Lea Santiago FNP [address] [place] [phone] PCP - General Family Medicine 04/22/22 documented as of this encounter
--- OUTSIDE RECORDS SUMMARY | 2025-06-08 18:55 | XMS_ITS | Encounter Summary ---
Author Organization [employer] Address [address] [facility] [address] [place] [address] Care Team Providers Care Engravings Polisher Name Role Phone Lea Santiago DIMENSION WAREHOUSE SUPERVISOR Primary Care Provider [phone] Reason for Visit * Reason Onset Date Comments Med Refill 11/04/2023 Encounter Details Date Type Department Care Team (Late st Contact Info) Description 11/04/2023 Refill [facility] [address] [place] [address] Rizwan Almanzar MD [address] [place] [address] Social History Tobacco Use Types Packs/Day Years [...] documented as of this encounter Care Teams Engravings Polisher Relationship Specialty Start Date End Date Lea Santiago FNP [address] [place] [phone] PCP - General Family Medicine 04/22/22 documented as of this encounter
[2025-06-08 21:56] LABS: Bacterial Vaginosis PCR POSITIVE (Negative); Candida Group PCR NOT DETECTED (Not Detect); Candida glab krusei PCR NOT DETECTED (Not Detect); Trichomonas vaginalis PCR NOT DETECTED (Not Detect)
[2025-06-08 22:33] LABS: CT PCR NOT DETECTED (Not Detect.); NG PCR NOT DETECTED (Not Detect.)
== END 2025-06-08 18:53 | disposition home or self-care (01) ==
LOC: HO.HHCLNP 18:52
PROVIDERS: Visit Provider Internal Medicine
DX: N89.8 Other specified noninflammatory disorders of vagina (principal); Z20.2 Contact with and (suspected) exposure to infections with a predominantly sexual mode of transmission
CPT/HCPCS: 81515; 87491; 87591

== ENCOUNTER 2025-08-11 11:11 | Emergency (ER) | payer OTHER, SELFPAY ==
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
[2025-08-11 11:17] VITALS: BP 160/88; PULSE 84; O2SAT 98
[2025-08-11 11:19] VITALS: BP 144/93; PULSE 104; RESP 18; TEMP 36.7; O2SAT 97; BMI 36.0
[2025-08-11 11:21] VITALS: BP 144/93; PULSE 72; RESP 16; TEMP 36.8; O2SAT 99
[2025-08-11 11:22] VITALS: BP 144/93; PULSE 104; RESP 18; TEMP 36.7; O2SAT 97
[2025-08-11] MEDS: Lidocaine 4 % Patch ADH..PATCH 1 PATCH TRANSDERMA (11:50)
[2025-08-11 12:00] VITALS: BP 127/88; PULSE 78; RESP 18; O2SAT 97
[2025-08-11 12:08] VITALS: BP 127/88; PULSE 78; RESP 18; TEMP 36.7; O2SAT 97
--- OUTSIDE RECORDS SUMMARY | 2025-08-11 15:51 | XMS_ITS | Clinical Summary ---
Author Organization [address] [facility] Address [address] [place] [address] Phone Care Team Providers Care Tester Equipment Name Role Phone [facility] Primary Care Provider [phone] Social History Tobacco Use Types Packs/Day Years [...] Albumin-Creatinine Ratio (uACR) 02/17/2025 COVID-19 Vaccine ( - 2024- season) 2025 Influenza Vaccine (#1) 2025 , [...] to complete this topic Insurance MEDICAID - [place] Care Teams Tester Equipment Relationship Specialty Start Date End Date [facility] [address] [phone] PCP - General Family Medicine 12/26/24
--- OUTSIDE RECORDS SUMMARY | 2025-08-11 15:51 | XMS_ITS | Encounter Summary ---
Author Organization [employer] Address [address] [facility] 7t [place] [address] Care Team Providers Care Concrete Panel Installer Name Role Phone Lea Santiago ATHLETIC FIELD CUSTODIAN Primary Care Provider [phone] Reason for Visit * Reason Onset Date Comments Med Refill 01/27/2024 Encounter Details Date Type Department Care Team (Late st Contact Info) Description 01/27/2024 Refill [facility] 230 [place], [place] [phone] Name, MD Tesfaye 230 [place] [address] Mild intermittent asthma without complication Social History [...] documented as of this encounter Care Teams Concrete Panel Installer Relationship Specialty Start Date End Date Lea Santiago FNP [address] [place] [id number] PCP - General Family Medicine 04/22/22 documented as of this encounter
--- OUTSIDE RECORDS SUMMARY | 2025-08-11 15:51 | XMS_ITS | Encounter Summary ---
Author Organization [employer] Address [address] [facility] 7t [place] [address] Care Team Providers Care Senior Planning Analyst Name Role Phone [facility] Primary Care Provider [phone] Reason for Visit * Reason Onset Date Comments Med Refill 04/30/2025 Encounter Details Date Type Department Care Team (Late st Contact Info) Description 04/30/2025 Refill [facility] [address] [place] [address] [facility] 230 [place] [address] Social History Tobacco Use Types Packs/Day Years [...] documented as of this encounter Care Teams Senior Planning Analyst Relationship Specialty Start Date End Date Lea Santiago FNP [address] [place] [phone] PCP - General Family Medicine 04/22/22 documented as of this encounter
--- OUTSIDE RECORDS SUMMARY | 2025-08-11 15:51 | XMS_ITS | Encounter Summary ---
Author Organization [employer] Address [address] [facility] [address]t [place] [address] Care Team Providers Care Pet Care Worker Name Role Phone Lea Santiago PROCESS SAFETY MANAGEMENT ENGINEER Primary Care Provider [phone] Encounter Details Date Type Department Care Team ([facility] st Contact Info) Description 06/29/2025 Results Follow-Up [facility] 230 [place] [address] Kamini Mitchell, JUANA 230 [place] [address] Bacterial Vaginosis, Chlamydia/N. Gonorrhoeae RNA, TMA, Urogenitial, POCT urinalysis dipstick manually resulted (CPT 15309), POCT , urine manually resulted Social History Tobacco Use Types Packs/Day Years [...] documented as of this encounter Care Teams Pet Care Worker Relationship Specialty Start Date End Date Lea Santiago FNP [address] [place] [phone] PCP - General Family Medicine 04/22/22 documented as of this encounter
--- OUTSIDE RECORDS SUMMARY | 2025-08-11 15:51 | XMS_ITS | Encounter Summary ---
Author Organization [employer] Address [address] [facility] 7t [place] [address] Care Team Providers Care Director Of Payroll Name Role Phone Lea Santiago METROLOGY SPECIALIST Primary Care Provider Reason for Visit * Reason Onset Date Comments Med Refill 11/04/2023 Encounter Details Date Type Department Care Team (Late st Contact Info) Description 11/04/2023 Refill [facility] 230 [place] [address] Rizwan Almanzar MD 230 [place] [address] Social History Tobacco Use Types Packs/Day Years [...] documented as of this encounter Care Teams Director Of Payroll Relationship Specialty Start Date End Date Lea Santiago FNP [address] [place] [phone] PCP - General Family Medicine 04/22/22 documented as of this encounter
--- OUTSIDE RECORDS SUMMARY | 2025-08-11 15:51 | XMS_ITS | Encounter Summary ---
Author Organization [employer] Address [address] [facility] 7t [place] [address] Care Team Providers Care Spiritual Advisor Name Role Phone Lea Santiago COMPENSATION AND BENEFITS ADVISOR Primary Care Provider [phone] Reason for Visit * Reason Comments Med Refill Encounter Details Date Type Department Care Team (Late st Contact Info) Description 05/21/[address] [facility] [address] [place] [address] Rizwan Almanzar MD 230 [place] [address] Social History Tobacco Use Types Packs/Day Years [...] documented as of this encounter Care Teams Spiritual Advisor Relationship Specialty Start Date End Date Pamela GENE Tate [address] [place] [phone] PCP - General Family Medicine 04/22/22 documented as of this encounter
--- OUTSIDE RECORDS SUMMARY | 2025-08-11 15:51 | XMS_ITS | Encounter Summary ---
Author Organization [employer] Address [address] [facility] [address]t [place] [address] Care Team Providers Care Wrapper Leaf Inspector Name Role Phone [facility] Primary Care Provider [phone] Reason for Visit * Reason Comments Med Change Request Encounter Details Date Type Department Care Team ([facility] st Contact Info) Description 02/18/2023 Refill [facility] 230 [place] [address] [facility] 230 [place] [address] Type 2 diabetes mellitus without complication, without long-term current use of insulin ([facility]) Social History Tobacco Use Types Packs/Day Years [...] at all 02/18/2023 4: 20 PM EDT Loer Nichole [place] Feeling bad about yourself - [...] documented as of this encounter Care Teams Wrapper Leaf Inspector Relationship Specialty Start Date End Date Lea Santiago FNP [address] [place] [id number] PCP - General Family Medicine 04/22/22 documented as of this encounter
--- OUTSIDE RECORDS SUMMARY | 2025-08-11 15:51 | XMS_ITS | Encounter Summary ---
Author Organization [employer] Address [address] [facility] 7t [place] [address] Care Team Providers Care Dewatering Filtering Supervisor Name Role Phone Lea Santiago PROCESS IMPROVEMENT ENGINEER Primary Care Provider [phone] Reason for Visit * Reason Onset Date Comments Med Refill 11/04/2023 Encounter Details Date Type Department Care Team (Late st Contact Info) Description 11/04/2023 Refill [facility] 230 [place] [address] Jody Ingram DO 230 [place], [place] [phone] Social History Tobacco Use Types Packs/Day Years [...] documented as of this encounter Care Teams Dewatering Filtering Supervisor Relationship Specialty Start Date End Date Lea Santiago FNP [address] [place] [phone] PCP - General Family Medicine 04/22/22 documented as of this encounter
--- OUTSIDE RECORDS SUMMARY | 2025-08-11 15:51 | XMS_ITS | Encounter Summary ---
Author Organization [employer] Address [address] [facility] 7t [place] [address] Care Team Providers Care Granulator Operator Name Role Phone [facility] Primary Care Provider [phone] Reason for Visit * Reason Onset Date Comments Med Refill 11/24/2024 Encounter Details Date Type Department Care Team (Late st Contact Info) Description 11/24/2024 Telephone [facility] 230 [place] [address] [facility] 230 [place], [place] [phone] Med Refill Social History Tobacco Use Types [...] 1:06 PM EDT Medication was sent to [facility] with 11 refills please advise patient to call pharmacy and transfer medication. * Telephone Encounter - Dawson Ruffin - 11/24/2024 12:23 PM EDT TC from pt requesting medication refill. Medications needing refill : dulaglutide (Trulicity) 0.75 MG/0.5ML solution pen-injector To be sent to: [facility]/pharmacy #[id number] [facility] [place] - [address] [place] [address] documented in this encounter Plan of Treatment Not on file documented as of this encounter Visit Diagnoses Not on filedocumented in this encounter Additional Health Concerns Assessment Noted Time PHQ-9 Depression Total Score: 0 07/10/20 10:14 AM EST documented as of this encounter Care Teams Granulator Operator Relationship Specialty Start Date End Date [facility] GENE Tate [address] [place] [address] PCP - General Family Medicine 04/22/22 documented as of this encounter
--- OUTSIDE RECORDS SUMMARY | 2025-08-11 15:51 | XMS_ITS | Clinical Summary ---
Author Organization [employer] Address [address] [facility] 7t [place] [address] Care Team Providers Care Hot Cell Technician Name Role Phone Lea Santiago BEADER Primary Care Provider Allergies Active Allergy Reactions [...] complication, without long-term current use of insulin ([facility]) Use one pad each to prep skin prior to injection as directed 100 each 11 11/28/19 25 Active Blood Glucose Monitoring Suppl (GNP Easy Touch Glucose Meter) deviceIndication s:Type 2 diabetes mellitus without complication, without long-term current use of insulin ([facility]) Use as directed to check blood sugar [...] complication, without long-term current use of insulin ([facility]) Inject 0.75 mg under the skin 1 [...] BY MOUTH TWICE A DAY 60 capsule 08/02/20 25 Active celecoxib (CeleBREX) 200 MG capsuleIndicatio ns:Chronic pain of both feet TAKE 1 CAPSULE BY MOUTH TWICE A DAY 60 capsule 06/21/20 25 025 Discontinued Active Problems Problem Noted [...] Pap: Approx 2 years ago, normal at [facility] C-scope: Routine age 43 Assessment & Plan (05/13/2023 11:21 AM EDT): Pt declines flu vaccine today Would prefer to follow up with cervical cancer screening through [facility]. Will schedule patient for pap follow [...] trial strict dietary changes. Accepts referral to [facility] DM educator Assessment & Plan (02/21/2023 [...] Encounters Date Type Department Care Team Description 07/31/2025 Refill [facility] [address] [place] [address] [place] Lea [facility] Chronic pain of both feet 06/29/2025 Results Follow-Up [facility] [address] [place] [address] Kamini Mitchell, JUANA Bacterial Vaginosis, Chlamydia/N. Gonorrhoeae RNA, TMA, Urogenitial, POCT urinalysis dipstick manually resulted (CPT 52394), POCT , urine manually resulted 06/19/2025 Refill [facility] [address] [place] [address] [place] Lea, [facility] Chronic pain of both feet 06/15/2025 Outside Procedure [facility] [address] [place] [address] Rick, Britt, OD Accommodative insufficiency (Primary Dx) 06/14/2025 9:15 AM EDT Office Visit [facility] [address] [place] [phone] Britt Cabrera, OD Myopia, bilateral (Primary Dx) 06/09/2025 Refill [facility] [address] [place] [address] Rosibel Lopez MD Bacterial vaginosis 06/08/2025 9:40 AM EDT Office Visit [facility] [address] [place] [address] Neha Roque MD Vaginal bleeding (Primary Dx); Vaginal discharge 06/08/2025 Travel 05/20/2025 3:15 PM EDT Office Visit [facility] OPT[facility] [address] [place], [place] [phone] Latoya Bell, OD Diabetes type 2, no ocular involvement (CMS/HCC) (Primary Dx); Myopia, bilateral; Accommodative insufficiency 05/20/2025 Travel 05/19/2025 Travel from Last 3 Months Immunizations Immunization Administration [...] HPV/Cotest 2023 Depression Screening 07/10/2024 07/10/2023, 07/10/20 Diabetes: Hemoglobin A1C 02/26/2025 025, 05/08/2024, 08/09/2023, Additional history exists COVID-19 Vaccine ( season) 2025 08/15/2021, 07/14/2021 Influenza Vaccine (#1) 2025 , 07/10/2023, 06/23/2021, Additional history exists Diabetes: Foot Exam 05/08/2025 05/08/2024, 05/08/2024, 05/08/2024, Additional history exists Diabetes: Urine Protein Screening 05/20/2025 05/20/2024, 05/20/2024 SDOH Screening 06/15/2025 06/15/2024 Lipid Panel [...] Routine 06/08/2025 10:10 AM EDT Vaginal discharge CHLAMYDIA/N. GONORRHOEAE RNA, TMA, UROGENITAL Routine 06/08/2025 9:57 AM EDT Vaginal discharge BACTERIAL VAGINOSIS PANEL Routine 06/08/2025 9:57 AM EDT Vaginal discharge HEMOGLOBIN A1C Routine [...] (ABNORMAL) POCT urinalysis dipstick manually resulted (CPT 17260) (06/08/2025 10:10 AM EDT) Color, UA [place] Clarity, UA Clear Glucose, UA Negative Bilirubin, [...] TEST ENTER/EDIT ORDERABLES Final Result * (ABNORMAL) Bacterial Vaginosis (06/08/2025 9:57 AM EDT) TRICHOMONAS VAGINALIS DETECTION BY PCR NOT DETECTED Not Detect [facility] BACTERIAL VAGINOSIS DETECTION BY PCR POSITIVE(A) Negative [facility] Comment:The BV organism targ ets [...] DETECTION BY PCR NOT DETECTED Not Detect [facility] Katina glab krusei PCR NOT DETECTED Not Detect [facility] Swab Vaginal structure / Unknown 06/08/2025 9:57 AM EDT 06/08/2025 6:53 PM EDT us Neha Roque MD LAB MICROBIOLOGY - GENERAL OR DERABLES Final Result [facility] [address] [place] [phone] * Chlamydia/N. Gonorrhoeae RNA, TMA, Urogenitial (06/08/2025 9:57 AM EDT) CT PCR NOT DETECTED Not Detect. [facility] Comment:A not detected test result [...] psychologicalconsequences. NG PCR NOT DETECTED Not Detect. [facility] Comment:A not detected test result [...] medical, social or psychologicalconsequences. Swab (Vaginal Swab) 06/08/2025 9:57 AM EDT 06/08/2025 6:53 PM EDT Neha Roque MD LAB MICROBIOLOGY - GENERAL OR DERABLES Final Result Performing Organization Address [facility] Co de Phone Number [facility] [address] [place] [phone] * (ABNORMAL) Hemoglobin A1c (11/27/2024 12:25 PM EDT) Hemoglobin A1c 7.4(H) <6.0 % [facility] Comment:Hemoglobin A1C Refer ence Range Adults: 4.8 - 6.0 % Non diabetic: < 6.0 % Goal: < 7.0 %Additional Action Suggested: > 8.0 %Note: Hemoglobin A1c results are invalid for patients with abnormal amounts of HbF. Blood transfusions may impact the HbA1c concentration in the patient sample. Estimated Average Glucose 166 mg/dL [facility] Comment:eAG = Estimated ave rage glucose which is %A1C expressed asaverage glucose, using the formula of the [id number] Glucose study (ADAG), Diabetes Care, Vol.31,#8,Mar. 2007 Blood Venous blood specimen / Unknown 11/27/2024 12:25 PM EDT 11/27/2024 1:21 PM EDT [facility] BEADER LAB BLOOD ORDERABLES Final Re sult Performing Organization Address [facility] Co de Phone Number [facility] [address] [place] [phone] * (ABNORMAL) Lipid Panel, Standard (11/27/2024 12:25 PM EDT) Triglycerides 246(H) <150 mg/dL [facility] Comment:Desirable Triglyceri de: less than 150 mg/dLBorderline High Triglyceride 150-199 mg/dLHigh Triglyceride: 200-499 mg/dLVery High Triglyceride: greater than or equal to 5OO mg/dL Cholesterol 237(H) <200 mg/dL [facility] Comment:Desirable Cholestero l: less than 200 mg/dLBorderline High Cholesterol: 200-239 mg/dLHigh Cholesterol: greater than 239 mg/dL LDL Cholesterol Calculated 139(H) <100 mg/dL [facility] Comment:Desirable LDL: less than 100 mg/dLNear Optimal/Above Optimal LDL: 110- 129 mg/dLBorderline High LDL: 130-159 mg/dLHigh LDL: 160-189 mg/dLVery High LDL: greater than or equal to 190 mg/dL HDL Cholesterol 49 >40 mg/dL [facility] Comment:Desirable HDL: great er than 40 mg/dL Note: This HDL assay may give artificially low results in patients with liver disease. Blood Venous blood specimen / Unknown 11/27/2024 12:25 PM EDT 11/27/2024 1:38 PM EDT [facility] LAB BLOOD ORDERABLES Final Re sult Performing Organization Address [facility] Co de Phone Number [facility] [address] [place] [phone] * Albumin, Random Urine W/Creatinine (05/20/2024 3:03 PM EDT) Creatinine, Urine 137.08 mg/dL [facility] Microalbumin Urine 8.0 mg/L [facility] Microalbum Creatinine Ratio Ur 5.8 <30 ug/mg cr [facility] Comment:Albumin/Creatinine R atio Reference Ranges: Normal: < 30 ug/mg creatinine Microalbuminuria: 30 - 300 ug/mg creatinineClinical Albuminuria: > 300 ug/mg creatinine Urine 05/20/2024 3:03 PM EDT 05/20/2024 4:26 PM EDT [facility] LAB URINE ORDERABLES Final Re sult Performing Organization Address [facility] Co de Phone Number [facility] [address] [place] [phone] * Pap Smear (08/09/2023 2:56 PM EST) Swab 08/09/2023 2:56 PM EST 08/12/2023 12:00 PM EST Fabrizio [facility] - 08/14/2023 11:37 AM EST ----- ------- Name: Yao Sanches Age/Sex: 28/F : 1995 Unit#: [id number] Attend Dr: Re08/09/23 Status: PRE REF Location: [facility] Disch: ----- ------- SPEC : [id number] RECD: 08/12/23-1199 STATUS: MAEGAN JONES NUM: [id number] BATSHEVA: 08/09/23-[address] [facility] [address]: Lea Santiago BEADER ENTERED: 08/12/23-1325 SP TYPE: Pap Smr [facility] DR: ORDERED: Pap Smear Interpretation Satisfactory for evaluation. Coccobacilli consistent with shift in vaginal lurdes. Negative for intraepithelial lesion or malignancy. Clinical Information LMP: 07/31/2023 Previous PAP test: Unknown date/findings Material Received ThinPrep-Vaginal/Cervical ----- ------- Signed (signature on file) GURMEET Cali (ASCP) 08/14/23 1137 ----- ------- END OF REPORT [facility] BEADER LAB CYTOLOGY ORDERABLES Final Result Performing Organization Address [facility] Co de Phone Number [facility] [address] [place] [phone] * HEPATITIS C AB W/REFL TO HCV RNA, QN, PCR (12/14/2020 11:04 AM EDT) HEPATITIS C ANTIBODY NON-REACT [facility] NON-REACT [facility] INDEX 0.03 <1.00 [facility] Comment: HCV antibody was non-reactive. There is no laboratory evidence of HCV infection. In most cases, no further action is required. However, if recent HCV exposure is suspected, a test for HCV RNA (test code 84919) is suggested. For additional information please refer to http://education.Mobile Multimedia/faq/YRW45k0 (This link is being provided for informational/ educational purposes only.) 12/14/2020 11:0 4 AM EDT [facility] [employer] BEADER HISTORICAL/NON ORDERABLE LABS Final Result Performing Organization Address City/[facility]/ZIP Co de Phone Number [facility] [address] [place] [address], from Last 3 Months or Most Recently Relevant to Health Maintenance Insurance [facility] C[facility] * Guarantor: Yao Sanches Account Type Relation to Patient Date of Phone Billing Address Personal/Family Self 1995 [address] [facility] [address] [place] [address] Care Teams Hot Cell Technician Relationship Specialty Start Date End Date Lea Santiago FNP [address] [place] [phone] PCP - General Family Medicine 04/22/22
--- OUTSIDE RECORDS SUMMARY | 2025-08-11 15:51 | XMS_ITS | Encounter Summary ---
Author Organization [employer] Address [address] [facility] 7t [place] [address] Care Team Providers Care Station Chief Name Role Phone Lea Santiago DIRECTOR STYLE Primary Care Provider [phone] Reason for Visit * Reason Onset Date Comments Med Refill 11/04/2023 Encounter Details Date Type Department Care Team (Late st Contact Info) Description 11/04/2023 Refill [facility] [address] [place], [place] [phone] Name, MD [place] [address] [place] [address] Mild intermittent asthma without complication Social History [...] documented as of this encounter Care Teams Station Chief Relationship Specialty Start Date End Date Lea Santiago FNP [address] [place] [phone] PCP - General Family Medicine 04/22/22 documented as of this encounter
--- OUTSIDE RECORDS SUMMARY | 2025-08-11 15:51 | XMS_ITS | Clinical Summary ---
Author Organization [facility] Address [address] [place] [address] Phone Care Team Providers Care Mutuel Teller Name Role Phone Unavailable Primary Care Provider Unavailabl e Social History Tobacco Use Types Packs/Day Years [...] (2 - Td or Tdap) 07/21/2021 06/23/2021 COVID-19 Vaccine (2 - season) 2025 07/14/2021 Influenza Vaccine (#1) 2025 , 07/10/2023, [...] patient's age to complete this topic Insurance [facility] [place] [facility]
--- OUTSIDE RECORDS SUMMARY | 2025-08-11 15:51 | XMS_ITS | Encounter Summary ---
Author Organization [employer] Address [address] [facility] 7t [place] [address] Care Team Providers Care Last Puller Name Role Phone [place] [facility] Primary Care Provider [phone] Reason for Visit * Reason Comments Med Refill Encounter Details Date Type Department Care Team (Late st Contact Info) Description 02/18/2023 Refill [facility] [address] [place], [place] [phone] [facility] [address] [place] [address] Social History Tobacco Use Types Packs/Day Years [...] Not at all 02/18/2023 4:20 PM EDT Loer Nichole [place] Moving or speaking so slowly [...] documented as of this encounter Care Teams Last Puller Relationship Specialty Start Date End Date Lea Santiago FNP [address] [place] [phone] PCP - General Family Medicine 04/22/22 documented as of this encounter
--- OUTSIDE RECORDS SUMMARY | 2025-08-11 15:51 | XMS_ITS | Encounter Summary ---
Author Organization [employer] Address [address] [facility] [address] [place] [address] Care Team Providers Care Library Clerk Name Role Phone Lea Santiago CARD MAKER Primary Care Provider [phone] Reason for Visit * Reason Onset Date Comments Med Refill 11/04/2023 Encounter Details Date Type Department Care Team (Late st Contact Info) Description 11/04/2023 Refill [facility] [address] [place] [address] Rhonda Orr FNP [address] [place], [place] [phone] Social History Tobacco Use Types Packs/Day Years [...] documented as of this encounter Care Teams Library Clerk Relationship Specialty Start Date End Date Lea Santiago FNP [address] [place] [phone] PCP - General Family Medicine 04/22/22 documented as of this encounter
== END 2025-08-11 12:12 | disposition home or self-care (01) ==
PROVIDERS: Emergency Provider Emergency Medicine
DX: M62.838 Other muscle spasm (principal); M54.2 Cervicalgia; Z79.899 Other long term (current) drug therapy; Z87.891 Personal history of nicotine dependence
CPT/HCPCS: 96372; 99283; 99284; J1885